=== PATIENT | male | born 1935 | race Caucasian/White ===

== ENCOUNTER 2016-10-06 15:52 | Outpatient (CLI) ==
[2014-01-19 11:38] VITALS: BMI 33.1
--- NOTE | 2016-10-06 16:19 | DI ---
Examination: Five and radiographic images of the cervical spine. Comparison: None available. Reason for study: Pain. FINDINGS: No obvious fracture or listhesis. There are moderate to severe multilevel degenerative d isc disease seen throughout the cervical spine with poor bone mineralization. There is apparent fus ion of the C5 and C6 vertebral bodies. Evaluation is limited in the lower cervical spine by summatio n shadowing. The dens appears to be intact on the Louis view. Impression: No obvious fracture or listhesis with severe degenerative disc disease and arthropathy as described. If clinical concern exists for an osseous injury, a CT scan may be performed. If the re is clinical concern for ligamentous or soft tissue injury, MRI may be performed.
--- NOTE | 2016-10-06 16:19 | DI ---
EXAM: Three views of the left shoulder HISTORY: Left shoulder pain. COMPARISON: CT chest 01/20/2014 FINDINGS: There is no cortical irregularity or displaced fracture of the left shoulder. There is de generative change and osteophyte formation in the glenohumeral joint and acromioclavicular joint. T he soft tissues are unremarkable. IMPRESSION: Degenerative disease of the left shoulder with no displaced fracture or dislocation.
== END 2016-10-06 15:53 | disposition home or self-care (01) ==
LOC: RAD 15:52
PROVIDERS: ATTEND Emergency Medicine
DX: M25.512 Pain in left shoulder (principal); M54.2 Cervicalgia

== ENCOUNTER 2018-02-09 18:24 | Emergency (ER) ==
[2018-02-09 18:35] VITALS: TEMP 100.4; BMI 34.0
[2018-02-09] MEDS ORDERED: DUONEB NEB STA (18:54)
--- NOTE | 2018-02-09 19:24 | ED.PDOC ---
General ED Provider: Dr. LATASHA MONSON Chief Complaint: Shortness of Air Stated Complaint: Patient was seen in the Clinic for cough and conjestion. He was given one shot of Steroids and placed on lovenox with coumadin on hold for an upcoming proceedure. States that he cannot sleep and has mild shortness of breath. Time Seen by Physician: 19:22 Mode of Arrival: Walk-In Information Source: Patient Primary Care Provider: LUCILA ZHAO Nursing and Triage Documentation Reviewed and Agree: Yes Does patient meet sepsis criteria?: Yes If yes, has appropriate treatment been initiated?: Yes System Inflammatory Response Syndrome: Resp >20/Minute Sepsis Protocol: For patient's 13 years and over: Temp is 96.8 and below OR 101 and greater Pulse >90 BPM Resp >20/minute Acutely Altered Mental Status Are patient's symptoms suggestive of a new infection, such as: -Pneumonia -Skin, Soft Tissue -Endocarditis -UTI -Bone, Joint Infection -Implantable Device -Acute Abdominal Infection -Wound Infection -Meningitis -Blood Stream Catheter Infection -Unknown Review of Systems - Review Of Systems Constitutional: Reports: No symptoms Eyes: Reports: No symptoms Ears, Nose, Mouth, Throat: Reports: No symptoms Respiratory: Reports: Short of air Cardiac: Reports: No symptoms GI: Reports: No symptoms : Reports: No symptoms Musculoskeletal: Reports: No symptoms Skin: Reports: No symptoms Neurological: Reports: Anxiety Endocrine: Reports: No symptoms Hematologic/Lymphatic: Reports: No symptoms All Other Systems: Other (insomina) Past Medical History - Past Medical History Previously Healthy: Yes Endocrine: Reports: None Cardiovascular: Reports: Hypertension, A-Fib Respiratory: Reports: None Hematological: Reports: None Gastrointestinal: Reports: None Genitourinary: Reports: None Neuro/Psych: Reports: None Musculoskeletal: Reports: None Cancer: Reports: None - Surgical History General Surgical History: Reports: Adenoidectomy - Family History Family History: Reports: Unknown - Social History Smoking Status: Never smoker Hx Substance Use: No Alcohol Screening: None - Immunizations Tetanus Shot up to Date: No Physical Exam - Physical Exam Appearance: Ill-appearing Ill-appearing: Mild Respiratory: Airway patent, Breath sounds clear, Breath sounds equal, Respirations nonlabored Cardiovascular: RRR, Pulses normal, No rub, No murmur GI/: Soft, Nontender, No masses, Bowel sounds normal, No Organomegaly Musculoskeletal: Normal strength, ROM intact, No edema, No calf tenderness Skin: Warm, Dry, Normal color Neurological: Sensation intact, Motor intact, Reflexes intact, Cranial nerves intact, Alert, Oriented Psychiatric: Anxious Interpretation - Radiology Interpretation Radiology Interpretation By: ED Physician Radiology Results: Negative Exam Interpreted: Portable CXR - EKG Interpretation Time of EKG #1: 19:21 Rate: Tachy Rhythm: Other (Atrial Fibrillation) Ectopy: None Byers: NL Interpretation: Atrial Fib with Rapid ventricular Response. Left bbb Critical Care Note - Critical Care Note Total Time (mins): 0 Course - Course Hematology/Chemistry: 02/09/18 18:58 02/09/18 18:58 Orders, Labs, Meds: Lab Review 02/09/18 02/09/18 02/09/18 18:55 18:58 18:58 WBC 7.52 RBC 6.21 H Hgb 15.7 Hct 50.1 MCV 80.7 MCH 25.3 L MCHC 31.3 L RDW Coeff of Lynda 17.4 H Plt Count 166 Immature Gran % (Auto) 0.4 Neut % (Auto) 69.6 Lymph % (Auto) 16.1 Alpine % (Auto) 12.9 H Eos % (Auto) 0.3 Baso % (Auto) 0.7 Immature Gran # (Auto) 0.0 Neut # (Auto) 5.2 Lymph # (Auto) 1.2 Alpine # (Auto) 1.0 Eos # (Auto) 0.0 Baso # (Auto) 0.1 Puncture Site Rrad O2 Saturation 94.0 L ABG pH 7.480 H ABG pCO2 30.8 L ABG pO2 64.0 L ABG HCO3 23 ABG Total CO2 24 ABG Base Excess -1 Kar Test + FiO2 % 21.0 Sodium 141 Potassium 4.1 Chloride 107 Carbon Dioxide 23 Anion Gap 15.1 BUN 20 H Creatinine 1.42 H Estimated GFR (MDRD) 48.00 BUN/Creatinine Ratio 14.08 Glucose 95 Calcium 9.2 Total Bilirubin 2.4 H AST 25 ALT 29 Alkaline Phosphatase 34 L Total Protein 6.3 Albumin 3.1 L Globulin 3.2 Albumin/Globulin Ratio 0.97 Orders Category Date Time Status ABG DRAW REQUEST Stat CARDIO 02/09/18 18:55 Completed EKG-(ED ONLY) Stat CARDIO 02/09/18 18:52 Completed NEBULIZER TREATMENT Stat CARDIO 02/09/18 18:54 Completed ARTERIAL BLOOD GAS [ABG] Stat LAB 02/09/18 18:55 Completed CBC W/ AUTO DIFF Stat LAB 02/09/18 18:58 Completed COMPREHENSIVE METABOLIC PANEL Stat LAB 02/09/18 18:58 Completed Ipratropium/Albuterol Neb [Duoneb] MEDS 02/09/18 18:54 Discontinued 1 vial NEB ONCE STA CHEST, 1V AP ONLY Stat RADS 02/09/18 18:52 Completed Medications Discontinued Medications Generic Name Dose Route Start Last Admin Trade Name Freq PRN Reason Stop Dose Admin Albuterol/Ipratropium 1 vial 02/09/18 18:54 02/09/18 19:40 Duoneb NEB 02/09/18 18:55 1 vial ONCE STA Administration Vital Signs: Temp Pulse Resp BP Pulse Ox 02/09/18 20:35 122/87 02/09/18 18:29 100.4 F H 84 22 145/72 H 92 L Departure - Departure Time of Disposition: 19:53 Disposition: HOME SELF-CARE Discharge Problem: Bronchitis, Acute insomnia Instructions: Acute Bronchitis (ED), Insomnia (ED) Condition: Stable Pt referred to PMD for follow-up: Yes IPMP verified?: No Additional Instructions: Take home Melatonin for insomnia tonight if it does not work then Try Trazadone Follow up with PCP in 3-5 days Prescriptions: Trazodone HCl 50 mg PO QPM PRN #30 tablet PRN Reason: Insomnia Allergies/Adverse Reactions: Allergies shellfish derived Adverse Reaction (Verified 02/09/18 18:32) Home Medications: Ambulatory Orders Donepezil HCl [Aricept] 10 mg PO DAILY 07/18/13 Escitalopram Oxalate [Lexapro] 20 mg PO DAILY 07/18/13 Fenofibrate [Tricor] 160 mg PO DAILY 07/18/13 Memantine HCl [Namenda] 28 mg PO DAILY 07/18/13 Multivitamin 1 cap PO DAILY 07/18/13 [place]-3 Fatty Acids [Fish Oil] 1,000 mg PO TID 07/18/13 Rosuvastatin Calcium [Crestor] 10 mg PO DAILY 07/18/13 Methylprednisolone [Medrol Dosepak] 4 mg PO DIRECTED #1 tab.ds.pk 01/21/14 Trazodone HCl 50 mg PO QPM PRN #30 tablet 02/09/18 Disposition Discussed With: Patient, Family
[2018-02-09 20:35] VITALS: BP 122/87
--- NOTE | 2018-02-09 20:40 | DI ---
EXAM: Single view of the chest. History: Short of breath Comparison: Chest radiograph 01/19/2014, chest CT 01/20/2014 Findings: Heart size is borderline enlarged. Right lower lobe infiltrate. No appreciable pleural fl uid and no pneumothorax. No acute osseous abnormalities. Impression: Right lower lobe infiltrate
== END 2018-02-09 20:40 | disposition home or self-care (01) ==
LOC: ED 18:24
DX: J40 Bronchitis, not specified as acute or chronic (principal); G47.00 Insomnia, unspecified; I10 Essential (primary) hypertension; I48.91 Unspecified atrial fibrillation; Z79.899 Other long term (current) drug therapy
CPT/HCPCS: 36415; 80053; 82803; 85025; 93005; 93010; 94640; 99283

== ENCOUNTER 2018-02-15 12:43 | Inpatient (IN) ==
[2018-02-15] MEDS ORDERED: NITROSTAT SL PRN (13:14)
[2018-02-15] MEDS ORDERED: VISTARIL INJ IM PRN (13:14)
[2018-02-15] MEDS ORDERED: ATROPINE SULFATE PFS IVP PRN (13:14)
[2018-02-15] MEDS ORDERED: TYLENOL PO PRN (13:14)
[2018-02-15] MEDS ORDERED: MORPHINE 4 MG/ML VIAL IVP PRN (13:14)
[2018-02-15] MEDS ORDERED: SOLU-CORTEF 100 MG IVP SCH (14:30)
[2018-02-15 14:32] VITALS: BMI 33.1
[2018-02-15] MEDS: SODIUM CHLORIDE 1,000 ML IV SCH (15:32)
[2018-02-15] MEDS: ROCEPHIN 1 GM in SODIUM CHLORIDE 50 ML IV SCH (15:37)
--- NOTE | 2018-02-15 15:40 | CT ---
EXAM: CT of the chest without contrast History: Short of breath and wheezing Comparison: Chest radiograph 02/09/2018, chest CT 01/20/2014 Technique: Multiplanar CT images through the thorax were obtained without the administration of IV c ontrast Findings: Heart is borderline enlarged. Coronary calcifications. No pericardial effusion. No thora cic aortic aneurysm. There is interlobular septal thickening, greatest at the lung bases. No pleura l fluid and no pneumothorax. No pathologically enlarged thoracic lymph nodes. Calcified granulomas again seen within the thorax. There are patchy bilateral ground-glass infiltrates, greatest in the l ower lungs. No suspicious lung nodules or lung masses. Within the visualized upper abdomen, nonspecific bilateral perinephric stranding. No acute osseous a bnormalities. Diffuse idiopathic skeletal hyperostosis of the thoracic spine. Impression: 1. Borderline cardiomegaly with interstitial edema. 2. The bilateral ground-glass infiltrates could be related to the edema or superimposed pneumonia. 3. Coronary artery disease.
--- NOTE | 2018-02-15 15:41 | US ---
EXAM: Renal ultrasound HISTORY: Cyst of kidney COMPARISON: None TECHNIQUE: Renal ultrasound was performed FINDINGS: Examination technically limited due to patient body habitus. Right kidney measures 5.6 x 5.6 x 12.0 cm. Left kidney measures 5.9 x 4.4 x 10.3 cm. Renal colic echogenicity is increased bila terally No hydronephrosis or renal calculus large enough to cause acoustic shadowing. 1.3 cm hypoech oic structure in the right superior kidney, 1.6 cm hypoechoic structure in the right inferior kidney that may represent cysts, though have internal echoes and may have internal complexity. Bladder erica sly unremarkable. IMPRESSION: 1. No hydronephrosis. 2. Findings suggesting medical renal disease. 3. Hypoechoic structures in the kidneys may represent cysts, though may have internal complexity and sonographic follow-up is recommended in 6 months for reevaluation.
[2018-02-15] MEDS: XOPENEX 1.25 MG NEB SCH ×2 (16:55→23:40)
[2018-02-15] MEDS ORDERED: OLMESARTAN PO SCH (17:15)
[2018-02-15] MEDS ORDERED: WARFARIN SODIUM 4 MG PO SCH (17:15)
[2018-02-15] MEDS ORDERED: AMLODIPIN PO SCH (17:15)
[2018-02-15] MEDS ORDERED: [UNRECOGNIZED DRUG - OTHER] PO SCH (17:15)
[2018-02-15] MEDS ORDERED: HCTHIAZID PO SCH (17:15)
[2018-02-15] MEDS: ARICEPT PO SCH (20:39)
[2018-02-15] MEDS: COUMADIN PO SCH (20:40)
[2018-02-16] MEDS: XOPENEX 1.25 MG NEB SCH ×4 (05:00→23:25)
[2018-02-16] MEDS: SODIUM CHLORIDE 1,000 ML IV SCH (05:13)
[2018-02-16] MEDS ORDERED: NORVASC PO SCH (09:00)
[2018-02-16] MEDS ORDERED: NON-FORMULARY MEDICATION (Escitalopram Oxalate [Lexapro] 20 MG) PO SCH (09:00)
[2018-02-16] MEDS ORDERED: NAMENDA PO SCH (09:00)
[2018-02-16] MEDS ORDERED: NON-FORMULARY MEDICATION (Rosuvastatin Calcium [Crestor] 10 MG) PO SCH (09:00)
[2018-02-16] MEDS: LEXAPRO PO SCH (09:11)
[2018-02-16] MEDS: BENICAR PO SCH (09:11)
[2018-02-16] MEDS: TRIGLIDE PO SCH (09:11)
[2018-02-16] MEDS: ASPIRIN EC PO SCH (09:11)
[2018-02-16] MEDS: NAMENDA PO SCH ×2 (09:11→22:14)
[2018-02-16] MEDS: CRESTOR PO SCH (09:11)
[2018-02-16] MEDS: ROCEPHIN 1 GM in SODIUM CHLORIDE 50 ML IV SCH (09:12)
[2018-02-16] MEDS: HYDROCHLOROTHIAZIDE PO SCH (09:12)
[2018-02-16] MEDS: ZITHROMAX PO SCH (11:35)
[2018-02-16] MEDS ORDERED: COUMADIN PO ONE (17:00)
[2018-02-16] MEDS: COUMADIN PO SCH (17:02)
[2018-02-16] MEDS: ARICEPT PO SCH (22:14)
[2018-02-17] MEDS: SODIUM CHLORIDE 1,000 ML IV SCH ×2 (00:54→15:03)
[2018-02-17] MEDS: XOPENEX 1.25 MG NEB SCH ×4 (05:15→23:25)
[2018-02-17] MEDS: LEXAPRO PO SCH (08:12)
[2018-02-17] MEDS: ROCEPHIN 1 GM in SODIUM CHLORIDE 50 ML IV SCH (08:12)
[2018-02-17] MEDS: ASPIRIN EC PO SCH (08:12)
[2018-02-17] MEDS: TRIGLIDE PO SCH (08:13)
[2018-02-17] MEDS: CRESTOR PO SCH (08:13)
[2018-02-17] MEDS: NAMENDA PO SCH ×2 (08:13→20:20)
[2018-02-17] MEDS: ZITHROMAX PO SCH (08:13)
--- NOTE | 2018-02-17 09:27 | DI ---
EXAM: Chest PA and lateral HISTORY: Cough. COMPARRISON: 02/09/2018. CT chest 02/15/2018. FINDINGS: The heart is borderline enlarged. Calcified plaques overlie the aorta. Pulmonary vascular ity is within normal limits. Bibasilar patchy airspace opacities are present. No evidence of pleural effusion is seen. Bridging anterior thoracic osteophytes are present. Senescent changes of the katherin ulder girdles are present. IMPRESSION: Bibasilar patchy atelectasis or pneumonia. Borderline cardiomegaly.
[2018-02-17] MEDS ORDERED: COUMADIN PO STA (13:22)
[2018-02-17] MEDS ORDERED: CARDIZEM ONE ×2 (13:55→20:00)
[2018-02-17] MEDS ORDERED: COUMADIN ONE (13:55)
[2018-02-17] MEDS: CARDIZEM PO SCH ×2 (13:58→20:20)
[2018-02-17] MEDS ORDERED: COUMADIN PO ONE (17:00)
[2018-02-17] MEDS: COUMADIN PO SCH (17:07)
[2018-02-17] MEDS: ARICEPT PO SCH (20:20)
[2018-02-18] MEDS: XOPENEX 1.25 MG NEB SCH ×4 (04:55→23:35)
[2018-02-18] MEDS: CARDIZEM PO SCH ×2 (09:10→20:59)
[2018-02-18] MEDS: TRIGLIDE PO SCH (09:10)
[2018-02-18] MEDS: ZITHROMAX PO SCH (09:11)
[2018-02-18] MEDS: HYDROCHLOROTHIAZIDE PO SCH (09:11)
[2018-02-18] MEDS: ASPIRIN EC PO SCH (09:11)
[2018-02-18] MEDS: BENICAR PO SCH (09:12)
[2018-02-18] MEDS: NAMENDA PO SCH ×2 (09:13→20:59)
[2018-02-18] MEDS: CRESTOR PO SCH (09:13)
[2018-02-18] MEDS: LEXAPRO PO SCH (09:13)
[2018-02-18] MEDS: ROCEPHIN 1 GM in SODIUM CHLORIDE 50 ML IV SCH (09:14)
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
--- NOTE | 2018-02-18 11:36 | PN ---
DATE OF SERVICE: 02/17/18 SUBJECTIVE: 82-year-old white male hospitalized with right lower lobe pneumonia. Repeat chest x-ray hasn't shown change, it may be lagging behind but clinically the patient is better. PHYSICAL EXAMINATION: VITAL SIGNS: He is afebrile, pulse is 90 irregular, respiratory rate 16, BP 137 /94, pulse ox 97%. HEENT: Head normocephalic, atraumatic. Eyes: Extraocular muscles are intact. Pupils are equal, round and reactive to light and accommodation. Ears: No lesions. Nose appeared normal. Throat: No exudate or erythema. NECK: Supple. No JVD, no carotid bruit. No lymphadenopathy or thyromegaly. LUNGS: Decreased breath sounds. Clear to auscultation. Percussion note normal. Chest symmetrical. HEART: S1, S2, no S3. No murmurs. No cyanosis or clubbing. No ascites. Pulses: Dorsalis pedis and posterior tibial pulses +1 to +2 both sides. ABDOMEN: Soft. Nontender. Bowel sounds active. No CVA tenderness. No mass felt. EXTREMITIES: No edema. Full range of motion of all extremities, equal. NEUROLOGIC: The patient is not oriented to date and year; oriented to person and place. No focal deficit. Cranial nerves II through XII are grossly intact. No headache, no double vision or headache. SKIN: Not dry. Intact. Turgor - normal. LYMPHATIC: No palpable lymph nodes/no lymphedema. MUSCULOSKELETAL: Normal joints with no swelling. Muscle tone is normal. LABS: Hemoglobin 15, hematocrit 49, WBC 6,000, normal differential. Creatinine 1.2, BUN 16. The patient's INR is 1.1. ASSESSMENT: 1. PNEUMONIA SEEMS TO BE RESOLVING CLINICALLY. PLAN: 1. Continue antibiotic, Rocephin and Zithromax. 2. Continue steroids. 3. Discontinue Amlodipine. 4. Cardizem 60 mg twice a day. 5. Yesterday the patient was given 8 mg Codeine; today will give another 8 mg. 6. Discontinue IV fluids. The patient's is in the room and condition discussed. TIME SPENT: More than 30 minutes. Plan and coordination of the patient's care discussed in the presence of nurse. LAKESHIA
--- NOTE | 2018-02-18 12:58 | CT ---
EXAM: CT chest without contrast. HISTORY: Lower lobe pneumonia. Dyspnea. COMPARISON: Radiograph [address] 02/15/2018. TECHNIQUE: Multiple axial images of the chest were obtained without intravenous contrast. Images we re reformatted in the sagittal and coronal planes. FINDINGS: Evaluation for lymphadenopathy is limited by lack of intravenous contrast. Nonenlarged me diastinal lymph nodes present. Heart size is mildly enlarged. Atherosclerotic calcifications presen t. No pericardial effusion identified. Ground-glass opacities. Interlobular septal thickening with nodular consolidation seen in both lower lobes. Mild left upper lobe perihilar ground-glass opacities are present. There may be a trace randolph unt of pleural fluid bilaterally. No pneumothorax identified. No acute abnormality identified in the upper abdomen. Degenerative changes are present in the spine. IMPRESSION: Stable lower lobe interstitial and alveolar opacities which could represent mild edema or pneumonia.
[2018-02-18] MEDS: COUMADIN PO SCH (17:17)
[2018-02-18] MEDS: ARICEPT PO SCH (20:59)
[2018-02-19] MEDS: XOPENEX 1.25 MG NEB SCH (04:40)
[2018-02-19 05:54] VITALS: BP 137/77; TEMP 98.7
[2018-02-19] MEDS: CRESTOR PO SCH (09:12)
[2018-02-19] MEDS: LEXAPRO PO SCH (09:12)
[2018-02-19] MEDS: ASPIRIN EC PO SCH (09:12)
[2018-02-19] MEDS: NAMENDA PO SCH (09:12)
[2018-02-19] MEDS: TRIGLIDE PO SCH (09:12)
[2018-02-19] MEDS: CARDIZEM PO SCH (09:12)
[2018-02-19] MEDS: ROCEPHIN 1 GM in SODIUM CHLORIDE 50 ML IV SCH (09:13)
--- NOTE | 2018-02-19 09:32 | PN ---
DATE OF SERVICE: 02/18/18 SUBJECTIVE: 82 year old white male hospitalized with right lower lobe pneumonia. The patient 's condition has improved and he is feeling better. REVIEW OF SYSTEMS: CONSTITUTIONAL: No night sweats. No fatigue, malaise, lethargy. No fever or chills. HEENT: Eyes: No visual changes. No eye pain. No eye discharge. ENT: No runny nose. No epistaxis. No sinus pain. No sore throat. No odynophagia. No congestion. RESPIRATORY: No cough, no congestion. No hemoptysis. No shortness of breath. CARDIOVASCULAR: No angina symptoms. No CHF symptoms. No atypical chest pain for CAD. No palpitations. No orthopnea. GASTROINTESTINAL: No abdominal pain. No nausea or vomiting. No diarrhea or constipation. No hematemesis. No hematochezia. GENITOURINARY: No urgency. No frequency. No dysuria. No hematuria. No obstructive symptoms. No discharge. No pain. No significant abnormal bleeding. MUSCULOSKELETAL: No musculoskeletal pain; no joint swelling. NEUROLOGICAL: No headache. No neck pain. No syncope. No seizures. No dizziness. PSYCHIATRIC: Not anxious. No depression. No suicidal thoughts. No homicidal thoughts. SKIN: No rash. No lesions. No wounds. ENDOCRINE: No unexplained weight loss. No weight gain. HEMATOLOGIC/LYMPHATIC: No anemia. No purpura. No petechiae. No prolonged or excessive bleeding. No palpable lymph nodes. PHYSICAL EXAMINATION: GENERAL: The patient is oriented to person and place. VITAL SIGNS: Temperature 98.4, pulse 85, respiratory rate 70, blood pressure 142/76 and pulse ox 99%. HEENT: Head normocephalic, atraumatic. Eyes: Extraocular muscles are intact. Pupils are equal, round and reactive to light and accommodation. Ears: No lesions. Nose appeared normal. Throat: No exudate or erythema. NECK: Supple. No JVD, no carotid bruit. No lymphadenopathy or thyromegaly. LUNGS: Decreased breath sounds but clear to auscultation. Percussion note normal. Chest symmetrical. HEART: S1, S2, no S3. No murmurs. No cyanosis or clubbing. No ascites. Pulses: Dorsalis pedis and posterior tibial pulses +1 to +2 both sides. ABDOMEN: Soft. Nontender. Bowel sounds active. No CVA tenderness. No mass felt. EXTREMITIES: No edema. Full range of motion of all extremities, equal. NEUROLOGIC: No focal deficit. Cranial nerves II through XII are grossly intact. No headache, no double vision or headache. SKIN: Not dry. Intact. Turgor - normal. LYMPHATIC: No palpable lymph nodes/no lymphedema. MUSCULOSKELETAL: Normal joints with no swelling. Muscle tone is normal. ASSESSMENT: 1. Pneumonia seems to be clinically resolving. CT scan of the chest showed infiltrate but otherwise practically unremarkable. 2. Kidney functions are stable, abnormal mild CKD. 3. Advised to lose weight, ADA diet discussed. PLAN: 1. 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 TIME SPENT: More than 30 minutes. Plan and coordination of the patient's care discussed in the presence of nurse. LAKESHIA
--- NOTE | 2018-02-19 10:08 | CM.DICTOOL ---
ADMISSION: 02/15/18 12:43 DISCHARGE: 02/19/18 DATE OF SERVICE: 02/19/18 FINAL DIAGNOSIS PNEUMONIA, RIGHT LOWER LOBE SHORTNESS OF BREATH (RESOLVED) GENERALIZED WEAKNESS (IMPROVED) PAROXYSMAL ATRIAL FIBRILLATION DILATED HYPERTROPHIC CARDIOMYOPATHY HYPERTENSION LEFT VENTRICULAR HYPERTROPHY CONGESTIVE HEART FAILURE CVA, 2007 LEFT SCIATICA CKD, STAGE 2 DYSLIPIDEMIA DEPRESSION ALZHEIMER'S TYPE DEMENTIA LEFT THUMB FRACTURE BY HISTORY CHOLECYSTECTOMY MELANOMA-NOSE EXCISED LAST VITALS Temp Pulse Resp BP Pulse Ox 98.7 F 96 H 20 137/77 97 02/19/18 05:53 02/19/18 05:53 02/19/18 05:53 02/19/18 05:53 02/19/18 05:53 TAKE THESE MEDICATIONS AT HOME Aspirin (Aspirin Ec) 81 mg PO DAILYWM [facility] Last Admin: 02/19/18 09:12 Dose: 81 mg Cephalexin (Keflex) 500 mg PO TID until completed (prescribed in the outpatient setting) Cholecalciferol(Vitamin D3) 1,000 units PO BID Diltiazem HCl (Cardizem) 60 mg PO Q12HR [facility] Last Admin: 02/19/18 09:12 Dose: 60 mg Donepezil HCl (Aricept) 10 mg PO BEDTIME [facility] Last Admin: 02/18/18 20:59 Dose: 10 mg Escitalopram Oxalate (Lexapro) 20 mg PO DAILY [facility] Last Admin: 02/19/18 09:12 Dose: 20 mg Fenofibrate (Triglide) 160 mg PO DAILY [facility] Last Admin: 02/19/18 09:12 Dose: 160 mg Hydrochlorothiazide (Hydrochlorothiazide) 12.5 mg PO [id number] [facility] Last Admin: 02/18/18 09:11 Dose: 12.5 mg Memantine (Namenda) 10 mg PO BID [facility] Last Admin: 02/19/18 09:12 Dose: 10 mg Rosuvastatin Calcium (Crestor) 10 mg PO DAILY [facility] Last Admin: 02/19/18 09:12 Dose: 10 mg Warfarin Sodium (Coumadin) 4 mg PO QPM [facility] Last Admin: 02/18/18 17:17 Dose: 4 mg ALLERGIES shellfish derived Adverse Reaction (Verified 02/09/18 18:32) DISCONTINUED MEDICATIONS Olmesartan/Amoldipine/HCTZ (Tribenzor) 40-5-12.5 mg 1 Tab PO M,W,F,SA NEW PRESCRIPTIONS: Diltiazem HCl [Cardizem] 60 mg PO BID #60 tablet 02/19/18 Hydrochlorothiazide 12.5 mg PO MOWEFRSA #16 capsule 02/19/18 Sacubitril/Valsartan [Entresto 49 mg-51 mg Tablet] 1 each PO BID #60 tablet 05/30 SMOKING: NEVER SMOKER DISEASE SPECIFIC EDUCATION: PNEUMONIA CONGESTIVE HEART FAILURE HOME MEDICATIONS AND CHANGES NEW MEDICATIONS FOLLOW UP ACTIVITY LAB REVIEW: 02/19/18 05:35 02/19/18 05:35 02/19/18 05:35: Sodium 142, Potassium 4.1, Chloride 103, Carbon Dioxide 29, Anion Gap 14.1, BUN 17, Creatinine 1.30 H, Estimated GFR (MDRD) 53.00, BUN/ Creatinine Ratio 13.07, Glucose 106, Calcium 9.6, Total Bilirubin 0.9, AST 31, ALT 30, Alkaline Phosphatase 43 L, Total Protein 6.5, Albumin 3.2 L, Globulin 3.3, Albumin/Globulin Ratio 0.97 02/19/18 05:35: PT 18.2 H, INR 1.85 02/19/18 05:35: WBC 7.27, RBC 6.34 H, Hgb 15.8, Hct 52.2 H, MCV 82.3, MCH 24.9 L , MCHC 30.3 L, RDW Coeff of Lynda 17.5 H, Plt Count 202, Immature Gran % (Auto) 0.4, Neut % (Auto) 59.9, Lymph % (Auto) 24.8, [place] % (Auto) 12.2 H, Eos % (Auto ) 1.7, Baso % (Auto) 1.0, Immature Gran # (Auto) 0.0, Neut # (Auto) 4.4, Lymph # (Auto) 1.8, [place] # (Auto) 0.9, Eos # (Auto) 0.1, Baso # (Auto) 0.1 PLAN: DISCHARGE HOME TODAY RETURN TO SEE DR. ZHAO IN HIS OFFICE ON 02/26/18 AT 9:45 A.M. CONTINUE HOME MEDICATIONS PER LIST PROVIDED BY THE NURSING STAFF DO NOT TAKE YOUR TRIBENZOR (OLMESARTAN/AMLODIPINE/HCTZ) FINISH YOUR KEFLEX PRESCRIPTION COMPLETELY NEW PRESCRIPTIONS DILTIAZEM HCL (CARDIZEM) 60 MG, TAKE ONE TABLET BY MOUTH TWICE DAILY SACUBITRIL/VALSARTAN (ENTRESTO) 49-51 MG, TAKE ONE TABLET BY MOUTH TWICE DAILY HYDROCHLOROTHIAZIDE (HCTZ) 12.5 MG, TAKE ONE CAPSULE DAILY ON MON, WED, FRI AND SAT ACTIVITY GET PLENTY OF REST AT HOME INSIDE. INCREASE YOUR ACTIVITY LEVEL ACCORDING TO YOUR TOLERATION AVOID THE EXTREME HEAT DIET HEALTHY HEART SUMMARY THE PATIENT IS ALERT AND ORIENTED X3. HE CURRENTLY RESIDES AT HOME WITH HIS SPOUSE. HE HAS BEEN INDEPENDENT WITH ADL'S AND DOES NOT REQUIRE USE OF ANY DME WITH THE EXCEPTION OF OXYGEN AT NIGHT. HE DESIRES TO RETURN HOME AT DISCHARGE. HIS SKIN TURGOR IS INTACT AND WITHOUT DECUBITUS ULCERS. HYDRATION AND NUTRITIONAL STATUS ARE VERY MUCH IMPROVED. HE FEELS STRONGER AND HAS SHOWN GOOD CLINICAL IMPROVEMENT DURING THIS STAY. WE HAVE BEGUN A NEW MEDICATION, ENTRESTO, FOR MR. CARABALLO. HE HAS RECEIVED EDUCATION REGARDING USE OF THIS MEDICATION. HE IS ALSO INSTRUCTED TO STOP HIS TRIBENZOR. MR. CARABALLO IS AGREEABLE TO AVOID THE EXTREME HEAT AT HOME AND WILL FOLLOW UP WITH OUR OFFICE INSTRUCTED. CURRENT CODE STATUS DO NOT RESUSCITATE FAISAL BACON APRN LUCILA ZHAO M.D.
--- NOTE | 2018-02-19 10:17 | PCM.PROG ---
Attending Provider: ATTENDING PROVIDER: Dr. LUCILA ZHAO This patient is seen with Maria Teresa Arroyo, Nurse Practitioner. DATE OF SERVICE: 02/19/18 SUBJECTIVE: This 82 year old WHITE/ M was hospitalized 02/15/18. The patient is sitting in chair, alert. Cough is improved, appetite improved. He has been up walking and states he wants to go home. REVIEW OF SYSTEMS: CONSTITUTIONAL: No night sweats. No fatigue, malaise, lethargy. No fever or chills. HEENT: Eyes: No visual changes. No eye pain. No eye discharge. ENT: No runny nose. No epistaxis. No sinus pain. No odynophagia. No congestion. RESPIRATORY: Cough. No congestion. No hemoptysis. No shortness of breath. CARDIOVASCULAR: No angina symptoms. No CHF symptoms. No atypical chest pain for CAD. No palpitations. No orthopnea.. GASTROINTESTINAL: No abdominal pain. No nausea or vomiting. No diarrhea or constipation. No hematemesis. No hematochezia. GENITOURINARY: No urgency. No frequency. No dysuria. No hematuria. No obstructive symptoms. No discharge. No pain. No significant abnormal bleeding. MUSCULOSKELETAL: No musculoskeletal pain; no joint swelling. NEUROLOGICAL: Awake, alert, oriented to time, place and person. No headache. No neck pain. No syncope. No seizures. No dizziness. PSYCHIATRIC: Not anxious. No depression. No suicidal thoughts. No homicidal thoughts. SKIN: No rash. No lesions. No wounds. ENDOCRINE: No unexplained weight loss. No weight gain. HEMATOLOGIC/LYMPHATIC: No anemia. No purpura. No petechiae. No prolonged or excessive bleeding. No palpable lymph nodes. PHYSICAL EXAMINATION: GENERAL: The patient is awake, alert and oriented, sitting in bed in no distress. VITAL SIGNS: Temperature 98.7 F, Pulse 96, Respiratory Rate 20, BP 137/77, Pulse Ox 97% HEENT: Head normocephalic, atraumatic. Eyes: Extraocular muscles are intact. Pupils are equal, round and reactive to light and accommodation. Ears: No lesions. Nose appeared normal. Throat: No exudate or erythema. NECK: Supple. No JVD, no carotid bruit. No lymphadenopathy or thyromegaly. LUNGS: Diminished breath sounds improving right lower lobe. Percussion note normal. Chest symmetrical. HEART: S1, S2, no S3. No murmurs. No cyanosis or clubbing. No ascites. Pulses: Dorsalis pedis and posterior tibial pulses +1 to +2 both sides. ABDOMEN: Soft. Non-tender. Bowel sounds active. No CVA tenderness. No mass felt. EXTREMITIES: No edema. Full range of motion of all extremities, equal. NEUROLOGIC: No focal deficit. Cranial nerves II through XII are grossly intact. No headache, no double vision or headache. SKIN: Not dry. Intact. Turgor-normal. LYMPHATIC: No palpable lymph nodes/no lymphedema. MUSCULOSKELETAL: Normal joints with no swelling. Muscle tone is normal. LAB REVIEW: 02/19/18 05:35 02/19/18 05:35 02/19/18 05:35: Sodium 142, Potassium 4.1, Chloride 103, Carbon Dioxide 29, Anion Gap 14.1, BUN 17, Creatinine 1.30 H, Estimated GFR (MDRD) 53.00, BUN/ Creatinine Ratio 13.07, Glucose 106, Calcium 9.6, Total Bilirubin 0.9, AST 31, ALT 30, Alkaline Phosphatase 43 L, Total Protein 6.5, Albumin 3.2 L, Globulin 3.3, Albumin/Globulin Ratio 0.97 02/19/18 05:35: PT 18.2 H, INR 1.85 02/19/18 05:35: WBC 7.27, RBC 6.34 H, Hgb 15.8, Hct 52.2 H, MCV 82.3, MCH 24.9 L , MCHC 30.3 L, RDW Coeff of Lynda 17.5 H, Plt Count 202, Immature Gran % (Auto) 0.4, Neut % (Auto) 59.9, Lymph % (Auto) 24.8, [place] % (Auto) 12.2 H, Eos % (Auto ) 1.7, Baso % (Auto) 1.0, Immature Gran # (Auto) 0.0, Neut # (Auto) 4.4, Lymph # (Auto) 1.8, [place] # (Auto) 0.9, Eos # (Auto) 0.1, Baso # (Auto) 0.1 ASSESSMENT: 1. RIGHT LOWER LOBE PNEUMONIA 2. GENERALIZED WEAKNESS IMPROVING 3. SHORTNESS OF BREATH RESOLVED 4. CHRONIC KIDNEY DISEASE 5. HISTORY OF CVA PLAN: 1. D/C home 2. Resume Keflex p.o. t.i.d. 3. Rest the rest of the week, advised to stay inside 4. Drink plenty of fluids 5. Cardizem twice a day 6. Will see the patient back in the office next week Plan and coordination of the patient's care discussed in the presence of Baggage Inspector and nurse. CONDITION: Stable SCRIBED BY: BEENA EDGE Brand Coordinator scribed while in presence of service performed by Dr. Zhao/Maria Teresa Arroyo APRN on 02/19/18 ([id number])
--- NOTE | 2018-02-19 10:45 | PN ---
DATE OF SERVICE: 02/16/18 SUBJECTIVE: The patient was seen and examined with Nurse Practitioner. His pneumonia seems to be improving. He wants to go home and appetite has improved. IV antibiotic Zithromax added. Chest x-ray to be done tomorrow. CONDITION: Stable. TIME SPENT: More than 30 minutes. Plan and coordination of the patient's care discussed in the presence of nurse. LAKESHIA
--- NOTE | 2018-02-19 12:23 | ECHO2D ---
Date of Exam: 02/18/18 Ordering Physician: LUCILA ZHAO MD [place] # : [facility] [place] Reason for Echo: PNEUMONIA, DYSPNEA, ATRIAL FIBRILLATION / ATRIAL FLUTTER M-Mode Normal Adult Results LV Dimensions Normal Adult Results AoV Opening excursions >1.6 >1.6 LVEDD-base- 3.5-5.8 6.2 Ao root dimensions 2.0-3.7 3.8 LVESD-base- 3.1-4.6 L. Atrium dimensions 1.9-3.8 6.0 Post. Wall thickness 0.8-1.1 1.5 IV septum (thickness) 0.7-1.2 1.4 Post. Wall excursion 0.72-1.3 0.6 Septal motion 0.5 Systolic motion R. Ventricular cavity 1.5-2.0 NORMAL LVEF 60% 35% Paradoxical septal wall motion NORMAL 2-D : ENLARGED LEFT ATRIAL / LEFT VENTRICULAR CAVITIES - HYPOKINETIC LEFT VENTRICLE. CALCIFIC MITRAL VALVE ANNULUS - CALCIFIC AORTIC VALVE - NO EFFUSION - NO THROMBUS M-MODE: MV: CALCIFIC MITRAL VALVE ANNULUS AV: CALCIFIC AORTIC VALVE TV: NORMAL PV: NORMAL CHAMBER SIZE: ENLARGED LEFT ATRIAL / LEFT VENTRICULAR CAVITIES WALL MOTION: HYPOKINETIC LEFT VENTRICLE PERICARDIUM: NORMAL INTERPRETATION: 1. MILD LEFT VENTRICULAR HYPERTROPHY 2. ENLARGED LEFT ATRIAL / LEFT VENTRICULAR CAVITIES 3. HYPOKINETIC LEFT VENTRICLE; EF 35% 4. CALCIFIC MITRAL VALVE ANNULUS 5. DILATED HYPERTROPHIC CARDIOMYOPATHY MTDD
--- NOTE | 2018-02-19 13:53 | PN ---
DATE OF SERVICE: 02/16/18 SUBJECTIVE: The patient examined while sitting up in the chair in special care. He reports that he slept well last night. He is still unable to have much of a productive cough. He does feel like the breathing treatments do help. He is still pretty weak. Shortness of breath is about the same maybe slightly improved. CT scan did show superimposed area likely pneumonia in the right lower lobe consistent with what the chest x-ray said. Kidney function is slightly improved. REVIEW OF SYSTEMS: CONSTITUTIONAL: No night sweats. Fatigue. No fever or chills. Weakness. HEENT: Eyes: No visual changes. No eye pain. No eye discharge. ENT: No runny nose. No epistaxis. No sinus pain. No sore throat. No odynophagia. No congestion. RESPIRATORY: Cough, no congestion. No hemoptysis. Shortness of breath. CARDIOVASCULAR: No angina symptoms. No CHF symptoms. No atypical chest pain for CAD. No palpitations. No orthopnea. GASTROINTESTINAL: No abdominal pain. No nausea or vomiting. No diarrhea or constipation. No hematemesis. No hematochezia. GENITOURINARY: No urgency. No frequency. No dysuria. No hematuria. No obstructive symptoms. No discharge. No pain. No significant abnormal bleeding. MUSCULOSKELETAL: No musculoskeletal pain; no joint swelling. NEUROLOGICAL: No headache. No neck pain. No syncope. No seizures. No dizziness. PSYCHIATRIC: Not anxious. No depression. No suicidal thoughts. No homicidal thoughts. SKIN: No rash. No lesions. No wounds. ENDOCRINE: No unexplained weight loss. No weight gain. HEMATOLOGIC/LYMPHATIC: No anemia. No purpura. No petechiae. No prolonged or excessive bleeding. No palpable lymph nodes. PHYSICAL EXAMINATION: GENERAL: The patient is alert and oriented. HEENT: Head normocephalic, atraumatic. Eyes: Extraocular muscles are intact. Pupils are equal, round and reactive to light and accommodation. Ears: No lesions. Nose appeared normal. Throat: No exudate or erythema. NECK: Supple. No JVD, no carotid bruit. No lymphadenopathy or thyromegaly. LUNGS: Crackles right lower lobe. Bilateral rhonchi. Clear to auscultation. Percussion note normal. Chest symmetrical. HEART: S1, S2, no S3. No murmurs. No cyanosis or clubbing. No ascites. Pulses: Dorsalis pedis and posterior tibial pulses +1 to +2 both sides. ABDOMEN: Soft. Nontender. Bowel sounds active. No CVA tenderness. No mass felt. EXTREMITIES: No edema. Full range of motion of all extremities, equal. NEUROLOGIC: No focal deficit. Cranial nerves II through XII are grossly intact. No headache, no double vision or headache. SKIN: Not dry. Intact. Turgor - normal. LYMPHATIC: No palpable lymph nodes/no lymphedema. MUSCULOSKELETAL: Normal joints with no swelling. Muscle tone is normal. ASSESSMENT: 1. Right lower lobe pneumonia 2. Shortness of breath seems to be slightly improved 3. Generalized weakness. 4. Hypertension 5. Chronic kidney disease, stage 2-3 PLAN: 1. Will decrease IV fluids to 50cc an hour 2. Add Zithromax 500mg PO daily times 3 days 3. Continue with Xopenex NEB treatment 4. Continue Telemetry 5. INR 0.99, will give an extra 4mg of Coumadin today TIME SPENT: More than 30 minutes. Plan and coordination of the patient's care discussed in the presence of nurse. LAKESHIA
--- NOTE | 2018-02-20 09:08 | DS ---
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 LAST VITALS: Temp Pulse Resp BP Pulse Ox 98.7 F 96 H 20 137/77 97 TAKE THESE MEDICATIONS AT HOME: Aspirin (Aspirin Ec) 81 mg PO DAILYWM JENNIFER Cephalexin (Keflex) 500 mg PO TID until completed (prescribed in the outpatient setting) Cholecalciferol(Vitamin D3) 1,000 units PO BID Diltiazem HCl (Cardizem) 60 mg PO Q12HR JENNIFER Donepezil HCl (Aricept) 10 mg PO BEDTIME JENNIFER Escitalopram Oxalate (Lexapro) 20 mg PO DAILY JENNIFER Fenofibrate (Triglide) 160 mg PO DAILY JENNIFER Hydrochlorothiazide (Hydrochlorothiazide) 12.5 mg PO MoWeFrSa@0900 JENNIFER Memantine (Namenda) 10 mg PO BID JENNIFER Rosuvastatin Calcium (Crestor) 10 mg PO DAILY JENNIFER Warfarin Sodium (Coumadin) 4 mg PO QPM JENNIFER ALLERGIES: shellfish derived Adverse Reaction (Verified 02/09/18 18:32) DISCONTINUED MEDICATIONS: Olmesartan/Amoldipine/HCTZ (Tribenzor) 40-5-12.5 mg 1 Tab PO M,W,F,SA NEW PRESCRIPTIONS: Diltiazem HCl [Cardizem] 60 mg PO BID #60 tablet 02/19/18 Hydrochlorothiazide 12.5 mg PO MOWEFRSA #16 capsule 02/19/18 Sacubitril/Valsartan [Entresto 49 mg-51 mg Tablet] 1 each PO BID #60 tablet 05/30 SMOKING: NEVER SMOKER DISEASE SPECIFIC EDUCATION: PNEUMONIA CONGESTIVE HEART FAILURE HOME MEDICATIONS AND CHANGES NEW MEDICATIONS FOLLOW UP ACTIVITY PLAN: DISCHARGE HOME TODAY RETURN TO SEE DR. ZHAO IN HIS OFFICE ON 02/26/18 AT 9:45 A.M. CONTINUE HOME MEDICATIONS PER LIST PROVIDED BY THE NURSING STAFF DO NOT TAKE YOUR TRIBENZOR (OLMESARTAN/AMLODIPINE/HCTZ) FINISH YOUR KEFLEX PRESCRIPTION COMPLETELY ACTIVITY: GET PLENTY OF REST AT HOME INSIDE. INCREASE YOUR ACTIVITY LEVEL ACCORDING TO YOUR TOLERATION AVOID THE EXTREME HEAT DIET: HEALTHY HEART HOSPITAL COURSE: The patient was hospitalized with right lower lobe pneumonia. The patient had also been noticed to have paroxysmal atrial fibrillation. The patient has been on Coumadin which was continue. The patient has been explained about his findings. Echo showed dilated hypertrophic cardiomyopathy. The patient has been started on Entresto which is Sacubitril and Diovan combination. The patient is advised to take Benicar off. The patient is going to be started 49-50mg twice a day. He is to be seen in two days on followup. The patient has ejection fraction of 30-35%, hypokinetic LV. The patient's other problem was pneumonia which was treated with antibiotics. On discharge the patient was kept on Keflex to be taken for another 5 days. Clinically he has shown a lot of improvement. He was walking all around every where afebrile with normal WBC count clinically his pneumonia was a lot better within 24 hours. The patient is noncompliant and very reluctant to take any medications. He is taken off a lot of medication he used to be on. His dementia is progressing. CONDITION: Stable PROGNOSIS: Poor TIME SPENT: More than 60 minutes. LAKESHIA
--- NOTE | 2018-02-20 09:13 | PN ---
02/15/18: Level 5 02/16/18: Intermittent 02/17/18: Intermittent 02/18/18: Intermittent 02/19/18: D as in discharge MTDD
== END 2018-02-19 10:07 | disposition home or self-care (01) | DRG 204 ==
LOC: SCU 12:43
PROVIDERS: ADMIT Internal Medicine; ATTEND Internal Medicine
DX: R06.02 Shortness of breath (principal); R04.2 Hemoptysis; I42.2 Other hypertrophic cardiomyopathy; I48.0 Paroxysmal atrial fibrillation; I50.9 Heart failure, unspecified; I10 Essential (primary) hypertension; N18.2 Chronic kidney disease, stage 2 (mild); N28.1 Cyst of kidney, acquired; R53.1 Weakness; F41.8 Other specified anxiety disorders; M54.32 Sciatica, left side; E78.5 Hyperlipidemia, unspecified; G30.9 Alzheimer's disease, unspecified; F02.80 Dementia in other diseases classified elsewhere, unspecified severity, without behavioral disturbance, psychotic disturbance, mood disturbance, and anxiety; Z86.73 Personal history of transient ischemic attack (TIA), and cerebral infarction without residual deficits; Z79.01 Long term (current) use of anticoagulants; Z91.14 Patient's other noncompliance with medication regimen
CPT/HCPCS: 36415; 80053; 81001; 82550; 82553; 82803; 84484; 85025; 85610; 87070; 87186; 93005; 93010; 94640; 97802

== ENCOUNTER 2018-04-03 10:48 | Inpatient (IN) ==
[2018-04-03] MEDS ORDERED: ATROPINE SULFATE PFS IVP PRN (11:14)
[2018-04-03] MEDS ORDERED: MORPHINE 4 MG/ML VIAL IVP PRN (11:14)
[2018-04-03] MEDS ORDERED: TYLENOL PO PRN (11:14)
[2018-04-03] MEDS ORDERED: NITROSTAT SL PRN (11:14)
[2018-04-03 11:42] VITALS: BMI 34.4
[2018-04-03] MEDS: LASIX IVP SCH (11:55)
--- NOTE | 2018-04-03 14:16 | DI ---
EXAM: Single view of the chest. History: Short of breath Comparison: Chest radiograph 02/17/2018, chest CT 02/18/2018 Findings: Heart is enlarged. Bibasilar lung infiltrates and increased and there are small bilateral pleural effusions. There is probably underlying interstitial edema. No pneumothorax. No acute oss eous abnormalities. Impression: 1. Cardiomegaly with interstitial edema and small bilateral pleural effusions. 2. Bibasilar pneumonia
[2018-04-03] MEDS: COUMADIN PO SCH (16:10)
--- NOTE | 2018-04-03 16:30 | RS.OTINEVL ---
Subjective - Patient information Date of Evaluation: 04/03/18 Date of Arrival on Unit: 04/03/18 Admitted From:: Emergency Dept Usual Living Arrangement: With Spouse Living Arrangement Comments: Pt lives at home with his . Pt fell at home in the bathroom and fell out of the truck. Medical History: Hypertension, CVA/TIA Medical History Comments:: Pt had a stroke in 2007, and then he had a stroke last week in his eyes according to his 's report from the retina specialist. Pt has had Right RCT repair, Irreg. HB, forgetful. Surgical History Comments:: Right RCT repair. Subjective Information/ Patient Comments:: "I am a little short of breath." "My ribs hurt on the left side." - Level of function Abilities prior to this admission: Pt is independent with LB dressing, Independent with self feeding, Has a vision loss in the right eye. Has a lazy left eye. Current Level of Function: Partially Dependent Comments: Had a CVA in his eyes last week. Current Equipment Used at Home: Oxygen at night. Uses a straight cane. Pain Assessment - Pain Pain Score: 6 Side: left Pain Location Body Site: Ribs Pain Aggravating Factors: ADL's, Changing Position, Standing, Walking Pain Alleviating Factors: Medication, Position Change Interventions - Objective Patient Orientation: Person, Place, Situation Current Interventions: IV's, Oxygen, Telemetry Observation: Pt is SOA, has edema of 3+ in his BLE. Pt is having pain in the Left ribs. Pt has bruising red around the navel, bruising on the right back side ribs, and bruising on the dorsal right foot. Interventions - ROM Right Upper Extremity AROM: WFL's Left Upper Extremity AROM: WFL's - Strength Right Upper Extremity Strength: Mild Weakness Left Upper Extremity Strength: Mild Weakness - Sensation Right Upper Extremity Sensation: Intact/Normal Left Upper Extremity Sensation: Intact/Normal Balance - Sitting Balance Static Sitting Balance: Fair Dynamic Sitting Balance: Fair - Standing Balance Static Standing Balance: Fair Dynamic Standing Balance: Fair - Comments Balance Assessment Comments: Pt is unsteady in gait possibly due to vision loss. ADL Skills - Self Feeding Self Feeding: Independent - Grooming Grooming: Supervision - Bathing Bathing UE: Min Assist Bathing LE: Min Assist - Dressing Dressing UE: Min Assist Dressing LE: Min Assist - Toilet Management Toileting Management: Supervision, CGA Functional Mobility - Bed Mobility Rolling R/L: CGA Scooting: CGA - Transfers Sit to Stand: Min Assist Stand to Sit: Min Assist Stand Pivot Transfers: CGA - Ambulation Weight Bearing Status: FWB Assistive Device Used: Straight Cane Assistance needed with Ambulation: Min Assist - Safety Awareness Safety Awareness: Good JUDE INDEX SCORE: . Additional Treatment Performed - Time with patient Length of Evaluation: 23 Total treatment time: 23 Activities Would you be interested in leaving your room for activities?: Yes Do you have difficulty with your vision?: Yes Patient Interests:: Watching Television, Visiting/Socializing Patient Education Patient Education: Education of diagnosis, Home Exercise Program, Home Safety, Education of Plan of Care Teaching Recipient: Patient Teaching Methods: Discussion Assessment Problem List:: Decreased level of function, Decreased safety/Risk of falls, Weakness, Pain limits previous level of function Rehab Potential: Good Further Therapy Indicated?: Yes Evaluation Complexity: HISTORY: Medium, EXAM OF BODY SYSTEMS: Medium, CLINICAL DECISION MAKING: Medium Short Term Goals - Goals GOAL 1: Pt to increase BUE strength to 4/5. Goal to be met by: 04/08/18 GOAL 2: Pt to increase dyn. standing balance to Fair+ Goal to be met by: 04/09/18 GOAL 3: Pt to increase activity tolerance to 10 minutes. Goal to be met by: 04/11/18 Longterm Goals GOAL 1: Pt to increase BUE strength to 4+/5. Goal to be met by: 04/12/18 GOAL 2: Pt to increase dyn. standing balance to Good. Goal to be met by: 04/12/18 GOAL 3: Pt to increase activity tolerance to 15 minutes. Goal to be met by: 04/12/18 Plan Plan of Care: Therapeutic EX, Neuromuscular Re-Educ, Therapeutic Activity, Self- Care/Home Management Frequency of Treatment: 1-2 X day, as tolerated Duration of Treatment: 1 Week Anticipated Discharge Destination: Home Treatment Diagnosis (ICD 10 Codes): M62.81 muscle weakness, Z74.1 Need for assistance with personal care. Z91.81 At risk for falls. Has the Physician been added for Co-signature?: Yes
[2018-04-03] MEDS ORDERED: TORADOL IVP PRN (16:35)
[2018-04-03] MEDS ORDERED: WARFARIN SODIUM 4 MG PO SCH (17:00)
[2018-04-03] MEDS: VISTARIL INJ IM PRN (18:39)
[2018-04-03] MEDS ORDERED: NAMENDA PO SCH (21:00)
[2018-04-04] MEDS: NAMENDA PO SCH ×3 (00:14→20:56)
[2018-04-04] MEDS: CARDIZEM PO SCH ×3 (00:14→20:57)
[2018-04-04] MEDS: TRIGLIDE PO SCH ×2 (00:15→20:56)
[2018-04-04] MEDS: VITAMIN D PO SCH ×3 (00:15→20:56)
[2018-04-04] MEDS: LASIX IVP SCH (06:11)
[2018-04-04] MEDS ORDERED: ASPIRIN EC PO SCH (08:00)
[2018-04-04] MEDS: LEXAPRO PO SCH (08:53)
[2018-04-04] MEDS: ASPIRIN EC PO SCH (08:53)
[2018-04-04] MEDS: CRESTOR PO SCH (08:53)
[2018-04-04] MEDS: ENTRESTO 24 MG-26 MG TABLET PO SCH ×3 (08:54→20:56)
[2018-04-04] MEDS: ARICEPT PO SCH (08:54)
[2018-04-04] MEDS ORDERED: NON-FORMULARY MEDICATION (Escitalopram Oxalate [Lexapro] 20 MG) PO SCH (09:00)
[2018-04-04] MEDS ORDERED: NON-FORMULARY MEDICATION (Rosuvastatin Calcium [Crestor] 10 MG) PO SCH (09:00)
--- NOTE | 2018-04-04 09:00 | PCM.PROG ---
Attending Provider: ATTENDING PROVIDER: Dr. LUCILA ZHAO This patient is seen with Maria Teresa Arroyo, Nurse Practitioner. DATE OF SERVICE: 04/04/18 SUBJECTIVE: This 82 year old WHITE/ M was hospitalized 04/03/18. The patient is sitting in chair, alert. He had 2.4L out yesterday. Shortness of breath and leg edema is slightly improved. He slept well last night. REVIEW OF SYSTEMS: CONSTITUTIONAL: Weakness. No night sweats. No malaise, lethargy. No fever or chills. HEENT: Eyes: No visual changes. No eye pain. No eye discharge. ENT: No runny nose. No epistaxis. No sinus pain. No odynophagia. No congestion. RESPIRATORY: No cough, no congestion. No hemoptysis. Positive for shortness of breath and leg edema. CARDIOVASCULAR: No angina symptoms. No CHF symptoms. No atypical chest pain for CAD. No palpitations. No orthopnea.. GASTROINTESTINAL: No abdominal pain. No nausea or vomiting. No diarrhea or constipation. No hematemesis. No hematochezia. GENITOURINARY: No urgency. No frequency. No dysuria. No hematuria. No obstructive symptoms. No discharge. No pain. No significant abnormal bleeding. MUSCULOSKELETAL: No musculoskeletal pain; no joint swelling. NEUROLOGICAL: Awake, alert, oriented to time, place and person. No headache. No neck pain. No syncope. No seizures. No dizziness. PSYCHIATRIC: Not anxious. No depression. No suicidal thoughts. No homicidal thoughts. SKIN: No rash. No lesions. No wounds. ENDOCRINE: No unexplained weight loss. No weight gain. HEMATOLOGIC/LYMPHATIC: No anemia. No purpura. No petechiae. No prolonged or excessive bleeding. No palpable lymph nodes. PHYSICAL EXAMINATION: GENERAL: The patient is awake, alert and oriented, sitting in chair in no distress. VITAL SIGNS: Temperature 97.7 F, Pulse 92, Respiratory Rate 20, BP 125/90, Pulse Ox 97% HEENT: Head normocephalic, atraumatic. Eyes: Extraocular muscles are intact. Pupils are equal, round and reactive to light and accommodation. Ears: No lesions. Nose appeared normal. Throat: No exudate or erythema. NECK: Supple. No JVD, no carotid bruit. No lymphadenopathy or thyromegaly. LUNGS: Decreased breath sounds. Clear to auscultation. Percussion note normal. Chest symmetrical. HEART: Irregular heart rate. S1, S2, no S3. No murmurs. No cyanosis or clubbing. No ascites. Pulses: Dorsalis pedis and posterior tibial pulses +1 to +2 both sides. ABDOMEN: Soft. Non-tender. Bowel sounds active. No CVA tenderness. No mass felt. EXTREMITIES: +1 bilateral lower extremity edema. Full range of motion of all extremities, equal. NEUROLOGIC: No focal deficit. Cranial nerves II through XII are grossly intact. No headache, no double vision or headache. SKIN: Not dry. Intact. Turgor-normal. LYMPHATIC: No palpable lymph nodes/no lymphedema. MUSCULOSKELETAL: Normal joints with no swelling. Muscle tone is normal. LAB REVIEW: 04/04/18 04:30 04/04/18 04:30 04/04/18 04:30: Sodium 142, Potassium 3.9, Chloride 107, Carbon Dioxide 26, Anion Gap 12.9, BUN 27 H, Creatinine 1.30 H, Estimated GFR (MDRD) 53.00, BUN/ Creatinine Ratio 20.76, Glucose 103, Calcium 8.9, Total Bilirubin 1.2, AST 24, ALT 25, Alkaline Phosphatase 36 L, Total Protein 5.5 L, Albumin 2.8 L, Globulin 2.7, Albumin/Globulin Ratio 1.04 04/04/18 04:30: WBC 6.21, RBC 6.23 H, Hgb 15.7, Hct 51.9, MCV 83.3, MCH 25.2 L, MCHC 30.3 L, RDW Coeff of Lynda 18.6 H, Plt Count 145, Immature Gran % (Auto) 0.3 , Neut % (Auto) 57.4, Lymph % (Auto) 30.4, Mcdonald % (Auto) 8.7, Eos % (Auto) 2.7, Baso % (Auto) 0.5, Immature Gran # (Auto) 0.0, Neut # (Auto) 3.6, Lymph # (Auto ) 1.9, Mcdonald # (Auto) 0.5, Eos # (Auto) 0.2, Baso # (Auto) 0.0 04/04/18 02:15: Urine Color Dark, Urine Clarity Slightly, Urine pH 5.5, Ur Specific [place] >=1.030, Urine Protein 3+, Urine Glucose (UA) Negative, Urine Ketones Negative, Urine Blood 1+, Urine Nitrite Negative, Urine Bilirubin Negative, Urine Urobilinogen 0.2, Ur Leukocyte Esterase Negative, Urine Microscopic RBC 2-5, Urine Microscopic WBC 5-10, Ur Squamous Epith Cells 2-5, Urine Bacteria Trace, Hyaline Casts 5-10, Urine Mucus 2+ 04/03/18 19:13: Total Creatine Kinase 112, Troponin I 0.0420 04/03/18 12:05: PT 22.0 H, INR 2.25 04/03/18 12:05: TSH 0.886, Free T4 1.59 H 04/03/18 12:05: B-Natriuretic Peptide 883 H 04/03/18 12:05: Total Creatine Kinase 92, Troponin I 0.0410 04/03/18 12:05: Sodium 143, Potassium 3.8, Chloride 109 H, Carbon Dioxide 28, Anion Gap 9.8, BUN 22 H, Creatinine 1.02, Estimated GFR (MDRD) 70.00, BUN/ Creatinine Ratio 21.56, Glucose 81 L, Calcium 8.3, Total Bilirubin 0.9, AST 21, ALT 24, Alkaline Phosphatase 34 L, Total Protein 5.2 L, Albumin 2.6 L, Globulin 2.6, Albumin/Globulin Ratio 1.00 04/03/18 12:05: WBC 6.37, RBC 6.13 H, Hgb 15.5, Hct 50.5, MCV 82.4, MCH 25.3 L, MCHC 30.7 L, RDW Coeff of Lynda 18.9 H, Plt Count 150, Immature Gran % (Auto) 0.3 , Neut % (Auto) 67.4, Lymph % (Auto) 21.7, Mcdonald % (Auto) 8.5, Eos % (Auto) 1.3, Baso % (Auto) 0.8, Immature Gran # (Auto) 0.0, Neut # (Auto) 4.3, Lymph # (Auto ) 1.4, Mcdonald # (Auto) 0.5, Eos # (Auto) 0.1, Baso # (Auto) 0.1 04/03/18 11:17: Puncture Site Rrad, O2 Saturation 95.0, ABG pH 7.386, ABG pCO2 38.5, ABG pO2 78.0 L, ABG HCO3 23.1, ABG Total CO2 24, ABG Base Excess -2, Kar Test +, FiO2 % 21.0 ASSESSMENT: 1. LEG EDEMA 2. ACUTE CHF 3. POLYCYTHEMIA 4. COPD 5. HISTORY OF CVA 6. ATRIAL FIB PLAN: 1. INR daily 2. Last echo 02/27 continue Entresto 3. Elevate legs Plan and coordination of the patient's care discussed in the presence of Button Sawyer and nurse. CONDITION: Stable SCRIBED BY: BEENA EDGE Environmental Maintenance Worker scribed while in presence of service performed by Dr. Zhao/Maria Teresa Arroyo APRN on 04/04/18 ([id number])
[2018-04-04] MEDS: COUMADIN PO SCH (17:38)
[2018-04-04] MEDS: VISTARIL INJ IM PRN (17:51)
[2018-04-05] MEDS: LASIX IVP SCH (06:12)
[2018-04-05] MEDS: ENTRESTO 24 MG-26 MG TABLET PO SCH ×2 (08:03→21:09)
[2018-04-05] MEDS: ARICEPT PO SCH (08:04)
[2018-04-05] MEDS: CARDIZEM PO SCH ×2 (08:04→21:08)
[2018-04-05] MEDS: NAMENDA PO SCH ×2 (08:04→21:08)
[2018-04-05] MEDS: CRESTOR PO SCH (08:04)
[2018-04-05] MEDS: LEXAPRO PO SCH (08:04)
[2018-04-05] MEDS: ASPIRIN EC PO SCH (08:04)
[2018-04-05] MEDS: VITAMIN D PO SCH ×2 (08:04→21:08)
[2018-04-05] MEDS ORDERED: ATIVAN IVP PRN (08:08)
--- NOTE | 2018-04-05 08:15 | PN ---
DATE OF SERVICE: 04/04/18 SUBJECTIVE: The patient is doing better. The patient has CHF and being treated with Entresto and IV Lasix. He is noncompliant of his medication and wants to go home. Confused at time. is present in the room. No symptoms of CHF as present time. His leg edema is less than yesterday. CHF education carried out. The patient was seen and examined with Nurse Practitioner. TIME SPENT: More than 30 minutes. Plan and coordination of the patient's care discussed in the presence of nurse. LAKESHIA
--- NOTE | 2018-04-05 09:30 | HP ---
DATE OF SERVICE: 04/03/18 REASON FOR HOSPITALIZATION/HISTORY OF PRESENT ILLNESS: Leg edema +3 pitting. Shortness of breath with minimal exertion. Orthopnea 2 pillows-slept in chair x 1 year. No chest pain. Appetite OK. PAST MEDICAL HISTORY: CVA 2008 Left sciatica Depression Alzheimer's Dementia CKD 2 Dyslipidemia History fracture left thumb Hypertension/LVA PAST SURGICAL HISTORY: Gallbladder Melanoma nose REVIEW OF SYSTEMS: CONSTITUTIONAL: No fever, Fatigue. HEENT: No sinus drainage, no sore throat. RESPIRATORY: Cough, no congestion. CARDIOVASCULAR: No atypical chest pain for coronary artery disease. No angina. CHF symptoms. No palpitations. Shortness of breath with minimal exertion. GASTROINTESTINAL: No melena or abdominal pain. No GERD. GENITOURINARY: No hematuria, no prostatism, no polyuria. DRAFTING INSTRUCTOR: No blackout, Dizziness, no headache, no double vision. MUSCULOSKELETAL: Osteoarthritis pain, no joint swelling. ENDOCRINE: No weight loss, Weight gain 14 pounds in 1 weeks. SKIN: Not dry, no rash. PSYCHIATRIC: Anxious, no depression, no suicidal thoughts, no homicidal thoughts. Forgetful. SOCIAL HISTORY: Marital Status: . Alcohol Usage: No. Tobacco Usage: No. FAMILY HISTORY: Father Mother Brother No Sister No MEDICATIONS: Diltiazem HCL 60mg PO two times per day Hydrochlorothiazide 12.5mg PO one Vkl-[id number]-Sat Aricept 10mg PO daily Namenda XR 28mg PO daily Fenofibrate 160mg PO daily Lexapro 20mg PO daily Warfarin 5mg PO daily Aspirin 81mg PO daily Entresto 49-51 one tablets two times per day-OFF Antivert 25mg PO three times per day PRN-OFF ALLERGIES: Shellfish derived PHYSICAL EXAMINATION: V/S: Pulse 72, blood pressure 124/70, temperature 97.5, pulse ox 94%. Weight 241.6, BMI 35.7 and height 5'9" GENERAL APPEARANCE: Oriented times three. HEENT: Normal. NECK: JVP 1cm, no bruits. RESPIRATORY: Decreased breath sounds. CARDIOVASCULAR: S1, S2, no S3, no murmurs. No cyanosis, clubbing. No ascites. GI/ABDOMEN: No tenderness. Bowel sounds are active. EXTREMITIES: +3 pitting edema, pulses +1, equal. DRAFTING INSTRUCTOR: Deep tendon reflexes, sensory, motor and gait all normal. RECTAL: Dr. Gutierrez refused repeat/PROSTATE: 03/29 (0.8). LABS: Chest x-ray shows cardiomegaly with interstitial edema and small bilateral pleural effusions as well as bibasilar pneumonia. Free T4 1.59, TSH 0.886, BNP 883, INR 2.25, WBC 6.37, hgb 15.5, hct 50.5, plt count 150, ABG on room air pH 7.386, pCO2 38.5 and pO2 78, base excess -2, bicarb 23.1, TCO2 24, O2 95, sodium 143, potassium 3.8, BUN 22, creatinine 1.2 and glucose 81. AST 21, ALT 24 , total protein 5.2, Albumin 2.6, CK and Troponin are both normal. ASSESSMENT: 1. Leg edema/fluid retention/CHF 2. Polycythemia Dr. Denise 3. History of right lower lobe pneumonia 4. New onset atrial fibrillation 5. Bere cyst ultrasound [facility] 02/27 6. Right lower lobe infiltrate 7. Anxiety-Depression 8. Hypertension/LVH 9. 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 Admit 2. Routine Telemetry orders 3. BNP, ABG 4. T4, TSH 5. Elevate legs 6. Daily weight him 7. D/C HCTZ 8. IV Lasix 40mg now and Q AM 9. Daily INR 10.Echo 2D M Mode 11.Diet low salt TIME SPENT: More than 70 minutes. MTDD
--- NOTE | 2018-04-05 09:36 | PCM.PROG ---
Attending Provider: ATTENDING PROVIDER: Dr. LUCILA ZHAO This patient is seen with Maria Teresa Arroyo, Nurse Practitioner. DATE OF SERVICE: 04/05/18 SUBJECTIVE: This 82 year old WHITE/ M was hospitalized 04/03/18. The patient is sitting in chair, alert with legs elevated. He states he slept well. Weight is down from yesterday. REVIEW OF SYSTEMS: CONSTITUTIONAL: Weakness. No night sweats. No malaise, lethargy. No fever or chills. HEENT: Eyes: No visual changes. No eye pain. No eye discharge. ENT: No runny nose. No epistaxis. No sinus pain. No odynophagia. No congestion. RESPIRATORY: No cough, no congestion. No hemoptysis. Shortness of breath. CARDIOVASCULAR: No angina symptoms. No CHF symptoms. No atypical chest pain for CAD. No palpitations. No orthopnea.. GASTROINTESTINAL: No abdominal pain. No nausea or vomiting. No diarrhea or constipation. No hematemesis. No hematochezia. GENITOURINARY: No urgency. No frequency. No dysuria. No hematuria. No obstructive symptoms. No discharge. No pain. No significant abnormal bleeding. MUSCULOSKELETAL: No musculoskeletal pain; no joint swelling. NEUROLOGICAL: Awake, alert, oriented to time, place and person. No headache. No neck pain. No syncope. No seizures. No dizziness. PSYCHIATRIC: Not anxious. No depression. No suicidal thoughts. No homicidal thoughts. SKIN: No rash. No lesions. No wounds. ENDOCRINE: No unexplained weight loss. No weight gain. HEMATOLOGIC/LYMPHATIC: No anemia. No purpura. No petechiae. No prolonged or excessive bleeding. No palpable lymph nodes. PHYSICAL EXAMINATION: GENERAL: The patient is awake, alert and oriented, sitting in chair in no distress. VITAL SIGNS: Temperature 97.8 F, Pulse 98, Respiratory Rate 20, BP 141/90, Pulse Ox 97% HEENT: Head normocephalic, atraumatic. Eyes: Extraocular muscles are intact. Pupils are equal, round and reactive to light and accommodation. Ears: No lesions. Nose appeared normal. Throat: No exudate or erythema. NECK: Supple. No JVD, no carotid bruit. No lymphadenopathy or thyromegaly. LUNGS: Diminished breath sounds. Clear to auscultation. Percussion note normal. Chest symmetrical. HEART: Irregular heart rate. S1, S2, no S3. No murmurs. No cyanosis or clubbing. No ascites. Pulses: Dorsalis pedis and posterior tibial pulses +1 to +2 both sides. ABDOMEN: Soft. Non-tender. Bowel sounds active. No CVA tenderness. No mass felt. EXTREMITIES: +1 leg edema on left. Full range of motion of all extremities, equal. NEUROLOGIC: No focal deficit. Cranial nerves II through XII are grossly intact. No headache, no double vision or headache. SKIN: Not dry. Intact. Turgor-normal. LYMPHATIC: No palpable lymph nodes/no lymphedema. MUSCULOSKELETAL: Normal joints with no swelling. Muscle tone is normal. LAB REVIEW: 04/05/18 05:00 04/05/18 05:00 04/05/18 05:00: PT 27.9 H, INR 2.88 04/05/18 05:00: Sodium 140, Potassium 3.7, Chloride 104, Carbon Dioxide 27, Anion Gap 12.7, BUN 27 H, Creatinine 1.25 H, Estimated GFR (MDRD) 56.00, BUN/ Creatinine Ratio 21.60, Glucose 111, Calcium 8.8, Total Bilirubin 0.9, AST 25, ALT 24, Alkaline Phosphatase 44 L, Total Protein 5.4 L, Albumin 2.7 L, Globulin 2.7, Albumin/Globulin Ratio 1.00 04/05/18 05:00: WBC 5.80, RBC 6.21 H, Hgb 15.6, Hct 51.4, MCV 82.8, MCH 25.1 L, MCHC 30.4 L, RDW Coeff of Lynda 18.6 H, Plt Count 137 L, Immature Gran % (Auto) 0.3, Neut % (Auto) 69.9, Lymph % (Auto) 19.3, [place] % (Auto) 8.3, Eos % (Auto) 1.7, Baso % (Auto) 0.5, Immature Gran # (Auto) 0.0, Neut # (Auto) 4.1, Lymph # ( Auto) 1.1, [place] # (Auto) 0.5, Eos # (Auto) 0.1, Baso # (Auto) 0.0 04/04/18 10:45: PT 24.5 H, INR 2.52 ASSESSMENT: 1. LEG EDEMA 2. ACUTE CHF 3. POLYCYTHEMIA 4. COPD 5. HISTORY OF CVA 6. ATRIAL FIB PLAN: 1. Ativan 1 mg p.o. b.i.d. 2. Keep legs elevated 3. Daily weights Plan and coordination of the patient's care discussed in the presence of Mechanic'S Assistant and nurse. CONDITION: Stable SCRIBED BY: BEENA EDGE Personal Finance Instructor scribed while in presence of service performed by Dr. Zhao/Maria Teresa Arroyo APRN on 04/05/18 ([id number])
--- NOTE | 2018-04-05 10:50 | PN ---
DATE OF SERVICE: 04/05/18 SUBJECTIVE: Condition is improving. The patient was seen and examined with Nurse Practitioner. His CHF symptoms are much less. His edema is less than on admission time. PHYSICAL EXAMINATION: HEENT: Head normocephalic, atraumatic. Eyes: Extraocular muscles are intact. Pupils are equal, round and reactive to light and accommodation. Ears: No lesions. Nose appeared normal. Throat: No exudate or erythema. NECK: Supple. No JVD, no carotid bruit. No lymphadenopathy or thyromegaly. LUNGS: Decreased breath sounds but more air entry. Clear to auscultation. Percussion note normal. Chest symmetrical. HEART: S1, S2, no S3. No murmurs. No cyanosis or clubbing. No ascites. Pulses: Dorsalis pedis and posterior tibial pulses +1 to +2 both sides. ABDOMEN: Soft. Nontender. Bowel sounds active. No CVA tenderness. No mass felt. EXTREMITIES: No edema. Full range of motion of all extremities, equal. NEUROLOGIC: No focal deficit. Cranial nerves II through XII are grossly intact. No headache, no double vision or headache. SKIN: Not dry. Intact. Turgor - normal. LYMPHATIC: No palpable lymph nodes/no lymphedema. MUSCULOSKELETAL: Normal joints with no swelling. Muscle tone is normal. ASSESSMENT: 1. CHF resolving PLAN: 1. Will repeat the BNP 2. Education carried out about the diet The is present in the room. TIME SPENT: More than 30 minutes. Plan and coordination of the patient's care discussed in the presence of nurse. LAKESHIA
[2018-04-05] MEDS ORDERED: EPSOM SALT TP STA (15:33)
[2018-04-05] MEDS: COUMADIN PO SCH (16:11)
[2018-04-05] MEDS: VISTARIL INJ IM PRN (19:57)
[2018-04-05] MEDS ORDERED: ATIVAN ONE (20:36)
[2018-04-05] MEDS: TRIGLIDE PO SCH (21:08)
[2018-04-06] MEDS: LASIX IVP SCH (06:35)
[2018-04-06] MEDS: NAMENDA PO SCH ×2 (08:53→21:24)
[2018-04-06] MEDS: VITAMIN D PO SCH ×2 (08:53→21:25)
[2018-04-06] MEDS: CRESTOR PO SCH (08:53)
[2018-04-06] MEDS: ENTRESTO 24 MG-26 MG TABLET PO SCH ×2 (08:53→21:24)
[2018-04-06] MEDS: LEXAPRO PO SCH (08:53)
[2018-04-06] MEDS: ARICEPT PO SCH (08:54)
[2018-04-06] MEDS: CARDIZEM PO SCH ×2 (08:54→21:24)
[2018-04-06] MEDS: ASPIRIN EC PO SCH (08:54)
[2018-04-06] MEDS: COUMADIN PO SCH (16:56)
[2018-04-06] MEDS: VISTARIL INJ IM PRN (21:19)
[2018-04-06] MEDS: TRIGLIDE PO SCH (21:25)
[2018-04-07] MEDS: LASIX IVP SCH (06:55)
[2018-04-07] MEDS: VITAMIN D PO SCH ×2 (08:53→20:50)
[2018-04-07] MEDS: ENTRESTO 24 MG-26 MG TABLET PO SCH ×3 (08:53→20:57)
[2018-04-07] MEDS: CRESTOR PO SCH (08:53)
[2018-04-07] MEDS: LEXAPRO PO SCH (08:53)
[2018-04-07] MEDS: ARICEPT PO SCH (08:53)
[2018-04-07] MEDS: CARDIZEM PO SCH ×2 (08:53→20:50)
[2018-04-07] MEDS: ASPIRIN EC PO SCH (08:53)
[2018-04-07] MEDS: NAMENDA PO SCH ×2 (08:53→20:49)
[2018-04-07] MEDS: COUMADIN PO SCH (17:22)
[2018-04-07] MEDS: TRIGLIDE PO SCH (20:49)
[2018-04-07] MEDS: VISTARIL INJ IM PRN (20:50)
[2018-04-08 05:51] VITALS: BP 132/82; TEMP 97.5
[2018-04-08] MEDS: LASIX IVP SCH (05:58)
--- NOTE | 2018-04-08 08:33 | DI ---
EXAM: Two views of the chest. History: Short of breath Comparison: Chest radiograph 04/03/2018 Findings: Heart is mildly enlarged. Persistent and improving interstitial edema and persistent smal l bilateral pleural effusions. No pneumothorax. No acute osseous abnormalities. Diffuse idiopathic skeletal hyperostosis of the thoracic spine. Impression: Mild cardiomegaly with improving interstitial edema and trace bilateral pleural effusion s.
--- NOTE | 2018-04-08 09:26 | PN ---
DATE OF SERVICE: 04/06/18 SUBJECTIVE: The patient was hospitalized with CHF. The patient's condition has improved. His leg edema is much less. The daily weight which is being done from different scales. The patient's leg edema is much less than before and he doesn't have any orthopnea. The patient is happy with his progress. REVIEW OF SYSTEMS: CONSTITUTIONAL: No night sweats. No fatigue, malaise, lethargy. No fever or chills. HEENT: Eyes: No visual changes. No eye pain. No eye discharge. ENT: No runny nose. No epistaxis. No sinus pain. No sore throat. No odynophagia. No congestion. RESPIRATORY: No cough, no congestion. No hemoptysis. No shortness of breath. CARDIOVASCULAR: No angina symptoms. No CHF symptoms. No atypical chest pain for CAD. No palpitations. No PND, no orthopnea. GASTROINTESTINAL: No abdominal pain. No nausea or vomiting. No diarrhea or constipation. No hematemesis. No hematochezia. GENITOURINARY: No urgency. No frequency. No dysuria. No hematuria. No obstructive symptoms. No discharge. No pain. No significant abnormal bleeding. MUSCULOSKELETAL: No musculoskeletal pain; no joint swelling. NEUROLOGICAL: No headache. No neck pain. No syncope. No seizures. No dizziness. PSYCHIATRIC: Not anxious. No depression. No suicidal thoughts. No homicidal thoughts. SKIN: No rash. No lesions. No wounds. ENDOCRINE: No unexplained weight loss. No weight gain. HEMATOLOGIC/LYMPHATIC: No anemia. No purpura. No petechiae. No prolonged or excessive bleeding. No palpable lymph nodes. PHYSICAL EXAMINATION: HEENT: Head normocephalic, atraumatic. Eyes: Extraocular muscles are intact. Pupils are equal, round and reactive to light and accommodation. Ears: No lesions. Nose appeared normal. Throat: No exudate or erythema. NECK: Supple. No JVD, no carotid bruit. No lymphadenopathy or thyromegaly. LUNGS: Decreased breath sounds but clear to auscultation. Percussion note normal. Chest symmetrical. HEART: S1, S2, no S3. No murmurs. No cyanosis or clubbing. No ascites. Pulses: Dorsalis pedis and posterior tibial pulses +1 to +2 both sides. ABDOMEN: Soft. Nontender. Bowel sounds active. No CVA tenderness. No mass felt. EXTREMITIES: No edema. Full range of motion of all extremities, equal. NEUROLOGIC: No focal deficit. Cranial nerves II through XII are grossly intact. No headache, no double vision or headache. SKIN: Not dry. Intact. Turgor - normal. LYMPHATIC: No palpable lymph nodes/no lymphedema. MUSCULOSKELETAL: Normal joints with no swelling. Muscle tone is normal. LABS: Hemoglobin 15, hematocrit 50, WBC 6,000, normal differential. Creatinine 1.1, BUN 25, potassium 3.8. ASSESSMENT: 1. CHF seems to be resolving. PLAN: 1. Continue all the medications including Entresto. 2. Will do BNP. The first BNP was 883; normal is up to 100. 3. Repeat chest x-ray in the morning. TIME SPENT: More than 30 minutes. Plan and coordination of the patient's care discussed in the presence of nurse. LAKESHIA
--- NOTE | 2018-04-08 09:38 | PN ---
DATE OF SERVICE: 04/07/18 SUBJECTIVE: The patient is doing good. He was admitted with CHF. No symptoms of CHF. He wants to go home. REVIEW OF SYSTEMS: CONSTITUTIONAL: No night sweats. No fatigue, malaise, lethargy. No fever or chills. HEENT: Eyes: No visual changes. No eye pain. No eye discharge. ENT: No runny nose. No epistaxis. No sinus pain. No sore throat. No odynophagia. No congestion. RESPIRATORY: No cough, no congestion. No hemoptysis. No shortness of breath. CARDIOVASCULAR: No angina symptoms. No CHF symptoms. No atypical chest pain for CAD. No palpitations. No orthopnea. GASTROINTESTINAL: No abdominal pain. No nausea or vomiting. No diarrhea or constipation. No hematemesis. No hematochezia. GENITOURINARY: No urgency. No frequency. No dysuria. No hematuria. No obstructive symptoms. No discharge. No pain. No significant abnormal bleeding. MUSCULOSKELETAL: No musculoskeletal pain; no joint swelling. NEUROLOGICAL: No headache. No neck pain. No syncope. No seizures. No dizziness. PSYCHIATRIC: Not anxious. No depression. No suicidal thoughts. No homicidal thoughts. SKIN: No rash. No lesions. No wounds. ENDOCRINE: No unexplained weight loss. No weight gain. HEMATOLOGIC/LYMPHATIC: No anemia. No purpura. No petechiae. No prolonged or excessive bleeding. No palpable lymph nodes. PHYSICAL EXAMINATION: HEENT: Head normocephalic, atraumatic. Eyes: Extraocular muscles are intact. Pupils are equal, round and reactive to light and accommodation. Ears: No lesions. Nose appeared normal. Throat: No exudate or erythema. NECK: Supple. No JVD, no carotid bruit. No lymphadenopathy or thyromegaly. LUNGS: Decreased breath sounds but clear to auscultation. Percussion note normal. Chest symmetrical. HEART: S1, S2, no S3. No murmurs. No cyanosis or clubbing. No ascites. Pulses: Dorsalis pedis and posterior tibial pulses +1 to +2 both sides. ABDOMEN: Soft. Nontender. Bowel sounds active. No CVA tenderness. No mass felt. EXTREMITIES: Pedal edema is +1 from +2 to +3. Full range of motion of all extremities, equal. NEUROLOGIC: No focal deficit. Cranial nerves II through XII are grossly intact. No headache, no double vision or headache. SKIN: Not dry. Intact. Turgor - normal. LYMPHATIC: No palpable lymph nodes/no lymphedema. MUSCULOSKELETAL: Normal joints with no swelling. Muscle tone is normal. ASSESSMENT: 1. CHF under control awaiting BNP report and chest x-ray report. 2. Continue Entresto. 3. Lasix IV. CONDITION: Stable TIME SPENT: More than 30 minutes. Plan and coordination of the patient's care discussed in the presence of nurse. LAKESHIA
[2018-04-08] MEDS: CARDIZEM PO SCH (09:44)
[2018-04-08] MEDS: LEXAPRO PO SCH (09:44)
[2018-04-08] MEDS: ENTRESTO 24 MG-26 MG TABLET PO SCH (09:44)
[2018-04-08] MEDS: VITAMIN D PO SCH (09:44)
[2018-04-08] MEDS: ASPIRIN EC PO SCH (09:45)
[2018-04-08] MEDS: NAMENDA PO SCH (09:45)
[2018-04-08] MEDS: CRESTOR PO SCH (09:45)
[2018-04-08] MEDS: ARICEPT PO SCH (09:45)
--- NOTE | 2018-04-08 10:56 | CM.DICTOOL ---
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, EXCISED NO PAST OR CURRENT HISTORY OF TOBACCO USE LAST VITALS Temp Pulse Resp BP Pulse Ox 97.5 F L 96 H 16 132/82 99 04/08/18 05:50 04/08/18 05:50 04/08/18 05:50 04/08/18 05:50 04/08/18 05:50 TAKE THESE MEDICATIONS AT HOME Aspirin (Aspirin Ec) 81 mg PO DAILYWM [facility] Last Admin: 04/08/18 09:45 Dose: 81 mg Cholecalciferol (Vitamin D) 1,000 unit PO BID [facility] Last Admin: 04/08/18 09:44 Dose: 1,000 unit Diltiazem HCl (Cardizem) 60 mg PO BID [facility] Last Admin: 04/08/18 09:44 Dose: 60 mg Donepezil HCl (Aricept) 10 mg PO DAILY [facility] Last Admin: 04/08/18 09:45 Dose: 10 mg Escitalopram Oxalate (Lexapro) 20 mg PO DAILY [facility] Last Admin: 04/08/18 09:44 Dose: 20 mg Fenofibrate (Tricor) 160 mg PO BEDTIME [facility] Last Admin: 04/07/18 20:49 Dose: 160 mg Furosemide (Lasix) 40 mg PO QDAC [facility] Last Admin: 04/08/18 05:58 Dose: 40 mg Memantine (Namenda) 28 mg PO BID [facility] Last Admin: 04/08/18 09:45 Dose: 10 mg Potassium CHL (K-Dur) 20 meq PO DAILY Rosuvastatin Calcium (Crestor) 10 mg PO DAILY [facility] Last Admin: 04/08/18 09:45 Dose: 10 mg Sacubitril/Valsartan (Entresto 49 Mg-51 Mg Tablet) 1 each PO BID [facility] Last Admin: 04/08/18 09:44 Dose: 1 each Warfarin Sodium (Coumadin) 4 mg PO QPM [facility] Last Admin: 04/07/18 17:22 Dose: 4 mg ALLERGIES shellfish derived Adverse Reaction (Verified 02/09/18 18:32) NEW PRESCRIPTIONS: Furosemide [Lasix Tab] 40 mg PO QDAC #30 tablet 04/08/18 Potassium Chloride [K-Dur] 20 meq PO DAILY #30 tab 04/08/18 Sacubitril/Valsartan [Entresto 49 mg-51 mg Tablet] 1 each PO BID #60 tablet SMOKING: NO PAST OR CURRENT HISTORY OF TOBACCO USE DISEASE SPECIFIC EDUCATION: CONGESTIVE HEART FAILURE LEG EDEMA ATRIAL FIBRILLATION HOME MEDICATIONS AND CHANGES MADE DURING THIS STAY NEW PRESCRIPTIONS FOLLOW UP LAB REVIEW: 04/08/18 04:15 04/08/18 04:15 04/08/18 04:55: PT 31.5 H, INR 3.26 04/08/18 04:15: Sodium 141, Potassium 3.6, Chloride 103, Carbon Dioxide 30, Anion Gap 11.6, BUN 20 H, Creatinine 1.29 H, Estimated GFR (MDRD) 54.00, BUN/ Creatinine Ratio 15.50, Glucose 112, Calcium 8.7, Total Bilirubin 1.0, AST 27, ALT 21, Alkaline Phosphatase 44 L, Total Protein 5.1 L, Albumin 2.5 L, Globulin 2.6, Albumin/Globulin Ratio 0.96 04/08/18 04:15: WBC 4.77, RBC 6.01, Hgb 15.0, Hct 49.2, MCV 81.9, MCH 25.0 L, MCHC 30.5 L, RDW Coeff of Lynda 18.4 H, Plt Count 127 L, Immature Gran % (Auto) 0.2, Neut % (Auto) 57.7, Lymph % (Auto) 27.5, [place] % (Auto) 11.7 H, Eos % (Auto ) 2.1, Baso % (Auto) 0.8, Immature Gran # (Auto) 0.0, Neut # (Auto) 2.8, Lymph # (Auto) 1.3, [place] # (Auto) 0.6, Eos # (Auto) 0.1, Baso # (Auto) 0.0 PLAN: DISCHARGE HOME TODAY, 04/08/[address] ZHAO IN HIS OFFICE ON 04/17/18 AT 10:15 A.M. RESUME YOUR HOME MEDICATIONS PER LIST PROVIDED BY THE NURSING STAFF DO NOT TAKE YOUR HYDROCHOLORTHIAZIDE (HCTZ) HOLD YOUR COUMADIN FOR TWO DAYS, THEN RESUME AT THE SAME DOSE NEW PRESCRIPTIONS LASIX 40 MG, TAKE ONE TABLET BY MOUTH DAILY K-TAB 20 MEQ, TAKE ONE TABLET BY MOUTH DAILY SACUBITRIL/VALSARTAN (ENTRESTO) 49/51 MG, TAKE ONE TABLET BY MOUTH TWICE DAILY ACTIVITY GET PLENTY OF REST AT HOME. GRADUALLY INCREASE YOUR ACTIVITY LEVEL ACCORDING TO YOUR TOLERATION KEEP YOUR FEET/LEGS ELEVATED FREQUENTLY POSSIBLE DIET HEALTHY HEART NO ADDED SALT SUMMARY THE PATIENT IS ALERT AND ORIENTED X3. HE CURRENTLY RESIDES AT HOME WITH HIS SPOUSE. HE IS INDEPENDENT WITH ADL'S BUT DOES REQUIRE ASSISTANCE PROVIDED BY HIS SPOUSE AT TIMES. AT HOME HE HAS OXYGEN FOR NIGHTLY USE BUT NO OTHER DME, HOME HEALTH OR HOMEMAKING SERVICES. HE PREFERS TO RETURN TO HIS HOME AT DISCHARGE. THE SKIN TURGOR IS FAIR. THERE ARE NOT DECUBITUS ULCERS PRESENT AT DISCHARGE. THE APPETITE IS EXCELLENT. HYDRATION IS ALSO VERY GOOD. MR. CARABALLO EDEMA HAS IMPROVED A GOOD DEAL SINCE ADMISSION. HE IS AWARE AND AGREEABLE FOR DISCHARGE TODAY. CURRENT CODE STATUS DO NOT RESUSCITATE LUCILA ZHAO M.D.
--- NOTE | 2018-04-08 11:01 | PCM.PROG ---
Attending Provider: ATTENDING PROVIDER: Dr. LUCILA ZHAO DATE OF SERVICE: 04/08/18 SUBJECTIVE: This 82 year old WHITE/ M was hospitalized 04/03/18 with CHF. Condition is improved. He is feeling better. No PND, no orthopnea. Shortness of breath on exertion as usual. No fever or chills. The patient is oriented to time, place and person. The patient since admission has lost about 10 lbs. REVIEW OF SYSTEMS: CONSTITUTIONAL: No night sweats. No fatigue, malaise, lethargy. No fever or chills. HEENT: Eyes: No visual changes. No eye pain. No eye discharge. ENT: No runny nose. No epistaxis. No sinus pain. No odynophagia. No congestion. RESPIRATORY: No cough, no congestion. No hemoptysis. Shortness of breath on exertion as usual. CARDIOVASCULAR: No angina symptoms. No CHF symptoms. No atypical chest pain for CAD. No palpitations. No orthopnea.. GASTROINTESTINAL: No abdominal pain. No nausea or vomiting. No diarrhea or constipation. No hematemesis. No hematochezia. GENITOURINARY: No urgency. No frequency. No dysuria. No hematuria. No obstructive symptoms. No discharge. No pain. No significant abnormal bleeding. MUSCULOSKELETAL: No musculoskeletal pain; no joint swelling. NEUROLOGICAL: Awake, alert, oriented to time, place and person. No headache. No neck pain. No syncope. No seizures. No dizziness. PSYCHIATRIC: Not anxious. No depression. No suicidal thoughts. No homicidal thoughts. SKIN: No rash. No lesions. No wounds. ENDOCRINE: No unexplained weight loss. No weight gain. HEMATOLOGIC/LYMPHATIC: No anemia. No purpura. No petechiae. No prolonged or excessive bleeding. No palpable lymph nodes. PHYSICAL EXAMINATION: GENERAL: The patient is awake, alert and oriented, lying in bed in no distress. VITAL SIGNS: Temperature 97.5 F, Pulse 96, Respiratory Rate 16, BP 132/82, Pulse Ox 99% HEENT: Head normocephalic, atraumatic. Eyes: Extraocular muscles are intact. Pupils are equal, round and reactive to light and accommodation. Ears: No lesions. Nose appeared normal. Throat: No exudate or erythema. NECK: Supple. No JVD, no carotid bruit. No lymphadenopathy or thyromegaly. LUNGS: Decreased breath sounds. Clear to auscultation. Percussion note normal. Chest symmetrical. HEART: S1, S2, no S3. No murmurs. No cyanosis or clubbing. No ascites. Pulses: Dorsalis pedis and posterior tibial pulses +1 to +2 both sides. ABDOMEN: Soft. Non-tender. Bowel sounds active. No CVA tenderness. No mass felt. EXTREMITIES: Trace pedal edema. Full range of motion of all extremities, equal. NEUROLOGIC: No focal deficit. Cranial nerves II through XII are grossly intact. No headache, no double vision or headache. SKIN: Warm and dry. Intact. Turgor-normal. LYMPHATIC: No palpable lymph nodes/no lymphedema. MUSCULOSKELETAL: Normal joints with no swelling. Muscle tone is normal. LAB REVIEW: 04/08/18 04:15 04/08/18 04:15 04/08/18 04:55: PT 31.5 H, INR 3.26 04/08/18 04:15: Sodium 141, Potassium 3.6, Chloride 103, Carbon Dioxide 30, Anion Gap 11.6, BUN 20 H, Creatinine 1.29 H, Estimated GFR (MDRD) 54.00, BUN/ Creatinine Ratio 15.50, Glucose 112, Calcium 8.7, Total Bilirubin 1.0, AST 27, ALT 21, Alkaline Phosphatase 44 L, Total Protein 5.1 L, Albumin 2.5 L, Globulin 2.6, Albumin/Globulin Ratio 0.96 04/08/18 04:15: WBC 4.77, RBC 6.01, Hgb 15.0, Hct 49.2, MCV 81.9, MCH 25.0 L, MCHC 30.5 L, RDW Coeff of Lynda 18.4 H, Plt Count 127 L, Immature Gran % (Auto) 0.2, Neut % (Auto) 57.7, Lymph % (Auto) 27.5, [place] % (Auto) 11.7 H, Eos % (Auto ) 2.1, Baso % (Auto) 0.8, Immature Gran # (Auto) 0.0, Neut # (Auto) 2.8, Lymph # (Auto) 1.3, [place] # (Auto) 0.6, Eos # (Auto) 0.1, Baso # (Auto) 0.0 ASSESSMENT: 1. CHF under control 2. Dilated cardiomegaly with ejection fraction of 40% 3. Dyslipidemia 4. History of stroke 5. History of hypertension 6. Dementia PLAN: 1. Discharge the patient home. 2. Discharge on Lasix 40 mg p.o. daily 3. K-Tab 20 mEq daily 4. Continue Entresto 5. Keep legs elevated at night higher than hip 6. Watch salt intake 7. Will see the patient back next week in my office. Plan and coordination of the patient's care discussed in the presence of Charcoal Kiln Burner and nurse. CONDITION: Stable EDUCATION: Education carried out about CHF. SCRIBED BY: BEENA EDGE Vehicle Assembly Inspector scribed while in presence of service performed by Dr. LUCILA ZHAO on 04/08/18 ([id number])
--- NOTE | 2018-04-08 13:26 | DS ---
DATE OF SERVICE: 04/08/18 FINAL DIAGNOSIS: 1. LEG EDEMA 2. CONGESTIVE HEART FAILURE 3. POLYCYTHEMIA 4. ATRIAL FIBRILLATION 5. DILATED HYPERTROPHIC CARDIOMYOPATHY 6. HYPERTENSION 7. LEFT VENTRICULAR HYPERTROPHY 8. CVA, 2008 9. LEFT SCIATICA 10. CKD, STAGE 2 11. DYSLIPIDEMIA 12. DEPRESSION 13. ALZHEIMER'S TYPE DEMENTIA 14. LEFT THUMB FRACTURE BY HISTORY 15. 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 NO PAST OR CURRENT HISTORY OF TOBACCO USE LAST V/S: Temperature 97.5, pulse 96, respiratory rate 16, BP 132/82, pulse ox 99%. DISCHARGE INSTRUCTIONS: Followup appointment with Dr. Scott in his office on 04/17/18 at 10:15 a.m. MEDICATIONS AT DISCHARGE: Aspirin 81 mg p.o. daily with meal JENNIFER Cholecalciferol 1,000 unit p.o. b.i.d.S CH Cardizem 60 mg p.o. b.i.d. JENNIFER Aricept 10 mg p.o. daily JENNIFER Lexapro 20 mg p.o. daily JENNIFER Tricor 160 mg p.o. bedtime JENNIFER Lasix 40 mg p.o. q.d a.c. JENNIFER Namenda 28 mg p.o. b.i.d. JENNIFER K-Dur 20 mEq p.o. daily Crestor 10 mg p.o. daily JENNIFER Entresto 49 mg - 51 mg one each p.o b.i.d. JENNIFER Coumadin 4 mg p.o. q. p.m. JENNIFER DO NOT TAKE YOUR HYDROCHLOROTHIAZIDE)HCTZ HOLD COUMADIN FOR 2 DAYS THEN RESUME AT THE SAME DOSE NEW PRESCRIPTIONS: Furosemide (Lasix) 40 mg p.o. q.d a.c. Potassium Chloride (K-Dur) 20 mEq p.o. daily Sacubitril/Valsartan (Entresto 49 mg-51 mg) one each p.o. b.i.d. DIET INSTRUCTIONS: Healthy Heart No added salt ACTIVITY: Get plenty of rest at home. Gradually increase your activity level according to your toleration. Keep feet/legs elevated as frequently as possible. SMOKING: No past or current history of tobacco use. DISEASE SPECIFIC EDUCATION: Congestive heart failure Leg edema Atrial fibrillation Home medications and changes made during this stay New prescriptions Followup HOSPITAL COURSE: This is an 82-year-old male hospitalized with CHF, dilated cardiomyopathy with low ejection fraction. BNP on admission was more than 800, now down to 773. He doesn't have any PND or orthoipnea. No palpitations. Lungs have decreased breath sounds. Pedal edema is trace from +3. He has lost 10 lbs. CONDITION: Stable TIME SPENT: More than 60 minutes. MTDD
--- NOTE | 2018-04-08 13:28 | PN ---
CODING FOR BILLING 04/03/18 LEVEL 5 04/04/18 INTERMEDIATE 04/05/18 INTERMEDIATE 04/06/18 INTERMEDIATE 04/07/18 INTERMEDIATE 04/08/18 INTERMEDIATE MTDD
--- NOTE | 2018-04-08 15:18 | RS.OTQKDC ---
OT Discharge Date of Discharge: 04/08/18 Reason for Discharge: Pt discharged to home with home health.
== END 2018-04-08 11:16 | disposition home or self-care (01) | DRG 293 ==
LOC: MEDSURG B 10:48
PROVIDERS: ADMIT Internal Medicine; ATTEND Internal Medicine
DX: I50.9 Heart failure, unspecified (principal); I48.91 Unspecified atrial fibrillation; I42.2 Other hypertrophic cardiomyopathy; I10 Essential (primary) hypertension; I51.7 Cardiomegaly; D75.1 Secondary polycythemia; M54.32 Sciatica, left side; N18.2 Chronic kidney disease, stage 2 (mild); E78.5 Hyperlipidemia, unspecified; G30.9 Alzheimer's disease, unspecified; R60.0 Localized edema; J44.9 Chronic obstructive pulmonary disease, unspecified; F02.80 Dementia in other diseases classified elsewhere, unspecified severity, without behavioral disturbance, psychotic disturbance, mood disturbance, and anxiety; F03.90 Unspecified dementia, unspecified severity, without behavioral disturbance, psychotic disturbance, mood disturbance, and anxiety; Z79.01 Long term (current) use of anticoagulants
CPT/HCPCS: 36415; 80053; 81001; 82550; 82803; 83880; 84439; 84443; 84484; 85025; 85610; 87086; 93005; 93010

== ENCOUNTER 2018-09-16 14:55 | Emergency (ER) ==
[2018-09-16 15:04] VITALS: BP 111/73; TEMP 99; BMI 31.6
--- NOTE | 2018-09-16 16:02 | CT ---
EXAM: CT of the head without contrast History: Headache. Comparison: Brain MRI 03/29/2011 Technique: Multiplanar CT images through the head were obtained without the administration of IV con trast. Findings: Mild mucosal thickening of the bilateral maxillary sinuses. Mastoid air cells are clear i n general. No acute calvarial abnormalities. Intracranially there is diffuse cerebral atrophy. No midline shift and no hydrocephalus. No acute i ntracranial hemorrhage or abnormal extraaxial fluid collections. Old infarction within the right fro ntal parietal region with encephalomalacia and old infarction within the left occipital lobe with enc ephalomalacia. Periventricular and subcortical white matter hypodensities. Impression: 1. No acute intracranial process. 2. Old bilateral infarctions
--- NOTE | 2018-09-16 16:41 | ED.PDOC ---
General ED Provider: Dr. AZAEL ALMARAZ Chief Complaint: Headache Stated Complaint: headache, flu like symptoms Time Seen by Physician: 15:00 (RN PRESENT AT ALL TIMES ) Mode of Arrival: Walk-In Information Source: Patient Exam Limitations: No limitations Primary Care Provider: LUCILA ZHAO Nursing and Triage Documentation Reviewed and Agree: Yes Does patient meet sepsis criteria?: Yes If yes, has appropriate treatment been initiated?: No System Inflammatory Response Syndrome: Not Applicable Sepsis Protocol: For patient's 13 years and over: Temp is 96.8 and below OR 101 and greater Pulse >90 BPM Resp >20/minute Acutely Altered Mental Status Are patient's symptoms suggestive of a new infection, such as: -Pneumonia -Skin, Soft Tissue -Endocarditis -UTI -Bone, Joint Infection -Implantable Device -Acute Abdominal Infection -Wound Infection -Meningitis -Blood Stream Catheter Infection -Unknown Neurological Complaint Exam - Headache Complaint/Exam Onset: Gradual Duration: 1 DAY Symptoms Are: Still present Timing: Intermittent Episodes Lasting: Hours Worst Headache Ever: No Initial Severity: Mild Current Severity: Mild Location: Diffuse Character: Reports: Dull Aggravating: Reports: None Alleviating: Reports: None Associated Signs and Symptoms: Denies: Dizziness, Seizure, Nausea, Vomiting, Sinus pressure, Fever, Neck pain, Neck stiffness, Decreased LOC, Visual changes Related History: Reports: Similar episode Related Surgical History: Reports: None SAH Risk Factors: Reports: None Meningitis Risk Factors: Reports: None SDH Risk Factors: Reports: Male Temporal Arteritis Risk Factors: Reports: None Normal Head CT Within Last 12 Months: No Fundoscopic Exam: Present: Normal Findings Papilledema Present: No Temporal Artery Tenderness: Present: None Sinus Tenderness: Present: None TMJ Tenderness: Present: None Glascow Coma Scale (see protocol): 15 Meningeal Signs Positive: No Pain on Passive Flexion-Positive Kernig's: No ROM Limited In: No Limitiations Focal Weakness: Present: None Focal Sensory Loss: Present: None Gait: Normal Nystagmus Present: No Gag Reflex Present: Yes [id number]: Normal Findings Babinski Sign: Negative Right, Negative Left Differential Diagnoses: Migraine Review of Systems - Review Of Systems Constitutional: Reports: No symptoms Eyes: Reports: No symptoms Ears, Nose, Mouth, Throat: Reports: No symptoms Respiratory: Reports: No symptoms Cardiac: Reports: No symptoms GI: Reports: No symptoms : Reports: No symptoms Musculoskeletal: Reports: No symptoms Skin: Reports: No symptoms Neurological: Reports: Headache Endocrine: Reports: No symptoms Hematologic/Lymphatic: Reports: No symptoms All Other Systems: Reviewed and Negative Past Medical History - Past Medical History Previously Healthy: Yes Endocrine: Reports: None Cardiovascular: Reports: Hypertension, A-Fib Respiratory: Reports: None Hematological: Reports: None Gastrointestinal: Reports: None Genitourinary: Reports: None Neuro/Psych: Reports: None Musculoskeletal: Reports: None Cancer: Reports: None - Surgical History General Surgical History: Reports: Adenoidectomy - Family History Family History: Reports: Unknown - Social History Smoking Status: Never smoker Hx Substance Use: No Alcohol Screening: None Physical Exam - Physical Exam Appearance: Well-appearing, No pain distress, Well-nourished Eyes: BRADLEY, EOMI, Conjunctiva clear ENT: Ears normal, Nose normal, Oropharynx normal Respiratory: Airway patent, Breath sounds clear, Breath sounds equal, Respirations nonlabored Cardiovascular: RRR, Pulses normal, No rub, No murmur GI/: Soft, Nontender, No masses, Bowel sounds normal, No Organomegaly Musculoskeletal: Normal strength, ROM intact, No edema, No calf tenderness Skin: Warm, Dry, Normal color Neurological: Sensation intact, Motor intact, Reflexes intact, Cranial nerves intact, Alert, Oriented Psychiatric: Affect appropriate, Mood appropriate - NIH Stroke Scale 1a. Level of Consciousness: 0=Alert and keenly responsive 1b. Level of Consciousness Questions: 0=Answers correctly to two questions 1c. Level of Consciousness Commands: 0=Performs two tasks correctly 2. Best Gaze: 0=Normal 3. Visual: 0=No visual loss 4. Facial Palsy: 0=Normal 5a. Motor Left Arm: 0=No drift,arm holds 90 degrees for 10 sec., leg 30 degrees for 5 sec. 5b. Motor Right Arm: 0=No drift,arm holds 90 degrees for 10 sec., leg 30 degrees for 5 sec. 6a. Motor Left Le=No drift,arm holds 90 degrees for 10 sec., leg 30 degrees for 5 sec. 6b. Motor Right Le=No drift,arm holds 90 degrees for 10 sec., leg 30 degrees for 5 sec. 7. Limb Ataxia: 0=Absent 8. Sensory: 0=Normal 9. Best Language: 0=No aphasia 10. Dysarthria: 0=Normal 11. Extincion and Inattention: 0=Normal Stroke Scale Total: 0 Interpretation - Radiology Interpretation Radiology Interpretation By: Radiologist Radiology Results: No acute changes Exam Interpreted: CT Scan (OF BRAIN) Re-Evaluation - Re-Evaluation Time of Re-Evaluation: 16:00 Status: Improved Vital Signs Stable: Yes Pain Level: 0 Appearance: NAD Lungs: Clear Skin: Warm and Dry Neuro: Alert and Oriented X3 CV: RRR - Re-Evaluation Time of Re-Evaluation: 16:42 Status: Improved Vital Signs Stable: Yes Pain Level: 0 Appearance: NAD Skin: Warm and Dry Neuro: Alert and Oriented X3 CV: RRR Critical Care Note - Critical Care Note Total Time (mins): 0 Course - Course Hematology/Chemistry: 09/16/18 15:30 Orders, Labs, Meds: Lab Review 09/16/18 09/16/18 09/16/18 15:30 15:30 15:30 WBC 5.35 RBC 6.46 H Hgb 13.5 L Hct 47.3 MCV 73.2 L MCH 20.9 L MCHC 28.5 L RDW Coeff of Lynda 19.2 H Plt Count 240 Immature Gran % (Auto) 0.2 Neut % (Auto) 56.2 Lymph % (Auto) 27.9 [place] % (Auto) 11.8 H Eos % (Auto) 2.6 Baso % (Auto) 1.3 Immature Gran # (Auto) 0.0 Neut # (Auto) 3.0 Lymph # (Auto) 1.5 [place] # (Auto) 0.6 Eos # (Auto) 0.1 Baso # (Auto) 0.1 Hypochromasia 1+ Anisocytosis 1+ Lactic Acid Amylase 93.5 Procalcitonin < 0.05 Influ A Molecular Assay Influ B Molecular Assay 09/16/18 09/16/18 15:30 15:30 WBC RBC Hgb Hct MCV MCH MCHC RDW Coeff of Lynda Plt Count Immature Gran % (Auto) Neut % (Auto) Lymph % (Auto) [place] % (Auto) Eos % (Auto) Baso % (Auto) Immature Gran # (Auto) Neut # (Auto) Lymph # (Auto) [place] # (Auto) Eos # (Auto) Baso # (Auto) Hypochromasia Anisocytosis Lactic Acid 0.91 Amylase Procalcitonin Influ A Molecular Assay Negative by naat Influ B Molecular Assay Negative by naat Orders Category Date Time Status AMYLASE Stat LAB 09/16/18 15:30 Completed BLOOD CULTURE (ED ONLY) Stat LAB 09/16/18 15:30 Received BLOOD CULTURE Stat LAB 09/16/18 15:14 Received CBC W/ AUTO DIFF Stat LAB 09/16/18 15:30 Completed FLU A/B MOLECULAR Stat LAB 09/16/18 15:30 Completed LACTIC ACID Stat LAB 09/16/18 15:30 Completed MOLECULAR GROUP A STREP Stat LAB 09/16/18 15:30 Completed PROCALCITONIN Stat LAB 09/16/18 15:30 Completed RBC MORPHOLOGY Stat LAB 09/16/18 15:[address] HEAD W/O CONTRAST Stat RADS 09/16/18 15:14 Completed Vital Signs: Temp Pulse Resp BP Pulse Ox 09/16/18 14:55 99.0 F 69 24 111/73 90 L Departure - Departure Time of Disposition: 16:42 Disposition: HOME SELF-CARE Discharge Problem: Headache Instructions: Acute Headache (DC) Condition: Good Pt referred to PMD for follow-up: Yes IPMP verified?: No Additional Instructions: Please call your Family Physician as soon as possible to schedule a follow-up appointment. Allergies/Adverse Reactions: Allergies shellfish derived Adverse Reaction (Verified 09/16/18 15:14) Home Medications: Ambulatory Orders Donepezil HCl [Aricept] 10 mg PO DAILY 07/18/13 Escitalopram Oxalate [Lexapro] 20 mg PO DAILY 07/18/13 Fenofibrate [Tricor] 160 mg PO BEDTIME 07/18/13 Memantine HCl [Namenda] 28 mg PO BEDTIME 07/18/13 Rosuvastatin Calcium [Crestor] 10 mg PO DAILY 07/18/13 Diltiazem HCl [Cardizem] 60 mg PO BID #60 tablet 02/19/18 Potassium Chloride [K-Dur] 20 meq PO DAILY #30 tab 04/08/18 Sacubitril/Valsartan [Entresto 49 mg-51 mg Tablet] 1 each PO BID #60 tablet Enoxaparin Sodium [Lovenox] 100 mg SQ DAILY 09/16/18 Furosemide [Lasix Tab] 20 mg PO QDAC 09/16/18 Ropinirole HCl [Requip] 0.5 mg PO BEDTIME 09/16/18
== END 2018-09-16 16:58 | disposition home or self-care (01) ==
LOC: ED 14:55
DX: R51 Headache (principal); I10 Essential (primary) hypertension; Z79.899 Other long term (current) drug therapy
CPT/HCPCS: 36415; 82150; 83605; 84145; 85008; 85025; 85651; 87040; 87502; 87651; 99283

== ENCOUNTER 2018-12-04 10:45 | Outpatient (CLI) ==
--- NOTE | 2018-12-04 12:00 | DI ---
EXAM: CHEST FRONTAL AND LATERAL VIEWS HISTORY: Cough, right lower lobe infiltrate. COMPARISON: 04/07/2018 FINDINGS: Stable cardiomegaly. Low lung volumes. No consolidated pneumonia is identified. There i s no vascular congestion, pneumothorax or pleural fluid. IMPRESSION: 1. No definite pneumonia currently seen.
== END 2018-12-04 10:46 | disposition home or self-care (01) ==
LOC: RAD 10:45
PROVIDERS: ATTEND Internal Medicine
DX: R05 Cough (principal)

== ENCOUNTER 2018-12-24 08:58 | Outpatient (CLI) ==
--- NOTE | 2018-12-24 10:22 | CT ---
EXAM: CT chest without contrast HISTORY: Coughing up blood COMPARISON: 02/18/2018 TECHNIQUE: CT chest performed without intravenous contrast. Coronal and sagittal reformatted images obtained. FINDINGS: Thyroid and thoracic inlet appear normal. Heart mildly enlarged. Coronary calcifications . No pericardial effusion. Aorta normal in caliber. Mild atherosclerosis. The visualized portion upper abdomen demonstrates no acute abnormality. Colonic diverticulosis. No acute abnormalities of the bones. Degenerative change in the spine. Stable sclerotic focus in the T6 appears unchanged, li [place]. Central airway patent. Mild bibasilar atelectasis with interstitial opacities. N o airspace consolidation. No airspace consolidation. No pleural effusion. No pneumothorax. IMPRESSION: 1. Bibasilar interstitial opacities that could relate to atelectasis/scarring with mild superimposed interstitial edema. No airspace consolidation. 2. Cardiomegaly. Coronary calcifications.
== END 2018-12-24 08:59 | disposition home or self-care (01) ==
LOC: RAD 08:58
PROVIDERS: ATTEND Internal Medicine
DX: R04.2 Hemoptysis (principal)

== ENCOUNTER 2018-12-30 11:36 | Inpatient (IN) ==
[2018-12-30 12:15] VITALS: BMI 33.3
[2018-12-30] MEDS ORDERED: NITROSTAT SL PRN (12:31)
[2018-12-30] MEDS ORDERED: LASIX IVP STA (12:31)
[2018-12-30] MEDS ORDERED: SOLU-CORTEF 250 MG IVP STA (12:31)
[2018-12-30] MEDS ORDERED: ATROPINE SULFATE PFS IVP PRN (12:31)
[2018-12-30] MEDS ORDERED: TYLENOL PO PRN (12:31)
[2018-12-30] MEDS ORDERED: VISTARIL INJ IM PRN (12:31)
[2018-12-30] MEDS: PROTONIX IV IVP SCH ×2 (13:25→20:23)
--- NOTE | 2018-12-30 15:26 | DI ---
EXAM: Single view of the chest. History: Short of breath and cough. Comparison: Chest radiograph 12/04/2018 Findings: Heart is mildly enlarged. No focal consolidation. No appreciable pleural fluid and no pn eumothorax. No acute osseous abnormalities. Impression: Mild cardiomegaly without acute disease in the chest.
[2018-12-30] MEDS: LEVAQUIN 500 MG in PREMIX 100 ML D5W 1 BAG IV SCH (16:08)
[2018-12-30] MEDS: XOPENEX 1.25 MG NEB SCH ×2 (17:06→23:30)
[2018-12-30] MEDS: SOLU-CORTEF 250 MG IVP SCH ×2 (18:36→23:59)
[2018-12-30] MEDS: TRIGLIDE PO SCH (20:26)
[2018-12-30] MEDS: REQUIP PO SCH (20:26)
[2018-12-30] MEDS: NAMENDA PO SCH (20:27)
[2018-12-30] MEDS: CARDIZEM PO SCH (20:27)
[2018-12-30] MEDS: VALSARTAN PO SCH (20:28)
[2018-12-30] MEDS: SACUBITRIL PO SCH (20:28)
[2018-12-30] MEDS ORDERED: NAMENDA PO SCH (21:00)
[2018-12-30] MEDS ORDERED: NON-FORMULARY MEDICATION (Ropinirole Hcl [Requip] 0.5 MG) PO SCH ×2 (21:00)
[2018-12-31] MEDS: XOPENEX 1.25 MG NEB SCH ×4 (04:50→23:30)
[2018-12-31] MEDS: SOLU-CORTEF 250 MG IVP SCH ×4 (05:33→23:15)
[2018-12-31] MEDS: LASIX IVP SCH (05:33)
[2018-12-31] MEDS ORDERED: NON-FORMULARY MEDICATION (Rosuvastatin Calcium [Crestor] 10 MG) PO SCH (09:00)
[2018-12-31] MEDS ORDERED: ASPIRIN EC PO SCH (09:00)
[2018-12-31] MEDS: ASPIRIN EC PO SCH (09:01)
[2018-12-31] MEDS: K-DUR PO SCH (09:01)
[2018-12-31] MEDS: ARICEPT PO SCH (09:01)
[2018-12-31] MEDS: NAMENDA PO SCH ×2 (09:01→20:18)
[2018-12-31] MEDS: CARDIZEM PO SCH ×2 (09:01→20:17)
[2018-12-31] MEDS: CRESTOR PO SCH (09:02)
[2018-12-31] MEDS: LEVAQUIN 500 MG in PREMIX 100 ML D5W 1 BAG IV SCH (09:02)
[2018-12-31] MEDS: PROTONIX IV IVP SCH ×2 (09:02→20:18)
--- NOTE | 2018-12-31 09:24 | PCM.PROG ---
Attending Provider: ATTENDING PROVIDER: Dr. LUCILA ZHAO DATE OF SERVICE: 12/31/18 SUBJECTIVE: This 83 year old WHITE/ M was hospitalized 12/30/18 with acute bronchitis, severe dysphasia and pneumonia. The patient's condition has improved remarkably. His swallowing is better, less congestion and no hemoptysis. REVIEW OF SYSTEMS: CONSTITUTIONAL: No night sweats. No fatigue, malaise, lethargy. No fever or chills. HEENT: Eyes: No visual changes. No eye pain. No eye discharge. ENT: No runny nose. No epistaxis. No sinus pain. No odynophagia. No congestion. RESPIRATORY: No cough, no congestion. No hemoptysis. No shortness of breath. CARDIOVASCULAR: No angina symptoms. No CHF symptoms. No atypical chest pain for CAD. No palpitations. No orthopnea.. GASTROINTESTINAL: No abdominal pain. No nausea or vomiting. No diarrhea or constipation. No hematemesis. No hematochezia. Swallow better. GENITOURINARY: No urgency. No frequency. No dysuria. No hematuria. No obstructive symptoms. No discharge. No pain. No significant abnormal bleeding. MUSCULOSKELETAL: No musculoskeletal pain; no joint swelling. NEUROLOGICAL: Awake, alert, oriented to time, place and person. No headache. No neck pain. No syncope. No seizures. No dizziness. PSYCHIATRIC: Not anxious. No depression. No suicidal thoughts. No homicidal thoughts. SKIN: No rash. No lesions. No wounds. ENDOCRINE: No unexplained weight loss. No weight gain. HEMATOLOGIC/LYMPHATIC: No anemia. No purpura. No petechiae. No prolonged or excessive bleeding. No palpable lymph nodes. PHYSICAL EXAMINATION: GENERAL: The patient is awake, alert and oriented to time, place and person, lying in bed in no distress. VITAL SIGNS: Temperature 97.7 F, Pulse 93, Respiratory Rate 16, BP 142/82, Pulse Ox 100% HEENT: Head normocephalic, atraumatic. Eyes: Extraocular muscles are intact. Pupils are equal, round and reactive to light and accommodation. Ears: No lesions. Nose appeared normal. Throat: No exudate or erythema. NECK: Supple. No JVD, no carotid bruit. No lymphadenopathy or thyromegaly. LUNGS: Decreased breath sounds. Good air entry. Clear to auscultation. Percussion note normal. Chest symmetrical. HEART: S1, S2, no S3. No murmurs. No cyanosis or clubbing. No ascites. Pulses: Dorsalis pedis and posterior tibial pulses +1 to +2 both sides. ABDOMEN: Soft. Non-tender. Bowel sounds active. No CVA tenderness. No mass felt. EXTREMITIES: No edema. Full range of motion of all extremities, equal. NEUROLOGIC: No focal deficit. Cranial nerves II through XII are grossly intact. No headache, no double vision or headache. SKIN: Warm and dry. Intact. Turgor-normal. LYMPHATIC: No palpable lymph nodes/no lymphedema. MUSCULOSKELETAL: Normal joints with no swelling. Muscle tone is normal. LAB REVIEW: 12/31/18 04:45 12/31/18 04:45 12/31/18 04:45: WBC 4.47, RBC 5.69, Hgb 11.4 L, Hct 40.6 L, MCV 71.4 L, MCH 20.0 L, MCHC 28.1 L, RDW Coeff of Lynda 20.5 H, Plt Count 224, Immature Gran % ( Auto) 0.4, Neut % (Auto) 85.0, Lymph % (Auto) 10.3, [place] % (Auto) 4.3, Eos % ( Auto) 0.0, Baso % (Auto) 0.0, Immature Gran # (Auto) 0.0, Neut # (Auto) 3.8, Lymph # (Auto) 0.5 L, [place] # (Auto) 0.2 L, Eos # (Auto) 0.0, Baso # (Auto) 0.0, Hypochromasia 1+, Anisocytosis 1+, Spherocytes 1+, Ovalocytes 1+ 12/31/18 04:45: Sodium 139.9, Potassium 4.27, Chloride 102.5, Carbon Dioxide 28.0, Anion Gap 13.67, BUN 27.2 H, Creatinine 1.13 H, Estimated GFR (MDRD) 62.00 , BUN/Creatinine Ratio 24.07, Glucose 143.8 H, Calcium 8.67, Total Bilirubin 0.79, AST 24.1, ALT 21.6, Alkaline Phosphatase 52.3 L, Total Protein 5.86 L, Albumin 3.56, Globulin 2.30, Albumin/Globulin Ratio 1.54 12/31/18 04:45: PT 17.2 H, INR 1.75 12/30/18 20:58: Total Creatine Kinase 64.7, Troponin I < 0.012 12/30/18 16:10: Urine Color Yellow, Urine Clarity Clear, Urine pH 7.0, Ur Specific [place] 1.015, Urine Protein Trace, Urine Glucose (UA) Negative, Urine Ketones Negative, Urine Blood Negative, Urine Nitrite Negative, Urine Bilirubin Negative, Urine Urobilinogen 0.2, Ur Leukocyte Esterase Negative, Ur Squamous Epith Cells 0-2 12/30/18 13:18: Sodium 138.8, Potassium 4.31, Chloride 105.3, Carbon Dioxide 25.0, Anion Gap 12.81, BUN 27.7 H, Creatinine 1.27 H, Estimated GFR (MDRD) 54.00 , BUN/Creatinine Ratio 21.81, Glucose 135.1 H, Calcium 8.77, Total Bilirubin 0.80, AST 26.4, ALT 23.5, Alkaline Phosphatase 53.4 L, Total Creatine Kinase 62.6, Troponin I 0.015, NT-Pro-B Natriuret Pep 1800.000 H, Total Protein 6.01 L , Albumin 3.68, Globulin 2.33, Albumin/Globulin Ratio 1.57, TSH 0.928 12/30/18 13:18: WBC 7.02, RBC 5.65, Hgb 11.4 L, Hct 40.4 L, MCV 71.5 L, MCH 20.2 L, MCHC 28.2 L, RDW Coeff of Lynda 20.4 H, Plt Count 229, Immature Gran % ( Auto) 0.4, Neut % (Auto) 67.0, Lymph % (Auto) 19.5, [place] % (Auto) 9.4, Eos % ( Auto) 3.0, Baso % (Auto) 0.7, Immature Gran # (Auto) 0.0, Neut # (Auto) 4.7, Lymph # (Auto) 1.4, [place] # (Auto) 0.7, Eos # (Auto) 0.2, Baso # (Auto) 0.1, Hypochromasia 1+, Anisocytosis 1+ 12/30/18 13:18: Free T4 1.18 12/30/18 13:18: PT 18.7 H, INR 1.91 12/30/18 12:31: Puncture Site Rrad, O2 Saturation 93.0 L, ABG pH 7.411, ABG pCO2 38.0, ABG pO2 65.0 L, ABG HCO3 24.1, ABG Total CO2 25, ABG Base Excess 0, Kar Test +, FiO2 % 21.0 ASSESSMENT: Please see below. 1. Bronchitis 2. COPD Improved 3. Hemoptysis seems to have resolved 4. Dysphasia improved. PLAN: 1. Continue the same management with steroids, NEBS and Protonix. Plan and coordination of the patient's care discussed in the presence of Architectural Model Maker and nurse. CONDITION: Stable SCRIBED BY: Michael THOMPSON scribed while in presence of service performed by Dr. LUCILA ZHAO on 12/31/18 ([id number])
[2018-12-31] MEDS: SACUBITRIL PO SCH ×2 (11:05→20:25)
[2018-12-31] MEDS: VALSARTAN PO SCH ×2 (11:05→20:25)
--- NOTE | 2018-12-31 14:19 | HP ---
DATE OF SERVICE: 12/30/18 HISTORY OF PRESENT ILLNESS: This is an 83-year-old male with complaint of cough, congestion, hemoptysis, lot less, shortness of breath with exertion, dysphagia, water comes up, food ok at times. Diarrhea 5 to 8 times a day. No CHF symptoms, no CAD symptoms. He is retaining fluid. Unable to eat times two days. PAST MEDICAL HISTORY: Atrial fibrillation on Coumadin Dilated hypertrophic myopathy CHF Hypertension Left ventricular hypertrophy Leg edema CVA, 2008 HX pneumonia Left sciatica CKD, Stage [address] Denise Depression/anxiety Alzheimer's type dementia HX falls Left thumb fracture by history PAST SURGICAL HISTORY: Hemorrhoid surgery, 2019 Right shoulder surgery Cholecystectomy REVIEW OF SYSTEMS: CONSTITUTIONAL: Fatigue and weakness. No fever. HEENT: No sinus drainage, no sore throat. RESPIRATORY: Cough and hemoptysis. CARDIOVASCULAR: Positive for shortness of breath with exertion. No atypical chest pain for coronary artery disease. No angina, CHF symptoms, palpitations. GASTROINTESTINAL: No melena or abdominal pain. No GERD. GENITOURINARY: No hematuria, no prostatism, no polyuria. PROCUREMENT CLERK: No blackout, no dizziness, no headache, no double vision. MUSCULOSKELETAL: Osteoarthritis pain. ENDOCRINE: Positive for weight gain. SKIN: Not dry, no rash. PSYCHIATRIC: Not anxious, no depression, no suicidal thoughts, no homicidal thoughts. SOCIAL HISTORY: The patient is . Nonsmoker No alcohol use. FAMILY HISTORY: MEDICATIONS: (HOME) Lasix 40 mg one tablet p.o. once daily Potassium Chloride 20 mEq one tablet p.o. once daily with food Warfarin 4 mg tablet one p.o. times one per day Entresto 49-51 mg one tablet p.o. two times per day Diltiazem one tablet p.o. two times per day Aricept 10 mg one p.o once daily in the evening Namenda XR 28 mg capsule one p.o. once daily Fenofibrate 160 mg one tablet p.o. once daily Antivert 25 mg one tablet p.o. three times per day p.r.n. Lexapro 20 mg one tablet p.o. once daily Aspirin 81 mg p.o. once daily ALLERGIES: SHELLFISH DERIVED PHYSICAL EXAMINATION: V/S: Pulse 100, BP 100/54, 02 sat 96%. Weight 235.6 lbs, Height 5'9". BMI 34.8. GENERAL APPEARANCE: Oriented times three. HEENT: Normal. NECK: No JVP, no bruits. RESPIRATORY: Decreased breath sounds with creps bilaterally. CARDIOVASCULAR: S1, S2, no S3, no murmurs. No cyanosis, clubbing. No ascites. GI/ABDOMEN: No tenderness. Bowel sounds are active. EXTREMITIES: Trace edema, pulses +1, equal. PROCUREMENT CLERK: Deep tendon reflexes, sensory, motor and gait all normal. RECTAL/PROSTATE: Colonoscopy 1997 - Dr. Gutierrez refused repeat. LABS: ABGs on room air - pH 7.411, pc02 38, p02 65, base excess of 0, bicarb 24.1, TC02 25, 02 sat 93, free T4 1.18, sodium 138, potassium 4.3, BUN 27, creatinine 1.27, glucose 135, GFR 54, AST 26, ALT 23, BNP 1800, total protein 6.0, albumin 3.6, INR 1.9, white count 7.0, hemoglobin 11.4, hematocrit 40.4, platelets 229. Stool is negative for Campylobacter. Chest x-ray shows mild cardiomegaly with no acute process. ASSESSMENT: 1. ACUTE PNEUMONITIS INTERSTITIAL WITH BRONCHITIS 2. DYSPHAGIA 3. HEMOPTYSIS 4. HEMORRHOIDS 5. CHF 6. POLYCYTHEMIA, DR. DENISE 7. HISTORY RIGHT LOWER LOBE PNEUMONIA 8. [place] ATRIAL FIBRILLATION ON COUMADIN 9. RENAL CYST ULTRASOUND 02/27 DR. PRICE 10. RIGHT LOWER LOBE INFILTRATION 11. ANXIETY/DEPRESSION 12. HYPERTENSION/LVH 13. CVA 2007, DR. REIS 14. SCIATICA 15. CHRONIC KIDNEY DISEASE, STAGE 3 16. DYSLIPIDEMIA 17. ALZHEIMER'S DEMENTIA 18. HISTORY OF FALLS 19. HISTORY OF FRACTURE LEFT THUMB PLAN: 1. Continue all medications 2. Admit with routine telemetry orders 3. ABG now 4. DNR 5. Daily INR 6. D/C p.o. Lasix 7. Solu-Cortef 125 mg IV now and 6 hourly 8. Protonix 40 mg IV now and 12 hourly 9. BNP, T4 and TSH 10. IV Lasix 20 mg now and q.a.m. 11. Stool for C & S and C. Diff 12. Oxygen 2L/cannula/min 13. Xopenex nebs q.i.d. 14. Levaquin 500 mg IV PB. 24 hours TIME SPENT: More than 70 minutes. MTDD
[2018-12-31] MEDS ORDERED: COUMADIN PO SCH (17:00)
[2018-12-31] MEDS: REQUIP PO SCH (20:17)
[2018-12-31] MEDS: TRIGLIDE PO SCH (20:18)
[2019-01-01] MEDS: XOPENEX 1.25 MG NEB SCH ×2 (05:10→11:08)
[2019-01-01 05:31] VITALS: BP 142/85; TEMP 97.3
[2019-01-01] MEDS: LASIX IVP SCH (05:59)
[2019-01-01] MEDS: SOLU-CORTEF 250 MG IVP SCH (05:59)
[2019-01-01] MEDS ORDERED: PREDNISONE PO SCH (08:00)
[2019-01-01] MEDS ORDERED: LEVAQUIN PO SCH (08:30)
[2019-01-01] MEDS: PROTONIX IV IVP SCH (08:47)
[2019-01-01] MEDS ORDERED: CARDIZEM PO SCH ×2 (09:00)
--- NOTE | 2019-01-01 09:28 | PCM.PROG ---
Attending Provider: ATTENDING PROVIDER: Dr. LUCILA ZHAO DATE OF SERVICE: 01/01/19 SUBJECTIVE: This 83 year old WHITE/ M was hospitalized 12/30/18 with bronchitis, cough, congestion and dysphasia. The patient is on Levaquin and steroids. The patient florentino not have any symptoms of CHF or coronary insufficiency. No fever or chills. He has a lot of secretions in the throat from not being able to swallow probably. REVIEW OF SYSTEMS: CONSTITUTIONAL: No night sweats. No fatigue, malaise, lethargy. No fever or chills. HEENT: Eyes: No visual changes. No eye pain. No eye discharge. ENT: No runny nose. No epistaxis. No sinus pain. No odynophagia. No congestion. RESPIRATORY: No cough, no congestion. No hemoptysis. No shortness of breath. CARDIOVASCULAR: No angina symptoms. No CHF symptoms. No atypical chest pain for CAD. No palpitations. No orthopnea.. GASTROINTESTINAL: No abdominal pain. No nausea or vomiting. No diarrhea or constipation. No hematemesis. No hematochezia. GENITOURINARY: No urgency. No frequency. No dysuria. No hematuria. No obstructive symptoms. No discharge. No pain. No significant abnormal bleeding. MUSCULOSKELETAL: No musculoskeletal pain; no joint swelling. NEUROLOGICAL: Awake, alert, oriented to time, place and person. No headache. No neck pain. No syncope. No seizures. No dizziness. PSYCHIATRIC: Not anxious. No depression. No suicidal thoughts. No homicidal thoughts. SKIN: No rash. No lesions. No wounds. ENDOCRINE: No unexplained weight loss. No weight gain. HEMATOLOGIC/LYMPHATIC: No anemia. No purpura. No petechiae. No prolonged or excessive bleeding. No palpable lymph nodes. PHYSICAL EXAMINATION: GENERAL: The patient is awake, alert and oriented, sitting in bed in no distress. VITAL SIGNS: Temperature 97.3 F, Pulse 100, Respiratory Rate 24, BP 142/85, Pulse Ox 100% HEENT: Head normocephalic, atraumatic. Eyes: Extraocular muscles are intact. Pupils are equal, round and reactive to light and accommodation. Ears: No lesions. Nose appeared normal. Throat: No exudate or erythema. NECK: Supple. No JVD, no carotid bruit. No lymphadenopathy or thyromegaly. LUNGS: Decreased breath sounds bilaterally. Dry creps. Clear to auscultation. Percussion note normal. Chest symmetrical. HEART: S1, S2, no S3. No murmurs. No cyanosis or clubbing. No ascites. Pulses: Dorsalis pedis and posterior tibial pulses +1 to +2 both sides. ABDOMEN: Soft. Non-tender. Bowel sounds active. No CVA tenderness. No mass felt. EXTREMITIES: No edema. Full range of motion of all extremities, equal. NEUROLOGIC: No focal deficit. Cranial nerves II through XII are grossly intact. No headache, no double vision or headache. SKIN: Warm and dry. Intact. Turgor-normal. LYMPHATIC: No palpable lymph nodes/no lymphedema. MUSCULOSKELETAL: Normal joints with no swelling. Muscle tone is normal. LAB REVIEW: 01/01/19 04:45 01/01/19 04:45 01/01/19 04:45: WBC 9.40, RBC 5.99, Hgb 12.0 L, Hct 42.6, MCV 71.1 L, MCH 20.0 L , MCHC 28.2 L, RDW Coeff of Lynda 20.4 H, Plt Count 184, Immature Gran % (Auto) 0.5, Neut % (Auto) 87.7, Lymph % (Auto) 4.5 L, [place] % (Auto) 7.1, Eos % (Auto) 0.1, Baso % (Auto) 0.1, Immature Gran # (Auto) 0.1, Neut # (Auto) 8.2 H, Lymph # (Auto) 0.4 L, [place] # (Auto) 0.7, Eos # (Auto) 0.0, Baso # (Auto) 0.0, Clumped Platelets , Hypochromasia 1+, Anisocytosis 1+, Spherocytes 1+, Ovalocytes 1+ 01/01/19 04:45: Sodium 139.5, Potassium 3.83, Chloride 104.2, Carbon Dioxide 24.8, Anion Gap 14.33, BUN 27.0 H, Creatinine 1.02, Estimated GFR (MDRD) 70.00, BUN/Creatinine Ratio 26.47, Glucose 125.3 H, Calcium 8.98, Total Bilirubin 0.82 , AST 29.7, ALT 20.7, Alkaline Phosphatase 58.5, Total Protein 6.11 L, Albumin 3.59, Globulin 2.52, Albumin/Globulin Ratio 1.42 01/01/19 04:45: PT 14.7 H, INR 1.49 ASSESSMENT: Please see below. 1. Bronchitis seems to be under control 2. Swallowing is better, eating better, talking plainly 3. No emotional problems. PLAN: 1. Discontinue Solu-Cortef 2. Levaquin PO daily 3. Upper GI with Barium Swallow 4. Increase Cardizem 90mg PO twice a day Plan and coordination of the patient's care discussed in the presence of Managed Care Liaison and nurse. CONDITION: Stable SCRIBED BY: Michael THOMPSON scribed while in presence of service performed by Dr. LUCILA ZHAO on 01/01/19 ([id number])
--- NOTE | 2019-01-01 10:26 | DI ---
EXAM: Single contrast upper GI History: Dysphagia. Technique: Patient was given oral barium multiple spot films of the esophagus, gastroesophageal junc tion, stomach and duodenum were obtained in multiple projections. Findings: The course and caliber of the esophagus is within normal limits. No mucosal lesions or fi lling defects identified. Multiple episodes of esophageal spasm were identified. The gastroesophage al junction is patent. Tiny inconsistent hiatal hernia. Large amount of gastroesophageal reflux was seen. The course and caliber of the stomach is within normal limits. No maricarmen gastric ulcerations or polyps identified. The course and caliber of the duodenum is within normal limits. No wall thick ening of the duodenum. No gastric outlet obstruction. No extravasation of contrast material. Impression: 1. Diffuse esophageal spasm. 2. Tiny inconsistent hiatal hernia. 3. Gastroesophageal reflux
[2019-01-01] MEDS: VALSARTAN PO SCH (10:34)
[2019-01-01] MEDS: SACUBITRIL PO SCH (10:34)
[2019-01-01] MEDS: CRESTOR PO SCH (10:35)
[2019-01-01] MEDS: ASPIRIN EC PO SCH (10:36)
[2019-01-01] MEDS: NAMENDA PO SCH (10:37)
[2019-01-01] MEDS: K-DUR PO SCH (10:38)
[2019-01-01] MEDS: ARICEPT PO SCH (10:39)
--- NOTE | 2019-01-01 14:32 | CM.DICTOOL ---
ADMISSION: 12/30/18 11:36 DISCHARGE: JANUARY 01, 2019 DATE OF SERVICE: 01/01/19 FINAL DIAGNOSIS ACUTE BRONCHITIS DYSPHAGIA PNEUMONITIS GERD ESOPHAGEAL SPASM PER UGI HYPERTENSION LVH DILATED HYPERTROPHIC CARDIOMYOPATHY PER ECHO 2018 NEW ONSET ATRIAL FIB, ON COUMADIN CVA, 2007 CHRONIC KIDNEY DISEASE, STAGE 3 DYSLIPIDEMIA ALZHEIMER'S DEMENTIA CHF ANXIETY DEPRESSION POLYCYTHEMIA, DR. ANDERSEN HEMORRHOID SURGERY, 2019 RIGHT SHOULDER SURGERY CHOLECYSTECTOMY LAST VITALS Temp Pulse Resp BP Pulse Ox 97.3 F L 100 H 24 142/85 H 100 01/01/19 05:27 01/01/19 05:27 01/01/19 05:27 01/01/19 05:27 01/01/19 05:27 TAKE THESE MEDICATIONS AT HOME Aspirin (Aspirin Ec) 81 mg PO DAILYWM [facility] Last Admin: 01/01/19 10:36 Dose: 81 mg Diltiazem HCl (Cardizem) 90 mg PO BID [facility] Last Admin: 01/01/19 10:37 Dose: 90 mg Donepezil HCl (Aricept) 10 mg PO DAILY [facility] Last Admin: 01/01/19 10:39 Dose: 10 mg Fenofibrate (Triglide) 160 mg PO BEDTIME [facility] Last Admin: 12/31/18 20:18 Dose: 160 mg Furosemide (Lasix) 20 mg PO QDAC [facility] Last Admin: 01/01/19 05:59 Dose: 20 mg Levofloxacin (Levaquin) 500 mg PO QDAC [facility] Stop: 01/04/19 08:29 Last Admin: 01/01/19 10:34 Dose: 500 mg Memantine (Namenda) 28 mg PO AT BEDTIME [facility] Last Admin: 01/01/19 Non-Formulary Medication (Sacubitril/Valsartan [Entresto 49 Mg-51 Mg Tablet]) 1 each PO BID [facility] Last Admin: 01/01/19 10:34 Dose: 1 each Pantoprazole (Protonix ) 40 mg PO BID [facility] FOR 10 DAYS, THEN DAILY Last Admin: 01/01/19 08:47 Dose: 40 mg Potassium Chloride (K-Dur) 20 meq PO DAILYWM [facility] Last Admin: 01/01/19 10:38 Dose: 20 meq Prednisone (Prednisone) 20 mg PO DAILYWM [facility] Last Admin: 01/01/19 10:37 Dose: 20 mg Ropinirole HCl (Requip) 0.5 mg PO BEDTIME [facility] Last Admin: 12/31/18 20:17 Dose: 0.5 mg Rosuvastatin Calcium (Crestor) 10 mg PO DAILY [facility] Last Admin: 01/01/19 10:35 Dose: 10 mg Warfarin Sodium (Coumadin) 3 mg PO 1700 [facility] Last Admin: 12/31/18 17:05 Dose: 3 mg Carafate 1 gram PO TID ALLERGIES shellfish derived Adverse Reaction (Verified 09/16/18 15:14) DISCONTINUED MEDICATIONS CARDIZEM 60 MG BID NEW PRESCRIPTIONS: PROTONIX 40 MG BID FOR 10 DAYS, THEN DAILY CARAFATE 1 GRAM BEFORE MEALS PREDNISONE 20 MG DAILY FOR LEVAQUIN 500 MG DAILY FOR CARDIZEM 90 MG BID SMOKING: NOT APPLICABLE DISEASE SPECIFIC EDUCATION: GERD WEIGHT LOSS MEDICATIONS APPOINTMENT USE OF ORAL STEROIDS AND RISK OF GI UPSET, BONE DEMINERALIZATION LAB REVIEW: 01/01/19 04:45 01/01/19 04:45 01/01/19 04:45: WBC 9.40, RBC 5.99, Hgb 12.0 L, Hct 42.6, MCV 71.1 L, MCH 20.0 L , MCHC 28.2 L, RDW Coeff of Lynda 20.4 H, Plt Count 184, Immature Gran % (Auto) 0.5, Neut % (Auto) 87.7, Lymph % (Auto) 4.5 L, [place] % (Auto) 7.1, Eos % (Auto) 0.1, Baso % (Auto) 0.1, Immature Gran # (Auto) 0.1, Neut # (Auto) 8.2 H, Lymph # (Auto) 0.4 L, [place] # (Auto) 0.7, Eos # (Auto) 0.0, Baso # (Auto) 0.0, Clumped Platelets , Hypochromasia 1+, Anisocytosis 1+, Spherocytes 1+, Ovalocytes 1+ 01/01/19 04:45: Sodium 139.5, Potassium 3.83, Chloride 104.2, Carbon Dioxide 24.8, Anion Gap 14.33, BUN 27.0 H, Creatinine 1.02, Estimated GFR (MDRD) 70.00, BUN/Creatinine Ratio 26.47, Glucose 125.3 H, Calcium 8.98, Total Bilirubin 0.82 , AST 29.7, ALT 20.7, Alkaline Phosphatase 58.5, Total Protein 6.11 L, Albumin 3.59, Globulin 2.52, Albumin/Globulin Ratio 1.42 01/01/19 04:45: PT 14.7 H, INR 1.49 PLAN: DISCHARGE HOME DIET: REGULAR TOLERATED REMAIN SITTING FOR AT LEAST 30 MINUTES AFTER EATING ACTIVITY: RESUME TOLERATED AN APPOINTMENT IS SCHEDULED WITH DR. ZHAO/FAISAL BACON APRN ON December AT 3 PM CODE STATUS: DNR MR. CARABALLO IS ALERT AND ORIENTED X 3. MR. CARABALLO LIVES AT HOME WITH HIS SPOUSE, JASON. SHE IS AWARE AND AGREEABLE TO DISCHARGE PLANS FOR TODAY. HE IS FORGETFUL AT TIMES, BUT IS EASILY REORIENTED. HE IS ANXIOUS, BUT PLEASANT AND CHEERFUL. HE IS INDEPENDENT WITH ACTIVITIES OF DAILY LIVING. HE IS ABLE TO FEED HIMSELF AND CONSUMES 100% OF MEALS WITHOUT DIFFICULTY. HE TRANSFERS FROM THE BED TO THE CHAIR WITHOUT ASSISTANCE. HE IS AMBULATORY IN THE ROOM AND HALLWAY WITH USE OF HIS WALKING CANE. HE IS CONTINENT OF BLADDER AND BOWEL. SKIN TURGOR IS GOOD. SKIN IS FREE OF DECUBITUS ULCERS. LUCILA ZHAO MD
--- NOTE | 2019-01-02 12:46 | DS ---
DATE OF SERVICE: 01/01/19 FINAL DIAGNOSIS: ACUTE BRONCHITIS DYSPHAGIA PNEUMONITIS GERD ESOPHAGEAL SPASM PER UGI HYPERTENSION LVH DILATED HYPERTROPHIC CARDIOMYOPATHY PER ECHO 2018 NEW ONSET ATRIAL FIB, ON COUMADIN CVA, 2007 CHRONIC KIDNEY DISEASE, STAGE 3 DYSLIPIDEMIA ALZHEIMER'S DEMENTIA CHF ANXIETY DEPRESSION POLYCYTHEMIA, DR. ANDERSEN HEMORRHOID SURGERY, 2019 RIGHT SHOULDER SURGERY CHOLECYSTECTOMY LAST VITALS Temp Pulse Resp BP Pulse Ox 97.3 F L 100 H 24 142/85 H 100 01/01/19 05:27 01/01/19 05:27 01/01/19 05:27 01/01/19 05:27 01/01/19 05:27 DISCHARGE INSTRUCTIONS: DISCHARGE HOME. AN APPOINTMENT IS SCHEDULED WITH DR. ZHAO/FAISAL BACON APRN ON December AT 3 PM. CODE STATUS: DNR TAKE THESE MEDICATIONS AT HOME: Aspirin (Aspirin Ec) 81 mg PO DAILYWM [facility] Diltiazem HCl (Cardizem) 90 mg PO BID [facility] Donepezil HCl (Aricept) 10 mg PO DAILY [facility] Fenofibrate (Triglide) 160 mg PO BEDTIME [facility] Furosemide (Lasix) 20 mg PO QDAC [facility] Levofloxacin (Levaquin) 500 mg PO QDAC [facility] Memantine (Namenda) 28 mg PO AT BEDTIME [facility] Non-Formulary Medication (Sacubitril/Valsartan [Entresto 49 Mg-51 Mg Tablet]) 1 each PO BID [facility] Pantoprazole (Protonix ) 40 mg PO BID [facility] FOR 10 DAYS, THEN DAILY Potassium Chloride (K-Dur) 20 meq PO DAILYWM [facility] Prednisone (Prednisone) 20 mg PO DAILYWM [facility] Ropinirole HCl (Requip) 0.5 mg PO BEDTIME [facility] Rosuvastatin Calcium (Crestor) 10 mg PO DAILY [facility] Warfarin Sodium (Coumadin) 3 mg PO 1700 [facility] Carafate 1 gram PO TID ALLERGIES: shellfish derived Adverse Reaction (Verified 09/16/18 15:14) DISCONTINUED MEDICATIONS: CARDIZEM 60 MG BID NEW PRESCRIPTIONS: PROTONIX 40 MG BID FOR 10 DAYS, THEN DAILY CARAFATE 1 GRAM BEFORE MEALS PREDNISONE 20 MG DAILY FOR LEVAQUIN 500 MG DAILY FOR CARDIZEM 90 MG BID SMOKING: NOT APPLICABLE DISEASE SPECIFIC EDUCATION: GERD WEIGHT LOSS MEDICATIONS APPOINTMENT USE OF ORAL STEROIDS AND RISK OF GI UPSET, BONE DEMINERALIZATION DIET: REGULAR TOLERATED REMAIN SITTING FOR AT LEAST 30 MINUTES AFTER EATING ACTIVITY: RESUME TOLERATED HOSPITAL COURSE: Teofilo Liu was hospitalized with cough, congestion and inability to swallow. The patient was emotionally upset and crying. The patient was treated with IV steroids, NEBS treatment and was given IV Lasix and Protonix. The patient's condition improved remarkably within 2 days. The patient was up and about talking normally with less secretion in his mouth. Swallowing was much better. The upper GI with Barium swallow showed diffused esophageal spasm. The patient was put on Protonix and Carafate. The patient also has increase in his Cardizem from 60mg to 90mg because of borderline sinus tachycardia. The patient is on Entresto and advised to continue the rest of the medication. His echo showed LVH with hypokinetic septal wall with ejection fraction of 35% average. Condition at the time of discharge stable. The patient is advised to cut down on salt. Gastroesophageal reflux disease discussed with how to prevent it. CONDITION: Stable. TIME SPENT: More than 60 minutes. MTDD
--- NOTE | 2019-01-02 12:47 | PN ---
12/30/18: Level 5 12/31/18: Intermediate 01/01/19: D as in discharge MTDD
--- NOTE | 2019-01-03 09:48 | ECHO2D ---
Date of Exam: 01/01/2019 Ordering Physician: DR. ZHAO Room #: 116 Reason for Echo: SHORTNESS OF BREATH, LEFT VENTRICULAR HYPERTROPHY M-Mode Normal Adult Results LV Dimensions Normal Adult Results AoV Opening excursions >1.6 >1.6 LVEDD-base- 3.5-5.8 5.4 Ao root dimensions 2.0-3.7 3.6 LVESD-base- 3.1-4.6 L. Atrium dimensions 1.9-3.8 5.8 Post. Wall thickness 0.8-1.1 1.6 IV septum (thickness) 0.7-1.2 1.6 Post. Wall excursion 0.72-1.3 0.6 Septal motion 0.3 Systolic motion R. Ventricular cavity 1.5-2.0 NORMAL LVEF 60% 34% Paradoxical septal wall motion NORMAL 2-D : ENLARGED LEFT ATRIAL CAVITY - NORMAL VALVES - HYPOKINETIC LEFT VENTRICLE ESPECIALLY SEPTAL WALL-NO EFFUSION - NO THROMBUS M-MODE: MV: NORMAL AV: NORMAL TV: NORMAL PV: CHAMBER SIZE: ENLARGED LEFT ATRIAL CAVITY WALL MOTION: HYPOKINETIC LEFT VENTRICLE PERICARDIUM: NORMAL INTERPRETATION: 1. MODERATE LEFT VENTRICULAR HYPERTROPHY 2. ENLARGED LEFT ATRIAL CAVITY 3. HYPOKINETIC LEFT VENTRICLE ESPECIALLY SEPTAL WALL WITH EJECTION FRACTION 34% MTDD
== END 2019-01-01 03:05 | disposition home or self-care (01) | DRG 202 ==
LOC: MEDSURG B 11:36
PROVIDERS: ADMIT Internal Medicine; ATTEND Internal Medicine
DX: J20.9 Acute bronchitis, unspecified (principal); J18.9 Pneumonia, unspecified organism; I50.1 Left ventricular failure, unspecified; I42.2 Other hypertrophic cardiomyopathy; I10 Essential (primary) hypertension; I48.91 Unspecified atrial fibrillation; I50.9 Heart failure, unspecified; J44.9 Chronic obstructive pulmonary disease, unspecified; K21.9 Gastro-esophageal reflux disease without esophagitis; K22.4 Dyskinesia of esophagus; N18.3 Chronic kidney disease, stage 3 (moderate); E78.5 Hyperlipidemia, unspecified; G30.9 Alzheimer's disease, unspecified; F02.80 Dementia in other diseases classified elsewhere, unspecified severity, without behavioral disturbance, psychotic disturbance, mood disturbance, and anxiety; F41.9 Anxiety disorder, unspecified; F32.9 Major depressive disorder, single episode, unspecified; Z79.01 Long term (current) use of anticoagulants; Z86.73 Personal history of transient ischemic attack (TIA), and cerebral infarction without residual deficits
CPT/HCPCS: 36415; 80053; 81001; 82550; 82803; 83880; 84439; 84443; 84484; 85008; 85025; 85610; 87015; 87045; 87899; 93005; 93010; 94640

== ENCOUNTER 2019-06-16 16:38 | Observation (INO) ==
[2019-06-16] MEDS ORDERED: NORCO 10-325 PO STA (17:47)
--- NOTE | 2019-06-16 17:54 | ED.PDOC ---
General ED Provider: Dr. AZAEL ALMARAZ Chief Complaint: Abdominal Pain Stated Complaint: left hip pain , cough lower abdominal pain, flu like symptoms Time Seen by Physician: 16:42 Mode of Arrival: Walk-In Information Source: Patient Primary Care Provider: LUCILA ZHAO Nursing and Triage Documentation Reviewed and Agree: Yes Does patient meet sepsis criteria?: No If yes, has appropriate treatment been initiated?: No System Inflammatory Response Syndrome: Not Applicable Sepsis Protocol: For patient's 13 years and over: Temp is 96.8 and below OR 101 and greater Pulse >90 BPM Resp >20/minute Acutely Altered Mental Status Are patient's symptoms suggestive of a new infection, such as: -Pneumonia -Skin, Soft Tissue -Endocarditis -UTI -Bone, Joint Infection -Implantable Device -Acute Abdominal Infection -Wound Infection -Meningitis -Blood Stream Catheter Infection -Unknown GI Complaint Exam Abdominal Pain Complaint/Exam Onset: Gradual Duration: 2 days acute left hip michelle and cough and flu like symptoms x 2 days no fall Symptoms Are: Resolved Timing: Intermittent Initial Severity: Mild Current Severity: Mild (hip pain) Location of Pain: Diffuse Character: Reports Dull Aggravating: Reports Movement (left hip) Alleviating: Reports Rest, Position and Spontaneous resolution Associated Signs and Symptoms: Reports Cough and Decreased appetite; Denies Diaphoresis, Fever, Chest pain, Dizziness, Back pain, Constipation, Blood in stool, Dysuria, Urinary frequency, Decreased urine output, Discharge, Nausea, Vomiting, Diarrhea and Decreased activity Review of Systems Review Of Systems Constitutional: Reports No symptoms All Other Systems: Reviewed and Negative [facility] Medical History (Updated 06/16/19 @ 18:25 by AZAEL ALMARAZ MD) Congestive heart failure Social History Smoking and tobacco status: Never smoker History of recent travel: No Physical Exam Physical Exam Appearance: Well-appearing, No pain distress and Well-nourished Eyes: BRADLEY, EOMI and Conjunctiva clear ENT: Ears normal, Nose normal and Oropharynx normal Respiratory: Airway patent, Breath sounds clear, Breath sounds equal and Respirations nonlabored Cardiovascular: RRR, Pulses normal, No rub and No murmur GI/: Soft, Nontender, No masses, Bowel sounds normal and No Organomegaly Musculoskeletal: Limited ROM (left hip) Skin: Warm, Dry and Normal color Neurological: Sensation intact, Motor intact, Reflexes intact, Cranial nerves intact, Alert and Oriented Psychiatric: Affect appropriate and Mood appropriate Critical Care Note Critical Care Note Total Time (mins): 0 Course Course Hematology/Chemistry: 06/16/19 17:35 06/16/19 17:35 Orders, Labs, Meds: Lab Review 06/16/19 06/16/19 06/16/19 17:10 17:10 17:35 WBC 5.30 RBC 5.86 Hgb 11.5 L Hct 41.2 L MCV 70.3 L MCH 19.6 L MCHC 27.9 L RDW Coeff of Lynda 20.7 H Plt Count 215 Immature Gran % (Auto) 0.4 Neut % (Auto) 57.0 Lymph % (Auto) 23.0 [place] % (Auto) 14.3 H Eos % (Auto) 3.8 Baso % (Auto) 1.5 Immature Gran # (Auto) 0.0 Neut # (Auto) 3.0 Lymph # (Auto) 1.2 [place] # (Auto) 0.8 Eos # (Auto) 0.2 Baso # (Auto) 0.1 Plt Morphology Comment Occ large Hypochromasia 1+ Anisocytosis 1+ Microcytosis 1+ Ovalocytes Sodium Potassium Chloride Carbon Dioxide Anion Gap BUN Creatinine Estimated GFR (MDRD) BUN/Creatinine Ratio Glucose Lactic Acid Calcium Total Bilirubin AST ALT Alkaline Phosphatase Total Creatine Kinase Troponin I Total Protein Albumin Globulin Albumin/Globulin Ratio Urine Color Yellow Urine Clarity Clear Urine pH 5.5 Ur Specific [place] >=1.030 Urine Protein 2+ Urine Glucose (UA) Negative Urine Ketones Negative Urine Blood Negative Urine Nitrite Negative Urine Bilirubin Negative Urine Urobilinogen 1.0 Ur Leukocyte Esterase Negative Urine Microscopic WBC 0-2 Ur Squamous Epith Cells 0-2 Urine Bacteria Trace Hyaline Casts 2-5 Urine Mucus 2+ Influ A Molecular Assay Negative by naat Influ B Molecular Assay Negative by naat 06/16/19 06/16/19 17:35 17:35 WBC RBC Hgb Hct MCV MCH MCHC RDW Coeff of Lynda Plt Count Immature Gran % (Auto) Neut % (Auto) Lymph % (Auto) [place] % (Auto) Eos % (Auto) Baso % (Auto) Immature Gran # (Auto) Neut # (Auto) Lymph # (Auto) [place] # (Auto) Eos # (Auto) Baso # (Auto) Plt Morphology Comment Hypochromasia Anisocytosis Microcytosis Ovalocytes Sodium 139.8 Potassium 4.29 Chloride 108.2 H Carbon Dioxide 25.5 Anion Gap 10.39 BUN 30.4 H Creatinine 1.52 H Estimated GFR (MDRD) 44.00 BUN/Creatinine Ratio 20.00 Glucose 91.0 Lactic Acid 1.25 Calcium 9.49 Total Bilirubin 0.70 AST 29.7 ALT 15.0 Alkaline Phosphatase 52.2 L Total Creatine Kinase 65.4 Troponin I 0.013 Total Protein 6.67 Albumin 3.87 Globulin 2.80 Albumin/Globulin Ratio 1.38 Urine Color Urine Clarity Urine pH Ur Specific [place] Urine Protein Urine Glucose (UA) Urine Ketones Urine Blood Urine Nitrite Urine Bilirubin Urine Urobilinogen Ur Leukocyte Esterase Urine Microscopic WBC Ur Squamous Epith Cells Urine Bacteria Hyaline Casts Urine Mucus Influ A Molecular Assay Influ B Molecular Assay Orders Category Date Time Status EKG-(ED ONLY) Stat CARDIO 06/16/19 17:54 Ordered BLOOD CULTURE Stat LAB 06/16/19 17:25 Received CBC W/ AUTO DIFF Stat LAB 06/16/19 17:35 Completed COMPREHENSIVE METABOLIC PANEL Stat LAB 06/16/19 17:35 Completed CREATINE KINASE Stat LAB 06/16/19 17:35 Completed FLU A/B MOLECULAR Stat LAB 06/16/19 17:10 Completed LACTIC ACID Stat LAB 06/16/19 17:35 Completed MOLECULAR GROUP A STREP Stat LAB 06/16/19 18:08 Received PARTIAL THROMBOPLASTIN TIME Stat LAB 06/16/19 18:05 Received PT WITH INR Stat LAB 06/16/19 18:05 Received RBC MORPHOLOGY Stat LAB 06/16/19 17:35 Completed TROPONIN I Stat LAB 06/16/19 17:35 Completed URINALYSIS C & S IF INDICATED Stat LAB 06/16/19 17:10 Completed Ceftriaxone 1 gm Vial [Rocephin 1 gm Vial] MEDS 06/16/19 17:55 Discontinued 1 gm IM ONCE STA Hydrocodone Bit/Acetaminophen [[place] 10-325] MEDS 06/16/19 17:47 Discontinued 1 tab PO ONCE STA Lidocaine HCl/Pf [Lidocaine HCl 1% Sdv] MEDS 06/16/19 17:55 Discontinued 2.1 ml IM ONCE STA CT ABDOMEN/PELVIS WO CONTRAST Stat RADS 06/16/19 17:[address] CHEST W/O CONTRAST Stat RADS 06/16/19 17:48 Ordered Medications Discontinued Medications Generic Name Dose Route Start Last Admin Trade Name Freq PRN Reason Stop Dose Admin Hydrocodone Bitart/Acetaminophen 1 tab 06/16/19 17:47 06/16/19 17:59 [place] 10-325 PO 06/16/19 17:48 1 tab ONCE STA Administration Ceftriaxone Sodium 1 gm 06/16/19 17:55 06/16/19 18:18 Rocephin 1 Gm Vial IM 06/16/19 17:56 1 gm ONCE STA Administration Lidocaine HCl 2.1 ml 06/16/19 17:55 06/16/19 18:18 Lidocaine Hcl 1% Sdv IM 06/16/19 17:56 2.1 ml ONCE STA Administration Vital Signs: Temp Pulse Resp BP Pulse Ox 06/16/19 16:39 98.0 F 93 H 20 130/72 96 Discharge Plan Discharge Patient Disposition: ADMITTED INPATIENT Discharge Problem: Chronic hip pain, Cough, Bronchitis, Abdominal pain, A-fib Instructions: Acute Abdominal Pain (DC), Abdominal Pain (ED), Hip Pain (ED), Pelvic Pain (ED) Prescriptions: No Action donepezil 10 MG tablet 10 mg PO BEDTIME RF: 0 rosuvastatin [Crestor] 20 MG tablet 20 mg PO DAILY RF: 0 memantine [Namenda] 10 MG tablet 10 mg PO BID RF: 0 fenofibrate 160 MG tablet 160 mg PO BEDTIME RF: 0 potassium chloride [Klor-Con M20] 20 MEQ tablet,ER particles/crystals 20 meq PO DAILY Qty: 30 RF: 1 aspirin [Bon Chewable Aspirin] 81 MG tablet,chewable 81 mg PO DAILY RF: 0 warfarin [Coumadin] 3 MG tablet 2 mg PO 1700 RF: 0 diltiazem HCl 90 mg Tablet 90 mg PO BID RF: 0 furosemide 40 MG tablet 40 mg PO QDAC RF: 0 lorazepam [Ativan] 0.5 MG tablet 0.5 mg PO DIRECTED PRN (Reason: Anxiety) RF: 0 gabapentin [Neurontin] 300 MG capsule 300 mg PO DIRECTED PRN (Reason: pain) RF: 0 omeprazole 20 MG capsule,delayed release(DR/EC) 20 mg PO QDAC RF: 0 Fish Oil 1 EACH capsule 1 ea PO DAILY RF: 0 Entresto 1 EACH tablet 1 ea PO BID RF: 0 tramadol [Ultram] 50 MG tablet 50 mg PO Q6HR Qty: 14 RF: 0 ED Provider: AZAEL ALMARAZ Condition: Good
[2019-06-16] MEDS ORDERED: ROCEPHIN 1 GM VIAL IM STA (17:55)
[2019-06-16] MEDS ORDERED: LIDOCAINE HCL 1% SDV IM STA (17:55)
--- NOTE | 2019-06-16 17:56 | CT ---
Exam: CT of the abdomen and pelvis without contrast History: Abdominal pain Technique: [address] of the abdomen and pelvis without intravascular contrast FINDINGS: The lung bases are clear. No significant liver abnormality. The adrenals, pancreas and s pleen are unremarkable. The stomach and hiatus are unremarkable.Prior cholecystectomy. Kidneys and proximal collecting system are unremarkable. The appendix is normal. Bowel loops demonstrate normal caliber. No inflamatory change seen in the mesentery or retroperitoneum. Atherosclerotic calcifica tion of the aorta without aneurysm. Colonic diverticulosis of the sigmoid. No pelvic fat inflammation. Normal pelvic genitourinary stru ctures. No acute findings of the skeleton. Impression: 1. No inflammatory process, bowel or urinary obstruction is seen. 2. Colonic diverticulosis without diverticulitis.
[2019-06-16] MEDS ORDERED: MORPHINE 4 MG/ML VIAL IVP PRN (18:27)
[2019-06-16] MEDS ORDERED: ZOFRAN 4 MG/2 ML IVP PRN (18:31)
[2019-06-16] MEDS ORDERED: ATIVAN PO PRN (18:32)
[2019-06-16] MEDS ORDERED: NEURONTIN PO PRN (18:32)
[2019-06-16] MEDS: SODIUM CHLORIDE 1,000 ML IV SCH (18:40)
--- NOTE | 2019-06-16 19:46 | CT ---
Exam: CT of the chest without contrast History: Cough Technique: [address] of the chest without intravascular contrast FINDINGS: The lung windows show no nodules, masses or infiltrates. Crowding of vasculature and inte rstitium in the dependent lung bases. There is no pleural fluid or pneumothorax. Atherosclerotic ca lcification of the aorta and coronary arteries. No pathologic lymph node enlargement or abundance of mediastinum. No acute findings of the chest wall soft tissues or bony thorax. Multilevel thoracic ankylosis. Impression: 1. No acute findings of the chest
[2019-06-16] MEDS ORDERED: CARDIZEM PO SCH (21:00)
[2019-06-16 21:10] VITALS: BMI 32.9
[2019-06-16] MEDS ORDERED: ULTRAM PO PRN (21:22)
[2019-06-16] MEDS ORDERED: NAMENDA PO SCH (21:30)
[2019-06-16] MEDS ORDERED: ARICEPT PO SCH (21:30)
[2019-06-16] MEDS ORDERED: TRIGLIDE PO SCH (21:30)
[2019-06-16] MEDS ORDERED: ASPIRIN CHEWABLE PO SCH (21:30)
[2019-06-16] MEDS ORDERED: NEURONTIN PO SCH (21:30)
[2019-06-16] MEDS: SOLU-MEDROL 40 MG IVP SCH (22:05)
[2019-06-16] MEDS: DUONEB NEB SCH (23:15)
[2019-06-17] MEDS ORDERED: ULTRAM PO SCH
[2019-06-17] MEDS ORDERED: ATIVAN PO PRN (00:47)
[2019-06-17] MEDS: DUONEB NEB SCH ×4 (04:42→23:00)
[2019-06-17] MEDS: SODIUM CHLORIDE 1,000 ML IV SCH ×2 (05:43→21:47)
[2019-06-17] MEDS ORDERED: PRILOSEC PO SCH (06:30)
[2019-06-17] MEDS ORDERED: LASIX TAB PO SCH (06:30)
[2019-06-17] MEDS ORDERED: ATIVAN PO STA (08:46)
--- NOTE | 2019-06-17 08:49 | PCM.PROG ---
Attending Provider: ATTENDING PROVIDER: Dr. LUCILA ZHAO This patient is seen with Maria Teresa Arroyo, Nurse Practitioner. DATE OF SERVICE: 06/17/19 SUBJECTIVE: This 83 year old /WHITE M was hospitalized 06/16/19. The patient is sitting in chair resting comfortably. He has been coughing, short of breath with bloody sputum. The patient is anxious and is wanting to go home. REVIEW OF SYSTEMS: CONSTITUTIONAL: No night sweats. No fatigue, malaise, lethargy. No fever or ch ills. HEENT: Eyes: No visual changes. No eye pain. No eye discharge. ENT: No runny nose. No epistaxis. No sinus pain. No odynophagia. No congestion. RESPIRATORY: Cough and congestion. No hemoptysis. No shortness of breath. CARDIOVASCULAR: No angina symptoms. No CHF symptoms. No atypical chest pain for CAD. No palpitations. No orthopnea.. GASTROINTESTINAL: No abdominal pain. No nausea or vomiting. No diarrhea or constipation. No hematemesis. No hematochezia. GENITOURINARY: No urgency. No frequency. No dysuria. No hematuria. No obstructive symptoms. No discharge. No pain. No significant abnormal bleeding. MUSCULOSKELETAL: No musculoskeletal pain; no joint swelling. NEUROLOGICAL: Awake, alert, oriented to time, place and person. No headache. No neck pain. No syncope. No seizures. No dizziness. PSYCHIATRIC: Not anxious. No depression. No suicidal thoughts. No homicidal thoughts. SKIN: No rash. No lesions. No wounds. ENDOCRINE: No unexplained weight loss. No weight gain. HEMATOLOGIC/LYMPHATIC: No anemia. No purpura. No petechiae. No prolonged or excessive bleeding. No palpable lymph nodes. PHYSICAL EXAMINATION: GENERAL: The patient is awake, alert and oriented, lying/sitting in bed in no distress. VITAL SIGNS: Temperature 97.5 F, Pulse 80, Respiratory Rate 16, BP 129/76, Pulse Ox 99% HEENT: Head normocephalic, atraumatic. Eyes: Extraocular muscles are intact. Pupils are equal, round and reactive to light and accommodation. Ears: No lesions. Nose appeared normal. Throat: No exudate or erythema. NECK: Supple. No JVD, no carotid bruit. No lymphadenopathy or thyromegaly. LUNGS: Diminished breath sounds, rhonchi on right. Percussion note normal. Chest symmetrical. HEART: S1, S2, no S3. No murmurs. No cyanosis or clubbing. No ascites. Pulses: Dorsalis pedis and posterior tibial pulses +1 to +2 both sides. ABDOMEN: Soft. Non-tender. Bowel sounds active. No CVA tenderness. No mass felt. EXTREMITIES: Trace edema. Full range of motion of all extremities, equal. NEUROLOGIC: No focal deficit. Cranial nerves II through XII are grossly intact. No headache, no double vision or headache. SKIN: Not dry. Intact. Turgor-normal. LYMPHATIC: No palpable lymph nodes/no lymphedema. MUSCULOSKELETAL: Normal joints with no swelling. Muscle tone is normal. LAB REVIEW: 06/17/19 05:10 06/17/19 05:10 06/17/19 05:10: Sodium 141.3, Potassium 4.37, Chloride 105.1, Carbon Dioxide 25.3, Anion Gap 15.27, BUN 27.5 H, Creatinine 1.51 H, Estimated GFR (MDRD) 45.00, BUN/Creatinine Ratio 18.21, Glucose 165.7 H D, Calcium 9.50, Total Bilirubin 0.67, AST 27.6, ALT 18.2, Alkaline Phosphatase 51.7 L, Total Protein 7.32, Albumin 4.36, Globulin 2.96, Albumin/Globulin Ratio 1.47 06/17/19 05:10: WBC 3.70 L, RBC 6.25 H, Hgb 12.3 L, Hct 44.7, MCV 71.5 L, MCH 19.7 L, MCHC 27.5 L, RDW Coeff of Lynda 20.8 H, Plt Count 228, Immature Gran % (Auto) 0.3, Neut % (Auto) 75.4, Lymph % (Auto) 21.9, [place] % (Auto) 1.6, Eos % (Auto) 0.0, Baso % (Auto) 0.8, Immature Gran # (Auto) 0.0, Neut # (Auto) 2.8, Lymph # (Auto) 0.8, [place] # (Auto) 0.1 L, Eos # (Auto) 0.0, Baso # (Auto) 0.0, Hypochromasia 1+, Anisocytosis 1+, Ovalocytes 1+, [place] Cells 1+ 06/17/19 00:30: Total Creatine Kinase 74.6, Troponin I 0.016 06/16/19 18:05: PT 14.6 H, INR 1.53, APTT 28.7 06/16/19 17:35: Lactic Acid 1.25 06/16/19 17:35: Sodium 139.8, Potassium 4.29, Chloride 108.2 H, Carbon Dioxide 25.5, Anion Gap 10.39, BUN 30.4 H, Creatinine 1.52 H, Estimated GFR (MDRD) 44.00, BUN/Creatinine Ratio 20.00, Glucose 91.0, Calcium 9.49, Total Bilirubin 0.70, AST 29.7, ALT 15.0, Alkaline Phosphatase 52.2 L, Total Creatine Kinase 65.4, Troponin I 0.013, Total Protein 6.67, Albumin 3.87, Globulin 2.80, Albumin/Globulin Ratio 1.38 06/16/19 17:35: WBC 5.30, RBC 5.86, Hgb 11.5 L, Hct 41.2 L, MCV 70.3 L, MCH 19.6 L, MCHC 27.9 L, RDW Coeff of Lynda 20.7 H, Plt Count 215, Immature Gran % (Auto) 0.4, Neut % (Auto) 57.0, Lymph % (Auto) 23.0, [place] % (Auto) 14.3 H, Eos % (Auto) 3.8, Baso % (Auto) 1.5, Immature Gran # (Auto) 0.0, Neut # (Auto) 3.0, Lymph # (Auto) 1.2, [place] # (Auto) 0.8, Eos # (Auto) 0.2, Baso # (Auto) 0.1, Plt Morphology Comment Occ large, Hypochromasia 1+, Anisocytosis 1+, Microcytosis 1+, Ovalocytes 06/16/19 17:10: Influ A Molecular Assay Negative by naat, Influ B Molecular Assay Negative by naat 06/16/19 17:10: Urine Color Yellow, Urine Clarity Clear, Urine pH 5.5, Ur Specific [place] >=1.030, Urine Protein 2+, Urine Glucose (UA) Negative, Urine Ketones Negative, Urine Blood Negative, Urine Nitrite Negative, Urine Bilirubin Negative, Urine Urobilinogen 1.0, Ur Leukocyte Esterase Negative, Urine Microsc opic WBC 0-2, Ur Squamous Epith Cells 0-2, Urine Bacteria Trace, Hyaline Casts 2-5, Urine Mucus 2+ ASSESSMENT: Please see below. 1. Acute bronchitis. 2. Dehydration. 3. Chronic kidney disease, Stage 3. 4. Atrial fibrillation on Coumadin. 5. Dementia. PLAN: 1. Rocephin 1 gm daily. 2. Stop IV fluids. 3. Daily INR. Plan and coordination of the patient's care discussed in the presence of Student Outreach Coordinator and nurse. CONDITION: Stable SCRIBED BY: [facility] scribed while in presence of service performed by Dr. Zhao/Maria Teresa Arroyo APRN on 06/17/19 ([id number])
[2019-06-17] MEDS ORDERED: ENTRESTO 24 MG-26 MG TABLET PO SCH (09:00)
[2019-06-17] MEDS ORDERED: ULTRAM PO PRN (09:00)
[2019-06-17] MEDS ORDERED: ASPIRIN CHEWABLE PO SCH ×2 (09:00→21:00)
[2019-06-17] MEDS ORDERED: CARDIZEM PO SCH (09:00)
[2019-06-17] MEDS ORDERED: CRESTOR PO SCH ×2 (09:00)
[2019-06-17] MEDS: ROCEPHIN 1 GM/50 ML D5W 1 GM/50 ML BAG IV SCH (10:12)
[2019-06-17] MEDS: SOLU-MEDROL 40 MG IVP SCH ×2 (10:12→20:27)
[2019-06-17] MEDS: NEURONTIN PO SCH ×3 (12:47→20:33)
[2019-06-17] MEDS: NAMENDA PO SCH ×2 (12:48→20:32)
[2019-06-17] MEDS: SACUBITRIL VALSARTAN PO SCH ×2 (12:51→20:31)
[2019-06-17] MEDS: ATIVAN PO PRN ×2 (13:00→21:52)
[2019-06-17] MEDS ORDERED: COUMADIN PO SCH (17:00)
[2019-06-17] MEDS ORDERED: WARFARIN 2 MG PO SCH (17:00)
[2019-06-17] MEDS: NON-FORMULARY MEDICATION (Diltiazem Hcl [Diltiazem Hcl] 90 MG) PO SCH (20:31)
[2019-06-17] MEDS ORDERED: ARICEPT PO SCH (21:00)
[2019-06-17] MEDS ORDERED: TRIGLIDE PO SCH (21:00)
[2019-06-18] MEDS: SODIUM CHLORIDE 1,000 ML IV SCH (00:42)
[2019-06-18] MEDS: DUONEB NEB SCH ×2 (04:55→11:16)
[2019-06-18] MEDS ORDERED: PRILOSEC PO SCH (06:30)
[2019-06-18] MEDS ORDERED: LASIX TAB PO SCH (06:30)
[2019-06-18] MEDS: ROCEPHIN 1 GM/50 ML D5W 1 GM/50 ML BAG IV SCH (08:39)
[2019-06-18] MEDS: SOLU-MEDROL 40 MG IVP SCH (08:40)
[2019-06-18] MEDS: NON-FORMULARY MEDICATION (Diltiazem Hcl [Diltiazem Hcl] 90 MG) PO SCH (08:43)
[2019-06-18] MEDS: NAMENDA PO SCH (08:43)
[2019-06-18] MEDS: NEURONTIN PO SCH (08:44)
[2019-06-18] MEDS: SACUBITRIL VALSARTAN PO SCH (08:46)
[2019-06-18] MEDS ORDERED: ROSUVASTATIN 20 MG PO SCH (09:00)
--- NOTE | 2019-06-18 11:12 | CM.DICTOOL ---
ADMISSION: 06/16/19 18:27 DISCHARGE: JUNE 18, 2019 DATE OF SERVICE: 06/18/19 FINAL DIAGNOSIS ACUTE BRONCHITIS, LIKELY ALLERGY RELATED DEHYDRATION LEFT HIP PAIN ABDOMINAL PAIN ATRIAL FIBRILLATION (COUMADIN) DEMENTIA WITH BEHAVIORAL ISSUES CVA, 2007 CKD, STAGE 3 HYPERCHOLESTEROLEMIA DIVERTICULOSIS DILATED HYPERTROPHIC CARDIOMYOPATHY ECHOCARDIOGRAM: DEC, 2018 LVEF 34% MODERATE LVH ENLARGED LEFT ATRIAL CAVITY HEMORRHOID SURGERY CHOLECYSTECTOMY RIGHT SHOULDER SURGERY LAST VITALS Temp Pulse Resp BP Pulse Ox 97.5 F L 105 H 18 115/71 97 06/18/19 04:50 06/18/19 04:50 06/18/19 04:50 06/18/19 04:50 06/18/19 09:23 TAKE THESE MEDICATIONS AT HOME Albuterol/Ipratropium (Duoneb) 3 ml NEB RTQ6H [facility] Last Admin: 06/18/19 04:55 Dose: 3 ml Documented by: Aspirin (Aspirin Chewable) 81 mg PO BEDTIME [facility] Last Admin: 06/17/19 20:28 Dose: 81 mg Documented by: Donepezil HCl (Aricept) 10 mg PO BEDTIME [facility] Last Admin: 06/17/19 20:30 Dose: 10 mg Documented by: Fenofibrate (Triglide) 160 mg PO BEDTIME [facility] Last Admin: 06/17/19 20:33 Dose: 160 mg Documented by: Furosemide (Lasix Tab) 40 mg PO QDAC [facility] Last Admin: 06/18/19 05:56 Dose: 40 mg Documented by: Gabapentin (Neurontin) 300 mg PO TID [facility] Last Admin: 06/18/19 08:44 Dose: 300 mg Documented by: Lorazepam (Ativan) 0.5 mg PO DAILY PRN PRN Reason: Agitation Last Admin: 06/17/19 21:52 Dose: 0.5 mg Documented by: Memantine (Namenda) 10 mg PO BID [facility] Last Admin: 06/18/19 08:43 Dose: 10 mg Documented by: Non-Formulary Medication (Sacubitril-Valsartan 49-51 MG[Entresto]) 1 PO BID [facility] Last Admin: 06/18/19 08:46 Dose: 1 each Documented by: Non-Formulary Medication (Diltiazem Hcl [Diltiazem Hcl]) 90 mg PO BID [facility] Last Admin: 06/18/19 08:43 Dose: 90 mg Documented by: Non-Formulary Medication (Rosuvastatin [Crestor]) 20 mg PO DAILY [facility] Last Admin: 06/18/19 08:44 Dose: 20 mg Documented by: Non-Formulary Medication (Warfarin [Coumadin]) 2 mg PO QPM [facility] Last Admin: 06/17/19 17:10 Dose: 2 mg Documented by: Omeprazole (Prilosec) 20 mg PO QDAC [facility] Last Admin: 06/18/19 05:56 Dose: 20 mg Documented by: POTASSIUM 20 MEQ DAILY SCHEDULED LAST DOSE: Tramadol HCl (Ultram) 50 mg PO Q6HR PRN PRN Reason: Pain Last Admin: 06/17/19 15:40 Dose: 50 mg Documented by: TAMSULOSIN HCL 0.4 MG DAILY LAST ADMIN: ALLERGIES shellfish derived Adverse Reaction (Verified 06/16/19 16:44) DISCONTINUED MEDICATIONS NONE NEW PRESCRIPTIONS: KEFLEX 500 MG TID FOR 5 DAYS PREDNISONE 20 MG DAILY FOR 5 DAYS, THEN 10 MG DAILY FOR 5 DAYS SMOKING: NOT APPLICABLE DISEASE SPECIFIC EDUCATION: PRESCRIPTIONS USE OF ORAL STEROIDS AND RISK OF GI IRRITATION APPOINTMENT LAB REVIEW: 06/18/19 05:10 06/18/19 05:10 06/18/19 05:10: Sodium 139.5, Potassium 4.79, Chloride 105.8, Carbon Dioxide 26.1, Anion Gap 12.39, BUN 29.4 H, Creatinine 1.38 H, Estimated GFR (MDRD) 49.00, BUN/Creatinine Ratio 21.30, Glucose 145.6 H, Calcium 9.28, Total Bilirubin 0.54, AST 21.3, ALT 15.4, Alkaline Phosphatase 35.7 L, Total Protein 6.54, Albumin 3.91, Globulin 2.63, Albumin/Globulin Ratio 1.48 06/18/19 05:10: WBC 4.81, RBC 5.63, Hgb 11.0 L, Hct 39.8 L, MCV 70.7 L, MCH 19.5 L, MCHC 27.6 L, RDW Coeff of Lynda 20.2 H, Plt Count 215, Immature Gran % (Auto) 0.4, Neut % (Auto) 89.2, Lymph % (Auto) 7.7 L, [place] % (Auto) 2.5, Eos % (Auto) 0.0, Baso % (Auto) 0.2, Immature Gran # (Auto) 0.0, Neut # (Auto) 4.3, Lymph # (Auto) 0.4 L, [place] # (Auto) 0.1 L, Eos # (Auto) 0.0, Baso # (Auto) 0.0, Hypochromasia 1+, Anisocytosis 1+, Ovalocytes 1+ 06/18/19 05:10: PT 16.1 H, INR 1.69 IMAGE REVIEW: DISCHARGE HOME WITH SPOUSE DIET: TOLERATED ACTIVITY: GRADUALLY RESUME TOLERATED PLEASE KEEP THE SCHEDULED APPOINTMENT ON June AT 10:30 CONTINUE TO USE OXYGEN AT NIGHT AT 2 LITERS CONTINUE TO USE NEBULIZER TREATMENTS AT LEAST 3 TIMES DAILY CODE STATUS: DNR MR. CARABALLO IS ALERT TO PERSON, PLACE. HE IS DISORIENTED TO TIME. HE IS FORGETFUL, BUT COOPERATIVE. HE IS ANXIOUS AND IS FREQUENTLY UP AND DOWN DURING THE DAY. MR. CARABALLO LIVES WITH HIS AND SHE PROVIDES ASSISTANCE FOR PERSONAL CARE WHEN NEEDED. MR. CARABALLO IS INDEPENDENT WITH FEEDING, TOILETING AND MOST OF PERSONAL CARE. HE IS ABLE TO DRESS HIMSELF. MR. CARABALLO IS AMBULATORY IN THE ROOM AND HALLWAY WITH USE OF HIS WALKING CANE. HE DENIES PAIN TODAY AND REPORTS HE IS FEELING GOOD. HE REPORTS HE IS READY TO GO HOME TODAY. MEAL INTAKES ARE GOOD AT 50-100%. MR. CARABALLO IS CONTINENT OF BOWEL AND BLADDER. SKIN IS INTACT AND FREE OF DECUBITUS ULCERS. LUCILA ZHAO MD
[2019-06-18 11:19] VITALS: BP 122/72; TEMP 98.2
--- NOTE | 2019-06-18 14:45 | PN ---
DATE OF SERVICE: 06/16/19 SUBJECTIVE: The patient was seen and examined by the ER attending with complaint of having right hip pain along with mucus, blood-tinged, cough and congestion, worsening of mental status. The patient was brought to the Emergency Room by the . Chest CT scan is pending. Cardiovascular status is stable with no evidence of CHF. The patient has history of CVA with somewhat mixed dementia. Contributing major factor could be vascular dementia. The patient's dementia has been progressing to the point where the patient has been very difficult to be kept at home by the . The patient has a lot of multiple nonspecific complaints. He has been seen multiple times in the past 4 to 5 months in the office, practically the same kind of complaints. The patient is emotional and cries at times when talking to anybody about his health PLAN: 1. Admit the patient and give Toradol 30 mg q.8hr. 2. Continue Xarelto for the patient's atrial fibrillation. 3. Steroids. 4. IV antibiotics. TIME SPENT: More than 30 minutes. Plan and coordination of the patient's care discussed in the presence of nurse. LAKESHIA
--- NOTE | 2019-06-24 13:34 | HP ---
DATE OF SERVICE: 06/16/19 HISTORY OF PRESENT ILLNESS: 83-year-old white male who presented to the Emergency Room with his complaining of coughing with blood-tinged sputum, dizziness, emotional instability, left hip pain. PAST MEDICAL HISTORY: Severe COPD History of hemoptysis, sees the lung doctor Atrial fibrillation on Coumadin Dementia with behavioral disturbances CVA in 2007 Chronic kidney disease, Stage 3 Systolic heart failure Dyslipidemia History of diverticulosis Dilated hypertrophic cardiomyopathy LVH PAST SURGICAL HISTORY: Hemorrhoid surgery Cholecystectomy Right shoulder surgery REVIEW OF SYSTEMS: CONSTITUTIONAL: Positive for anxiety, agitation. No night sweats. No fatigue, malaise, lethargy. No fever or chills. HEENT: Eyes: No visual changes. No eye pain. No eye discharge. ENT: No runny nose. No epistaxis. No sinus pain. No sore throat. No odynophagia. No ear pain. No congestion. RESPIRATORY: Positive for cough. No congestion. No hemoptysis. No shortness of breath. CARDIOVASCULAR: No angina symptoms. No CHF symptoms. No atypical chest pain for CAD. No palpitations. No PND. No orthopnea. GASTROINTESTINAL: No abdominal pain. No nausea or vomiting. No diarrhea or constipation. No hematemesis. No hematochezia. GENITOURINARY: No urgency. No frequency. No dysuria. No hematuria. No obstructive symptoms. No discharge. No pain. No significant abnormal bleeding. MUSCULOSKELETAL: No musculoskeletal pain. No joint swelling. No arthritis. NEUROLOGICAL: Positive for confusion. No headache. No neck pain. No syncope. No seizures. No dizziness. PSYCHIATRIC: Not anxious. No depression. No suicidal thoughts. No homicidal thoughts. SKIN: No rash. No lesions. No wounds. ENDOCRINE: No unexplained weight loss. No weight gain. HEMATOLOGIC/LYMPHATIC: No anemia. No purpura. No petechiae. No prolonged or excessive bleeding. No palpable lymph nodes. PERSONAL/FAMILY/SOCIAL HISTORY: He is . He lives at home with his . He is a nonsmoker. No alcohol or ilicit drug use. MEDICATIONS: Donepezil 10 mg p.o. bedtime Namenda 10 mg p.o. b.i.d. Fenofibrate 160 mg p.o. bedtime Aspirin 81 mg p.o. daily Lorazepam (Ativan) 0.5 mg p.o. p.r.n. [place]-3 fatty acids-fish oil one each p.o. daily Gabapentin 300 mg p.o. t.i.d. Tramadol 50 mg p.o. q.6hr Sacubitril-Valsartan one each p.o. b.i.d. Diltiazem 90 mg p.o. b.i.d. Rosuvastatin 20 mg p.o. daily Warfarin 2 mg p.o. q.p.m. ALLERGIES: SHELLFISH DERIVED PHYSICAL EXAMINATION: VITAL SIGNS: Temperature 98, heart rate 93, respirations 20, BP 130/72, pulse ox 96%. HEENT: Head normocephalic, atraumatic. Eyes: Extraocular muscles are intact. Pupils are equal, round and reactive to light and accommodation. Ears: No lesions. Nose appeared normal. Throat: No exudate or erythema. NECK: Supple. No JVD, no carotid bruit. No lymphadenopathy or thyromegaly. LUNGS: Diminished breath sounds bilaterally with expiratory wheezing, right lower lobe rhonchi. Percussion note normal. Chest symmetrical. HEART: S1, S2, no S3. No murmur. No cyanosis or clubbing. No ascites. Pulses: Dorsalis pedis and posterior tibial pulses +1 to +2 bilaterally. ABDOMEN: Soft. Nontender. Bowel sounds active. No CVA tenderness. No mass felt. EXTREMITIES: No edema. Full range of motion of all extremities, equal. NEUROLOGIC: No focal deficit. Cranial nerves II through XII are grossly intact. No headache, no double vision or headache. SKIN: Not dry. Intact. Turgor - normal. LYMPHATIC: No palpable lymph nodes/no lymphedema. MUSCULOSKELETAL: Normal joints with no swelling. Muscle tone is normal. LABS: White count 5.3, hemoglobin 11.5, hematocrit 41.2, platelets 215. Sodium 139, potassium 4.2, BUN 30, creatinine 1.5. Urine 2+ protein. Chest x-ray no acute findings. ASSESSMENT: 1. ACUTE BRONCHITIS WITH BLOOD-TINGED SPUTUM. 2. DIZZINESS. 3. EMOTIONAL INSTABILITY. 4. ANXIETY. 5. DEMENTIA. 6. HYPERTENSION. 7. LEFT HIP PAIN. PLAN: 1. We will admit. 2. Routine telemetry orders. 3. CBC, CMP daily. 4. Rocephin 1 gm IV daily. 5. Solu-Medrol 80 mg IV q.12 hr. 6. Xopenex nebs t.i.d. JENNIFER. 7. Continue home medications. 8. Daily PT/INR. 9. Will follow closely. TIME SPENT: More than 70 minutes. MTDD
--- NOTE | 2019-07-01 13:14 | DS ---
DATE OF SERVICE: 06/18/19 FINAL DIAGNOSIS: 1. ACUTE BRONCHITIS, LIKELY ALLERGY RELATED 2. DEHYDRATION 3. LEFT HIP PAIN 4. ABDOMINAL PAIN 5. ATRIAL FIBRILLATION (COUMADIN) 6. DEMENTIA WITH BEHAVIORAL ISSUES 7. CVA, 2007 8. CKD, STAGE 3 9. HYPERCHOLESTEROLEMIA 10. DIVERTICULOSIS 11. DILATED HYPERTROPHIC CARDIOMYOPATHY 12. ECHOCARDIOGRAM: DEC, 2018 13. LVEF 34% 14. MODERATE LVH 15. ENLARGED LEFT ATRIAL CAVITY 16. HEMORRHOID SURGERY 17. CHOLECYSTECTOMY 18. RIGHT SHOULDER SURGERY LAST VITALS Temp Pulse Resp BP Pulse Ox 97.5 F L 105 H 18 115/71 97 06/18/19 04:50 06/18/19 04:50 06/18/19 04:50 06/18/19 04:50 06/18/19 09:23 DISCHARGE INSTRUCTIONS: DISCHARGE HOME WITH SPOUSE PLEASE KEEP THE SCHEDULED APPOINTMENT ON June AT 10:30 CONTINUE TO USE OXYGEN AT NIGHT AT 2 LITERS CONTINUE TO USE NEBULIZER TREATMENTS AT LEAST 3 TIMES DAILY MEDICATIONS AT DISCHARGE: Albuterol/Ipratropium (Duoneb) 3 ml NEB RTQ6H [facility] Last Admin: 06/18/19 04:55 Dose: 3 ml Documented by: Aspirin (Aspirin Chewable) 81 mg PO BEDTIME [facility] Last Admin: 06/17/19 20:28 Dose: 81 mg Documented by: Donepezil HCl (Aricept) 10 mg PO BEDTIME [facility] Last Admin: 06/17/19 20:30 Dose: 10 mg Documented by: Fenofibrate (Triglide) 160 mg PO BEDTIME [facility] Last Admin: 06/17/19 20:33 Dose: 160 mg Documented by: Furosemide (Lasix Tab) 40 mg PO QDAC [facility] Last Admin: 06/18/19 05:56 Dose: 40 mg Documented by: Gabapentin (Neurontin) 300 mg PO TID [facility] Last Admin: 06/18/19 08:44 Dose: 300 mg Documented by: Lorazepam (Ativan) 0.5 mg PO DAILY PRN PRN Reason: Agitation Last Admin: 06/17/19 21:52 Dose: 0.5 mg Documented by: Memantine (Namenda) 10 mg PO BID [facility] Last Admin: 06/18/19 08:43 Dose: 10 mg Documented by: Non-Formulary Medication (Sacubitril-Valsartan 49-51 MG) 1 PO BID [facility] Last Admin: 06/18/19 08:46 Dose: 1 each Documented by: Non-Formulary Medication (Diltiazem Hcl ) 90 mg PO BID [facility] Last Admin: 06/18/19 08:43 Dose: 90 mg Documented by: Non-Formulary Medication (Rosuvastatin ) 20 mg PO DAILY [facility] Last Admin: 06/18/19 08:44 Dose: 20 mg Documented by: Non-Formulary Medication (Warfarin ) 2 mg PO QPM [facility] Last Admin: 06/17/19 17:10 Dose: 2 mg Documented by: Omeprazole (Prilosec) 20 mg PO QDAC [facility] Last Admin: 06/18/19 05:56 Dose: 20 mg Documented by: POTASSIUM 20 MEQ DAILY SCHEDULED LAST DOSE: Tramadol HCl (Ultram) 50 mg PO Q6HR PRN PRN Reason: Pain Last Admin: 06/17/19 15:40 Dose: 50 mg Documented by: TAMSULOSIN HCL 0.4 MG DAILY LAST ADMIN: NEW PRESCRIPTIONS: KEFLEX 500 MG TID FOR 5 DAYS PREDNISONE 20 MG DAILY FOR 5 DAYS, THEN 10 MG DAILY FOR 5 DAYS DISCONTINUED MEDICATIONS: NONE DIET INSTRUCTIONS: TOLERATED ACTIVITY: GRADUALLY RESUME TOLERATED SMOKING: NOT APPLICABLE DISEASE SPECIFIC EDUCATION: PRESCRIPTIONS USE OF ORAL STEROIDS AND RISK OF GI IRRITATION APPOINTMENT HOSPITAL COURSE: 83-year-old white male hospitalized with worsening of dementia, cough, congestion, blood-tinged sputum production with hip pains mostly right. The patient had not fallen. The patient's pain level was quite high. The patient was treated in the hospital with steroids, nebs treatments and antibiotics. The patient's condition has improved. His arthritic pain was a lot better I think mainly because of steroid treatment that was also given for his pulmonary problem. In any case, in a couple of days, the patient's pain level had gone down. He didn't complain of any pain. The patient's bronchitis symptoms were a lot better. The patient's has declined any pulmonary consultation. The patient has been seen by pulmonary physician in the past. He would like to stay with me and not see any other distributed energy systems consultant according to the patient. The patient was discharged on Keflex and Prednisone on tapering dose. Condition at time of discharge was stable. Creatinine 1.3, BUN 29, potassium 4.7, glucose 145. Hemoglobin 11, hematocrit 39, WBC 4,800. INR 1.69. He was advised to take extra Coumadin. Condition at the time of discharge stable. TIME SPENT: More than 60 minutes. LAKESHIA
--- NOTE | 2019-07-01 13:22 | PN ---
CODING FOR BILLING 06/16/19 ADMISSION DAY LEVEL 5 06/17/19 INTERMEDIATE 06/18/19 DISCHARGE THE PATIENT WAS ADMITTED TO [facility]
--- NOTE | 2019-07-02 08:25 | PN ---
DATE OF SERVICE: 06/17/19 SUBJECTIVE: The patient was seen and examined with the nurse practitioner. The patient's hip pain is much less. He wants to go home. He has bronchitis type of symptoms with blood-tinged mucus has subsided. Condition is improving. The patient is emotional after his stroke. The is present in the room and she has been worn out because of taking care of who has been sick for the past several years. She is reluctant to put him in the skilled nursing. TIME SPENT: More than 30 minutes. Plan and coordination of the patient's care discussed in the presence of nurse. LAKESHIA
--- NOTE | 2019-07-02 13:54 | PN ---
DATE OF SERVICE: 06/18/19 DISCHARGE NOTE SUBJECTIVE: 83-year-old white male admitted to observation with multiple complaints. The patient had worsening of dementia, cough with yellowish-tinged sputum, right hip pain, generalized arthritis. The patient's condition has improved. He is feeling better. He doesn't complain of pain. His appetite has improved. He is coughing up clear sputum. Cough is much less. According to him no symptoms of CHF. PHYSICAL EXAMINATION: VITAL SIGNS: Temperature 97.5, pulse 100, respiratory rate 18, BP 115/70, pulse ox 95% on room air. HEENT: Head normocephalic, atraumatic. Eyes: Extraocular muscles are intact. Pupils are equal, round and reactive to light and accommodation. Ears: No lesions. Nose appeared normal. Throat: No exudate or erythema. NECK: Supple. No JVD, no carotid bruit. No lymphadenopathy or thyromegaly. LUNGS: Crepitations bilaterally, dry. Percussion note normal. Chest symmetrical. HEART: S1, S2, no S3. No murmurs. No cyanosis or clubbing. No ascites. Pulses: Dorsalis pedis and posterior tibial pulses +1 to +2 bilaterally. ABDOMEN: Protuberant. Soft. Nontender. Bowel sounds active. No CVA tenderness. No mass felt. EXTREMITIES: Trace pedal edema. Full range of motion of all extremities, equal. NEUROLOGIC: No focal deficit. Cranial nerves II through XII are grossly intact. No headache, no double vision or headache. SKIN: Not dry. Intact. Turgor - normal. LYMPHATIC: No palpable lymph nodes/no lymphedema. MUSCULOSKELETAL: Normal joints with no swelling. Muscle tone is normal. LABS: Hemoglobin 11, hematocrit 39, WBC 4,800, normal differential. Creatinine 1.3, BUN 29, potassium 4.7. ASSESSMENT: 1. The patient's condition has improved. Arthritic pain is much better. 2. The patient has acute bronchitis which seems to be allergic, chronic that seems to have improved. No blood-tinged sputum noted. 3. Dementia worsening. 4. Emotional instability is the main problem. PLAN: 1. The patient will be discharged home on Keflex and steroids. The side effects of steroids including avascular necrosis of the hip bone, femur head discussed. 2. Advised to lose weight. BMI 33. 3. The patient's is unable to take care of him at home. TIME SPENT: More than 30 minutes. Plan and coordination of the patient's care discussed in the presence of nurse. LAKESHIA
== END 2019-06-18 11:44 | disposition home or self-care (01) ==
LOC: ED 16:38 → MEDSURG B 18:27 → INTOOBSV 18:27 → MEDSURG B 20:05
PROVIDERS: ADMIT Internal Medicine; ATTEND Internal Medicine
DX: I10 Essential (primary) hypertension; F41.9 Anxiety disorder, unspecified; R63.0 Anorexia; N18.3 Chronic kidney disease, stage 3 (moderate); I48.91 Unspecified atrial fibrillation; M25.552 Pain in left hip; Z86.73 Personal history of transient ischemic attack (TIA), and cerebral infarction without residual deficits; R05 Cough; R10.9 Unspecified abdominal pain; E86.0 Dehydration; F03.90 Unspecified dementia, unspecified severity, without behavioral disturbance, psychotic disturbance, mood disturbance, and anxiety; R42 Dizziness and giddiness; J40 Bronchitis, not specified as acute or chronic

== ENCOUNTER 2019-06-21 15:13 | Inpatient (IN) ==
--- NOTE | 2019-06-21 16:12 | CT ---
EXAM: CT scan of the chest without contrast HISTORY: Cough TECHNIQUE: Helical imaging of the chest was performed without contrast. 5 mm thin axial images and coronal and sagittal reconstructions were provided for interpretation. FINDINGS: There is a small right pleural effusion. The heart is normal size. No mediastinal abnorm alities are seen. Patchy ground-glass opacities are seen in the lung bases bilaterally. No lytic or blastic lesions are seen within the osseous structures. IMPRESSION: Mild probable pneumonia seen within the lung bases bilaterally. Small right pleural effusion.
--- NOTE | 2019-06-21 16:15 | CT ---
EXAM: CT scan of the abdomen and pelvis without contrast HISTORY: Right lower quadrant pain TECHNIQUE: Helical imaging of the abdomen and pelvis was performed without contrast. 3 mm thin axia l images and coronal and sagittal reconstructions were provided for interpretation. Comparison CT scan of the abdomen pelvis without contrast dated 06/16/2019. FINDINGS: No acute abnormalities are seen within the liver, spleen, pancreas, adrenal glands and kid neys. The proximal ureters are normal size. The small and large bowel loops are normal caliber. Th e appendix appears normal. The helical images obtained through the pelvis demonstrate a normal appearance of the rectum, urinary bladder. There is no free fluid seen within the pelvis. Diverticula are seen within the sigmoid co maryse without acute inflammation. There is no free fluid seen within the pelvis. There is a small rig ht pleural effusion. Opacities are seen within the dependent lung bases bilaterally. IMPRESSION: There is no bowel obstruction or acute inflammatory change seen within the abdomen and p wilfred. Diverticular disease of the sigmoid colon without acute inflammation. There is no ureteral obstruction. Mild probable pneumonia seen within the dependent lung bases bilaterally. Small right pleural effusion.
[2019-06-21] MEDS ORDERED: ROCEPHIN 1 GM/50 ML D5W 1 GM/50 ML BAG IV STA (16:33)
[2019-06-21] MEDS ORDERED: BUMEX IVP STA (16:33)
--- NOTE | 2019-06-21 17:01 | ED.PDOC ---
General ED Provider: Dr. JOHN AGUDELO Chief Complaint: Abdominal Pain Stated Complaint: i left the hospital too early--i convinced to let dr suárez to send me home but i made a mistake ---i shouldnt have went home Time Seen by Physician: 17:01 Mode of Arrival: Walk-In Information Source: Patient Primary Care Provider: LUCILA SUÁREZ Nursing and Triage Documentation Reviewed and Agree: Yes Does patient meet sepsis criteria?: No System Inflammatory Response Syndrome: Not Applicable Sepsis Protocol: For patient's 13 years and over: Temp is 96.8 and below OR 101 and greater Pulse >90 BPM Resp >20/minute Acutely Altered Mental Status Are patient's symptoms suggestive of a new infection, such as: -Pneumonia -Skin, Soft Tissue -Endocarditis -UTI -Bone, Joint Infection -Implantable Device -Acute Abdominal Infection -Wound Infection -Meningitis -Blood Stream Catheter Infection -Unknown Respiratory Complaint Exam Respiratory Complaint/Exam Onset/Duration: several days(after leaving hospital) Symptoms Are: Still present Timing: Constant Initial Severity: Mild Current Severity: Moderate Location: Chest Character: Reports Non-productive cough Aggravating: Reports None Associated Signs and Symptoms: Reports Dyspnea and Pleuritic chest pain Home Oxygen Use: Yes Recent Stress Test: No Current Antibiotic Use: No Current Asthma Medication Use: No Respiratory Distress: None Inadequate Respiratory Effort: No Dysphagia Present: No Stridor Present: No JVD Present: No Accessory Muscle Use: No Retractions: Not Present Diminished Breath Sounds: Yes Sinus Tenderness: None Grunting Respirations: No Kussmaul Respirations: No Differential Diagnoses: CHF and Pneumonia Non-Traumatic Chest Pain Syncope: EKG Performed Review of Systems Review Of Systems Constitutional: Reports No symptoms Eyes: Reports No symptoms Ears, Nose, Mouth, Throat: Reports No symptoms Respiratory: Reports Cough and Short of air Cardiac: Reports No symptoms GI: Reports No symptoms : Reports No symptoms Musculoskeletal: Reports No symptoms Skin: Reports No symptoms Neurological: Reports No symptoms Endocrine: Reports No symptoms Hematologic/Lymphatic: Reports No symptoms All Other Systems: Reviewed and Negative [facility] Medical History CVA (cerebral vascular accident) (Acute ~2017) Dementia (Acute) Hx of appendectomy (Acute) Hx of cholecystectomy (Acute) Hypertension (Acute) Congestive heart failure Social History Smoking and tobacco status: Never smoker Alcohol intake: never Substance use type: does not use History of recent travel: No Current gender identity: male Physical Exam Physical Exam Appearance: Well-appearing Ill-appearing: Mild Pain Distress: None Eyes: BRADLEY, EOMI and Conjunctiva clear ENT: Ears normal Neck: Supple Respiratory: Breath sounds diminished, Crackles and Rhonchi Cardiovascular: RRR and Pulses normal GI/: Soft Musculoskeletal: Normal strength Skin: Warm Neurological: Sensation intact Psychiatric: Affect appropriate and Mood appropriate Interpretation Radiology Interpretation Radiology Interpretation By: Radiologist Radiology Results: Positive Exam Interpreted: CT Scan EKG Interpretation Time of EKG #1: 16:59 Rate: Normal Rhythm: Other Ectopy: None [place]: NL ST Segment: Normal Interpretation: afib Physician Notification Case Discussed Physician Notified: dr suárez Time of Notification: 16:59 Critical Care Note Critical Care Note Total Time (mins): 15 Course Course Hematology/Chemistry: 06/21/19 15:58 06/21/19 15:58 Orders, Labs, Meds: Lab Review 06/21/19 06/21/19 06/21/19 15:43 15:58 15:58 WBC 8.27 RBC 6.02 Hgb 11.8 L Hct 41.7 L MCV 69.3 L MCH 19.6 L MCHC 28.3 L RDW Coeff of Lynda 20.8 H Plt Count 244 Immature Gran % (Auto) 0.5 Neut % (Auto) 76.6 Lymph % (Auto) 9.9 L [place] % (Auto) 12.0 H Eos % (Auto) 0.8 Baso % (Auto) 0.2 Immature Gran # (Auto) 0.0 Neut # (Auto) 6.3 Lymph # (Auto) 0.8 [place] # (Auto) 1.0 Eos # (Auto) 0.1 Baso # (Auto) 0.0 PT INR Puncture Site O2 Saturation ABG pH ABG pCO2 ABG pO2 ABG HCO3 ABG Total CO2 ABG Base Excess Kar Test FiO2 % Sodium 141.3 Potassium 4.30 Chloride 104.6 Carbon Dioxide 31.1 H Anion Gap 9.90 BUN 43.7 H Creatinine 1.61 H Estimated GFR (MDRD) 41.00 BUN/Creatinine Ratio 27.14 Glucose 101.8 Calcium 9.08 Total Bilirubin 0.72 AST 27.1 ALT 19.0 Alkaline Phosphatase 48.2 L Total Creatine Kinase 40.2 L Troponin I 0.015 NT-Pro-B Natriuret Pep 7060.000 H Total Protein 6.59 Albumin 3.91 Globulin 2.68 Albumin/Globulin Ratio 1.45 Amylase 93.4 Lipase 332.3 H Urine Color Yellow Urine Clarity Clear Urine pH 7.0 Ur Specific [place] 1.015 Urine Protein Negative Urine Glucose (UA) Negative Urine Ketones Negative Urine Blood Negative Urine Nitrite Negative Urine Bilirubin Negative Urine Urobilinogen 0.2 Ur Leukocyte Esterase Trace Urine Microscopic RBC 0-2 Urine Microscopic WBC 0-2 Ur Squamous Epith Cells 0-2 06/21/19 06/21/19 15:58 15:59 WBC RBC Hgb Hct MCV MCH MCHC RDW Coeff of Lynda Plt Count Immature Gran % (Auto) Neut % (Auto) Lymph % (Auto) [place] % (Auto) Eos % (Auto) Baso % (Auto) Immature Gran # (Auto) Neut # (Auto) Lymph # (Auto) [place] # (Auto) Eos # (Auto) Baso # (Auto) PT 17.6 H INR 1.86 Puncture Site Rrad O2 Saturation 88.0 L ABG pH 7.425 ABG pCO2 39.8 ABG pO2 53.0 L* ABG HCO3 26.1 H ABG Total CO2 27 ABG Base Excess 2 Kar Test + FiO2 % 21.0 Sodium Potassium Chloride Carbon Dioxide Anion Gap BUN Creatinine Estimated GFR (MDRD) BUN/Creatinine Ratio Glucose Calcium Total Bilirubin AST ALT Alkaline Phosphatase Total Creatine Kinase Troponin I NT-Pro-B Natriuret Pep Total Protein Albumin Globulin Albumin/Globulin Ratio Amylase Lipase Urine Color Urine Clarity Urine pH Ur Specific [place] Urine Protein Urine Glucose (UA) Urine Ketones Urine Blood Urine Nitrite Urine Bilirubin Urine Urobilinogen Ur Leukocyte Esterase Urine Microscopic RBC Urine Microscopic WBC Ur Squamous Epith Cells Orders Category Date Time Status ABG DRAW REQUEST Stat CARDIO 06/21/19 15:59 Completed EKG-(ED ONLY) Stat CARDIO 06/21/19 15:34 Completed ED RECORDS MANAGEMENT ASSOCIATE APPLIED .ONCE EMERGENCY 06/21/19 15:34 Active ED IV/MEDIPORT/POWERPORT .ONCE EMERGENCY 06/21/19 16:33 Active ABG Stat LAB 06/21/19 15:59 Completed AMYLASE Stat LAB 06/21/19 15:58 Completed BLOOD CULTURE (ED ONLY) Stat LAB 06/21/19 Ordered CBC W/ AUTO DIFF Stat LAB 06/21/19 15:58 Completed COMPREHENSIVE METABOLIC PANEL Stat LAB 06/21/19 15:58 Completed CREATINE KINASE Stat LAB 06/21/19 15:58 Completed LIPASE Stat LAB 06/21/19 15:58 Completed NT-PROBNP Stat LAB 06/21/19 15:58 Completed PT WITH INR Stat LAB 06/21/19 15:58 Completed TROPONIN I Stat LAB 06/21/19 15:58 Completed URINALYSIS WITH MICROSCOPIC Stat LAB 06/21/19 15:43 Completed 0.9 % Sodium Chloride [Saline Flush] MEDS 06/21/19 16:33 Active 1 syr IVF PRN PRN Bumetanide [Bumex] MEDS 06/21/19 16:33 Discontinued 1 mg IVP ONCE STA Ceftriaxone/D5w 1 gm Premix [Rocephin 1 gm/50 ml D5w] MEDS 06/21/19 16:33 Active 1 gm in [address] ABDOMEN/PELVIS WO CONTRAST Stat RADS 06/21/19 15:[address] CHEST W/O CONTRAST Stat RADS 06/21/19 15:38 Completed Medications Generic Name Dose Route Start Last Admin Trade Name Freq PRN Reason Stop Dose Admin CEFTRIAXONE/D5W 1 GM PREMIX 1 gm in 50 mls @ 75 mls/hr 06/21/19 16:33 06/21/19 16:49 Rocephin 1 Gm/50 Ml D5w IV 06/21/19 17:12 75 mls/hr ONCE STA Administration Sodium Chloride 1 syr 06/21/19 16:33 06/21/19 16:50 Saline Flush IVF 1 syr PRN PRN Administration To flush IV Discontinued Medications Generic Name Dose Route Start Last Admin Trade Name Freq PRN Reason Stop Dose Admin Bumetanide 1 mg 06/21/19 16:33 06/21/19 16:48 Bumex IVP 06/21/19 16:34 1 mg ONCE STA Administration Vital Signs: Temp Pulse Resp BP Pulse Ox 06/21/19 15:22 98.2 F 83 20 128/85 93 L Discharge Plan Discharge Patient Disposition: ADMITTED INPATIENT Discharge Problem: Pneumonitis, Heart failure Prescriptions: No Action donepezil 10 MG tablet 10 mg PO BEDTIME RF: 0 memantine [Namenda] 10 MG tablet 10 mg PO BID RF: 0 fenofibrate 160 MG tablet 160 mg PO BEDTIME RF: 0 aspirin [Bon Chewable Aspirin] 81 MG tablet,chewable 81 mg PO DAILY RF: 0 diltiazem HCl 90 mg Tablet 90 mg PO BID RF: 0 rosuvastatin [Crestor] 20 mg Tablet 20 mg PO DAILY RF: 0 warfarin [Coumadin] 1 mg Tablet 2 mg PO QPM RF: 0 furosemide [Lasix] 40 mg Tablet 40 mg PO DAILY Qty: 1 RF: 0 potassium chloride [Klor-Con] 20 mEq Packet 20 meq PO DAILY Qty: 1 RF: 0 cephalexin [Keflex] 500 mg Capsule 500 mg PO Q8H Qty: 15 RF: 0 prednisone 20 mg Tablet 20 mg PO DIRECTED Qty: 10 RF: 0 lorazepam [Ativan] 0.5 MG tablet 0.5 mg PO PRN PRN (Reason: Anxiety) RF: 0 gabapentin [Neurontin] 300 MG capsule 300 mg PO TID RF: 0 Fish Oil 1 EACH capsule 1 ea PO DAILY RF: 0 Entresto 1 EACH tablet 1 ea PO BID RF: 0 tramadol [Ultram] 50 MG tablet 50 mg PO Q6HR Qty: 14 RF: 0 ED Provider: JOHN AGUDELO Condition: Fair
[2019-06-21] MEDS ORDERED: ATIVAN PO PRN (17:07)
[2019-06-21] MEDS ORDERED: PREDNISONE PO SCH (17:30)
[2019-06-21] MEDS: DOXY-100 100 MG in SODIUM CHLORIDE 100 ML IV SCH ×2 (17:47→19:06)
[2019-06-21] MEDS: ULTRAM PO SCH (17:48)
[2019-06-21 17:55] VITALS: BMI 15.5
[2019-06-21] MEDS: COUMADIN PO SCH (19:08)
[2019-06-21] MEDS ORDERED: ENTRESTO 24 MG-26 MG TABLET ONE ×2 (20:01→21:22)
[2019-06-21] MEDS ORDERED: BUMEX IVP SCH (21:00)
[2019-06-21] MEDS ORDERED: SACUBITRIL VALSARTAN PO SCH (21:00)
[2019-06-21] MEDS: CARDIZEM PO SCH (21:08)
[2019-06-21] MEDS: ARICEPT PO SCH (21:09)
[2019-06-21] MEDS: NAMENDA PO SCH (21:09)
[2019-06-21] MEDS: NEURONTIN PO SCH (21:09)
[2019-06-21] MEDS: TRIGLIDE PO SCH (22:09)
[2019-06-22] MEDS: ULTRAM PO SCH ×4 (02:14→17:34)
[2019-06-22] MEDS: DOXY-100 100 MG in SODIUM CHLORIDE 100 ML IV SCH ×3 (03:00→20:00)
[2019-06-22] MEDS ORDERED: BUMEX IVP SCH (07:30)
[2019-06-22] MEDS: ATIVAN PO PRN ×3 (08:29→20:01)
[2019-06-22] MEDS: ROCEPHIN 1 GM/50 ML D5W 1 GM/50 ML BAG IV SCH (08:38)
[2019-06-22] MEDS: ASPIRIN CHEWABLE PO SCH (08:38)
[2019-06-22] MEDS: CARDIZEM PO SCH ×2 (08:39→20:01)
[2019-06-22] MEDS: NEURONTIN PO SCH ×3 (08:39→20:01)
[2019-06-22] MEDS: PREDNISONE PO SCH (08:39)
[2019-06-22] MEDS: K-DUR PO SCH (08:40)
[2019-06-22] MEDS: CRESTOR PO SCH (08:40)
[2019-06-22] MEDS: NAMENDA PO SCH ×2 (08:40→20:01)
[2019-06-22] MEDS: ENTRESTO 24 MG-26 MG TABLET PO SCH ×2 (08:55→20:00)
[2019-06-22] MEDS: DECADRON 4 MG/ML SDV IM SCH (12:14)
[2019-06-22] MEDS: COUMADIN PO SCH (16:18)
[2019-06-22] MEDS: ARICEPT PO SCH (20:01)
[2019-06-22] MEDS: TRIGLIDE PO SCH (20:01)
[2019-06-23] MEDS: ULTRAM PO SCH ×5 (00:33→23:13)
--- NOTE | 2019-06-23 08:31 | PCM.PROG ---
Attending Provider: ATTENDING PROVIDER: Dr. LUCILA ZHAO This patient is seen with Maria Teresa Arroyo, Nurse Practitioner. DATE OF SERVICE: 06/23/19 SUBJECTIVE: This 83 year old /WHITE M was hospitalized 06/21/19. The patient is resting comfortably. Shortness of breath has improved. Cough has improved. REVIEW OF SYSTEMS: CONSTITUTIONAL: No night sweats. No fatigue, malaise, lethargy. No fever or chills. Weakness. HEENT: Eyes: No visual changes. No eye pain. No eye discharge. ENT: No runny nose. No epistaxis. No sinus pain. No odynophagia. No congestion. RESPIRATORY: Cough, no congestion. No hemoptysis. No shortness of breath. CARDIOVASCULAR: No angina symptoms. No CHF symptoms. No atypical chest pain for CAD. No palpitations. No orthopnea.. GASTROINTESTINAL: No abdominal pain. No nausea or vomiting. No diarrhea or constipation. No hematemesis. No hematochezia. GENITOURINARY: No urgency. No frequency. No dysuria. No hematuria. No obstructive symptoms. No discharge. No pain. No significant abnormal bleeding. MUSCULOSKELETAL: No musculoskeletal pain; no joint swelling. NEUROLOGICAL: Awake, alert, oriented to time, place and person. No headache. No neck pain. No syncope. No seizures. No dizziness. PSYCHIATRIC: Not anxious. No depression. No suicidal thoughts. No homicidal thoughts. SKIN: No rash. No lesions. No wounds. ENDOCRINE: No unexplained weight loss. No weight gain. HEMATOLOGIC/LYMPHATIC: No anemia. No purpura. No petechiae. No prolonged or e xcessive bleeding. No palpable lymph nodes. PHYSICAL EXAMINATION: GENERAL: The patient is awake, alert and oriented, lying in bed in no distress. VITAL SIGNS: Temperature 97.6 F, Pulse 119, Respiratory Rate 20, BP 122/76, Pulse Ox 95% HEENT: Head normocephalic, atraumatic. Eyes: Extraocular muscles are intact. Pupils are equal, round and reactive to light and accommodation. Ears: No lesions. Nose appeared normal. Throat: No exudate or erythema. NECK: Supple. No JVD, no carotid bruit. No lymphadenopathy or thyromegaly. LUNGS: Diminished breath sounds. Clear to auscultation. Percussion note normal. Chest symmetrical. HEART: S1, S2, no S3. No murmurs. No cyanosis or clubbing. No ascites. Pulses: Dorsalis pedis and posterior tibial pulses +1 to +2 both sides. ABDOMEN: Soft. Non-tender. Bowel sounds active. No CVA tenderness. No mass felt. EXTREMITIES: No edema. Full range of motion of all extremities, equal. NEUROLOGIC: No focal deficit. Cranial nerves II through XII are grossly intact. No headache, no double vision or headache. SKIN: Not dry. Intact. Turgor-normal. LYMPHATIC: No palpable lymph nodes/no lymphedema. MUSCULOSKELETAL: Normal joints with no swelling. Muscle tone is normal. LAB REVIEW: 06/23/19 05:09 06/23/19 05:09 06/23/19 05:10: Puncture Site Rrad, O2 Saturation 91.0 L, ABG pH 7.405, ABG pCO2 43.3, ABG pO2 62.0 L, ABG HCO3 27.1 H, ABG Total CO2 28, ABG Base Excess 2, Kar Test +, FiO2 % 21.0 06/23/19 05:09: Sodium 137.3, Potassium 4.41, Chloride 101.5, Carbon Dioxide 28.5, Anion Gap 11.71, BUN 37.1 H, Creatinine 1.41 H, Estimated GFR (MDRD) 48.0 0, BUN/Creatinine Ratio 26.31, Glucose 144.3 H, Calcium 8.91, Total Bilirubin 0.51, AST 23.1, ALT 17.7, Alkaline Phosphatase 57.3, Total Protein 6.43, Albumin 3.81, Globulin 2.62, Albumin/Globulin Ratio 1.45 06/23/19 05:09: PT 17.7 H, INR 1.88 06/23/19 05:09: WBC 7.25, RBC 5.93, Hgb 11.7 L, Hct 41.3 L, MCV 69.6 L, MCH 19.7 L, MCHC 28.3 L, RDW Coeff of Lynda 20.6 H, Plt Count 267, Immature Gran % (Auto) 0.6, Neut % (Auto) 85.1, Lymph % (Auto) 7.3 L, [place] % (Auto) 6.9, Eos % (Auto) 0.0, Baso % (Auto) 0.1, Immature Gran # (Auto) 0.0, Neut # (Auto) 6.2, Lymph # (Auto) 0.5 L, [place] # (Auto) 0.5, Eos # (Auto) 0.0, Baso # (Auto) 0.0, Hypochromasia 2+, Anisocytosis 1+, Ovalocytes 1+ ASSESSMENT: Please see below. 1. Bi-basilar pneumonia 2. COPD 3. Chronic kidney disease 3. Dementia 4. Atrial fibrillation. PLAN: 1. Add Xopenex NEBS TID 2. Continue IV antibiotics Plan and coordination of the patient's care discussed in the presence of Train Braker and nurse. SCRIBED BY: FORREST CORNELIUS Soaking Tank Worker scribed while in presence of service performed by Dr. Zhao/Maria Teresa Arroyo APRN on 06/23/19 ([id number])
[2019-06-23] MEDS ORDERED: BUMEX IVP SCH (09:00)
[2019-06-23] MEDS: ROCEPHIN 1 GM/50 ML D5W 1 GM/50 ML BAG IV SCH (09:05)
[2019-06-23] MEDS: PREDNISONE PO SCH (09:05)
[2019-06-23] MEDS: K-DUR PO SCH (09:06)
[2019-06-23] MEDS: CRESTOR PO SCH (09:06)
[2019-06-23] MEDS: DECADRON 4 MG/ML SDV IM SCH (09:06)
[2019-06-23] MEDS: ASPIRIN CHEWABLE PO SCH (09:07)
[2019-06-23] MEDS: NAMENDA PO SCH ×2 (09:07→21:06)
[2019-06-23] MEDS: NEURONTIN PO SCH ×3 (09:07→21:07)
[2019-06-23] MEDS: CARDIZEM PO SCH ×2 (09:07→21:07)
[2019-06-23] MEDS: ENTRESTO 24 MG-26 MG TABLET PO SCH ×2 (09:07→21:07)
[2019-06-23] MEDS: ATIVAN PO PRN ×2 (09:16→15:35)
[2019-06-23] MEDS: DOXY-100 100 MG in SODIUM CHLORIDE 100 ML IV SCH ×2 (10:08→21:06)
[2019-06-23] MEDS: XOPENEX 1.25 MG NEB SCH ×2 (14:05→19:45)
[2019-06-23] MEDS: COUMADIN PO SCH (17:39)
[2019-06-23] MEDS: TRIGLIDE PO SCH (21:07)
[2019-06-23] MEDS: ARICEPT PO SCH (21:07)
[2019-06-24] MEDS: XOPENEX 1.25 MG NEB SCH ×3 (04:50→19:20)
[2019-06-24] MEDS: ULTRAM PO SCH ×3 (05:31→16:59)
[2019-06-24] MEDS: LANOXIN PO SCH (08:45)
[2019-06-24] MEDS: ASPIRIN CHEWABLE PO SCH (08:46)
[2019-06-24] MEDS: PREDNISONE PO SCH (08:46)
[2019-06-24] MEDS: K-DUR PO SCH (08:47)
[2019-06-24] MEDS: CRESTOR PO SCH (08:47)
[2019-06-24] MEDS: CARDIZEM PO SCH ×2 (08:47→20:21)
[2019-06-24] MEDS: NEURONTIN PO SCH ×3 (08:47→20:22)
[2019-06-24] MEDS: ENTRESTO 24 MG-26 MG TABLET PO SCH ×2 (08:47→20:21)
[2019-06-24] MEDS: NAMENDA PO SCH ×2 (08:48→20:22)
[2019-06-24] MEDS: DOXY-100 100 MG in SODIUM CHLORIDE 100 ML IV SCH ×2 (08:48→20:21)
[2019-06-24] MEDS ORDERED: LASIX TAB PO SCH (09:00)
--- NOTE | 2019-06-24 09:00 | PCM.PROG ---
Attending Provider: ATTENDING PROVIDER: Dr. LUCILA ZHAO This patient is seen with Maria Teresa Arroyo, Nurse Practitioner. DATE OF SERVICE: 06/24/19 SUBJECTIVE: This 83 year old /WHITE M was hospitalized 06/21/19. The patient is doing well this morning. He is less short of breath. Leg edema is slightly worse. Coughing is improving. REVIEW OF SYSTEMS: CONSTITUTIONAL: No night sweats. No fatigue, malaise, lethargy. No fever or chills. Weakness. HEENT: Eyes: No visual changes. No eye pain. No eye discharge. ENT: No runny nose. No epistaxis. No sinus pain. No odynophagia. No congestion. RESPIRATORY: Cough, no congestion. No hemoptysis. No shortness of breath. CARDIOVASCULAR: No angina symptoms. No CHF symptoms. No atypical chest pain for CAD. No palpitations. No orthopnea.. GASTROINTESTINAL: No abdominal pain. No nausea or vomiting. No diarrhea or constipation. No hematemesis. No hematochezia. GENITOURINARY: No urgency. No frequency. No dysuria. No hematuria. No obstructive symptoms. No discharge. No pain. No significant abnormal bleeding. MUSCULOSKELETAL: No musculoskeletal pain; no joint swelling. Leg edema. NEUROLOGICAL: Awake, alert, oriented to time, place and person. No headache. No neck pain. No syncope. No seizures. No dizziness. PSYCHIATRIC: Not anxious. No depression. No suicidal thoughts. No homicidal thoughts. SKIN: No rash. No lesions. No wounds. ENDOCRINE: No unexplained weight loss. No weight gain. HEMATOLOGIC/LYMPHATIC: No anemia. No purpura. No petechiae. No prolonged or excessive bleeding. No palpable lymph nodes. PHYSICAL EXAMINATION: GENERAL: The patient is awake, alert and oriented, lying in bed in no distress. VITAL SIGNS: Temperature 97.6 F, Pulse 99, Respiratory Rate 16, BP 127/80, Pulse Ox 100% HEENT: Head normocephalic, atraumatic. Eyes: Extraocular muscles are intact. Pupils are equal, round and reactive to light and accommodation. Ears: No lesions. Nose appeared normal. Throat: No exudate or erythema. NECK: Supple. No JVD, no carotid bruit. No lymphadenopathy or thyromegaly. LUNGS: Diminished breath sounds. Clear to auscultation. Percussion note normal. Chest symmetrical. HEART: S1, S2, no S3. No murmurs. No cyanosis or clubbing. No ascites. Pulses: Dorsalis pedis and posterior tibial pulses +1 to +2 both sides. ABDOMEN: Soft. Non-tender. Bowel sounds active. No CVA tenderness. No mass felt. EXTREMITIES: Trace bilateral leg edema. Full range of motion of all extremities, equal. NEUROLOGIC: No focal deficit. Cranial nerves II through XII are grossly intact. No headache, no double vision or headache. SKIN: Not dry. Intact. Turgor-normal. LYMPHATIC: No palpable lymph nodes/no lymphedema. MUSCULOSKELETAL: Normal joints with no swelling. Muscle tone is normal. LAB REVIEW: 06/24/19 04:50 06/24/19 04:50 06/24/19 04:50: Sodium 136.1, Potassium 4.67, Chloride 99.8, Carbon Dioxide 31.6 H, Anion Gap 9.37, BUN 38.0 H, Creatinine 1.33 H, Estimated GFR (MDRD) 52.00, BUN/Creatinine Ratio 28.57, Glucose 116.7 H, Calcium 8.97, Total Bilirubin 0.48, AST 18.9, ALT 16.2, Alkaline Phosphatase 46.0 L, Total Protein 6.03 L, Albumin 3.47 L, Globulin 2.56, Albumin/Globulin Ratio 1.35 06/24/19 04:50: WBC 9.64, RBC 5.74, Hgb 11.4 L, Hct 40.6 L, MCV 70.7 L, MCH 19.9 L, MCHC 28.1 L, RDW Coeff of Lynda 20.3 H, Plt Count 264, Immature Gran % (Auto) 0.7, Neut % (Auto) 84.2, Lymph % (Auto) 6.1 L, [place] % (Auto) 8.9, Eos % (Auto) 0.0, Baso % (Auto) 0.1, Immature Gran # (Auto) 0.1, Neut # (Auto) 8.1 H, Lymph # (Auto) 0.6, [place] # (Auto) 0.9, Eos # (Auto) 0.0, Baso # (Auto) 0.0, Hypochromasia 1+, Anisocytosis 1+, Microcytosis 1+ 06/24/19 04:50: PT 17.1 H, INR 1.80 ASSESSMENT: Please see below. 1. Bilateral basilar pneumonia 2. Atrial fibrillation 3. Possible early left ventricular failure 4. Dementia with behavioral disturbances 5. Acute bronchitis with blood tinge sputum 6. COPD PLAN: 1. Continue IV antibiotics 2. Digoxin 0.125mg PO daily 5 days a week. 3. Resume Lasix 40mg daily Plan and coordination of the patient's care discussed in the presence of Risk Control Director and nurse. SCRIBED BY: Michael THOMPSON scribed while in presence of service performed by Dr. Zhao/Maria Teresa Arroyo APRN on 06/24/19 ([id number])
--- NOTE | 2019-06-24 09:49 | PN ---
DATE OF SERVICE: 06/22/19 SUBJECTIVE: 83 year old white male hospitalized yesterday with cough, congestion, blood tinge sputum. The patient on CT scan of the chest and chest x-ray with BNP of 7,060 and pneumonitis along with possibility of left ventricular failure. The patient has cardiomyopathy. The patient hasn't been taking his medications as prescribed in fact last time he was hospitalized a few days ago he insisted on going home and was discharged home with steroids and antibiotics. REVIEW OF SYSTEMS: CONSTITUTIONAL: No night sweats. No fatigue, malaise, lethargy. No fever or chills. HEENT: Eyes: No visual changes. No eye pain. No eye discharge. ENT: No runny nose. No epistaxis. No sinus pain. No sore throat. No odynophagia. No congestion. RESPIRATORY: No cough, no congestion. No hemoptysis. Shortness of breath with exertion. CARDIOVASCULAR: No angina symptoms. No CHF symptoms. No atypical chest pain for CAD. No palpitations. No PND. No orthopnea. GASTROINTESTINAL: No abdominal pain. No nausea or vomiting. No diarrhea or constipation. No hematemesis. No hematochezia. GENITOURINARY: No urgency. No frequency. No dysuria. No hematuria. No obstructive symptoms. No discharge. No pain. No significant abnormal bleeding. MUSCULOSKELETAL: No musculoskeletal pain; no joint swelling. NEUROLOGICAL: No headache. No neck pain. No syncope. No seizures. No dizziness. Confused at times. PSYCHIATRIC: Not anxious. No depression. No suicidal thoughts. No homicidal thoughts. SKIN: No rash. No lesions. No wounds. ENDOCRINE: No unexplained weight loss. No weight gain. HEMATOLOGIC/LYMPHATIC: No anemia. No purpura. No petechiae. No prolonged or excessive bleeding. No palpable lymph nodes. PHYSICAL EXAMINATION: VITAL SIGNS: Temperature 97.7, pulse 100, respiratory rate 22, blood pressure 108/71 and pulse ox 92% on 2 liters. HEENT: Head normocephalic, atraumatic. Eyes: Extraocular muscles are intact. Pupils are equal, round and reactive to light and accommodation. Ears: No lesions. Nose appeared normal. Throat: No exudate or erythema. NECK: Supple. No JVD, no carotid bruit. No lymphadenopathy or thyromegaly. LUNGS: Decreased breath sounds with few crepitations. Clear to auscultation. Percussion note normal. Chest symmetrical. HEART: S1, S2, no S3. No murmurs. No cyanosis or clubbing. No ascites. Pulses: Dorsalis pedis and posterior tibial pulses +1 to +2 bilaterally. ABDOMEN: Soft. Nontender. Bowel sounds active. No CVA tenderness. No mass felt. EXTREMITIES: +1 pitting edema. Full range of motion of all extremities, equal. NEUROLOGIC: No focal deficit. Cranial nerves II through XII are grossly intact. No headache, no double vision or headache. SKIN: Not dry. Intact. Turgor - normal. LYMPHATIC: No palpable lymph nodes/no lymphedema. MUSCULOSKELETAL: Normal joints with no swelling. Muscle tone is normal. LABS: Hgb 11.1, hct 39, WBC 6,100 normal differential, creatinine 1.4, BUN 42, potassium 4.2 ASSESSMENT: 1. Acute pneumonitis 2. Congestive heart failure 3. Hypertension 4. Dementia PLAN: 1. Bumex IV QAM 2. 1 cc Decadron today and tomorrow morning 3. Daily INR 4. Continue antibiotics 5. NEBS treatment 6. Atrial blood gasses on room air tomorrow afternoon CONDITION: Stable PROGNOSIS: Poor. 2. 3. TIME SPENT: More than 30 minutes. Plan and coordination of the patient's care discussed in the presence of nurse. LAKESHIA
[2019-06-24] MEDS: ROCEPHIN 1 GM/50 ML D5W 1 GM/50 ML BAG IV SCH (11:45)
--- NOTE | 2019-06-24 11:51 | HP ---
DATE OF SERVICE: 06/21/19 REASON FOR HOSPITALIZATION/HISTORY OF PRESENT ILLNESS: 83 year old white male who presented to the emergency room complaining of cough, congestion and abdominal pain. PAST MEDICAL HISTORY: Chronic hip osteoarthritis Degenerative joint disease of the spine Atrial fibrillation on Coumadin Dementia with behavioral disturbances Anxiety CVA in 2007 Chronic kidney disease stage 3 Dyslipidemia History of diverticulosis Dilated hypertrophic cardiomyopathy Left ventricular failure Systolic congestive heart failure PAST SURGICAL HISTORY: Hemorrhoidectomy Cholecystectomy Right shoulder surgery REVIEW OF SYSTEMS: CONSTITUTIONAL: No night sweats. No fatigue, malaise, lethargy. No fever or chills. HEENT: Eyes: No visual changes. No eye pain. No eye discharge. ENT: No runny nose. No epistaxis. No sinus pain. No sore throat. No odynophagia. No ear pain. No congestion. RESPIRATORY: Cough with blood tinge sputum, no congestion. No hemoptysis. No shortness of breath. CARDIOVASCULAR: No angina symptoms. No CHF symptoms. No atypical chest pain for CAD. No palpitations. No PND. No orthopnea. GASTROINTESTINAL: Abdominal pain. No nausea or vomiting. No diarrhea or constipation. No hematemesis. No hematochezia. GENITOURINARY: No urgency. No frequency. No dysuria. No hematuria. No obstructive symptoms. No discharge. No pain. No significant abnormal bleeding. MUSCULOSKELETAL: No musculoskeletal pain. No joint swelling. No arthritis. NEUROLOGICAL: No headache. No neck pain. No syncope. No seizures. No dizziness. PSYCHIATRIC: Not anxious. No depression. No suicidal thoughts. No homicidal thoughts. SKIN: No rash. No lesions. No wounds. ENDOCRINE: No unexplained weight loss. No weight gain. HEMATOLOGIC/LYMPHATIC: No anemia. No purpura. No petechiae. No prolonged or excessive bleeding. No palpable lymph nodes. PERSONAL/FAMILY/SOCIAL HISTORY: Lives at home with his . He does not drive. He does need assistance with ADL's. Nonsmoker. No alcohol or illicit drug use. MEDICATIONS: Donepezil 10mg PO bedtime Namenda 10mg Po twice a day Fenofibrate 160mg Po bedtime Aspirin 81mg PO daily Ativan 0.5mg PO PRN Fish Oil 1,000mg PO daily Neurontin 300mg PO three times a day Ultram 300mg PO Three times a day Entresto 49-51mg PO twice a day Diltiazem 90mg PO twice a day Crestor 20mg Po daily Coumadin 2mg PO QPM Lasix 40mg Po daily Prednisone 20mg PO as directed Klor-Con 20meq PO daily Keflex 500mg PO Q8 hours ALLERGIES: Shellfish derived PHYSICAL EXAMINATION: GENERAL: The patient is alert and oriented to person and place. VITAL SIGNS: Temperature 98.2, heart rate 83, respiratory rate 20, blood pressure 128/85 and pulse ox 92% on 2 liters. HEENT: Head normocephalic, atraumatic. Eyes: Extraocular muscles are intact. Pupils are equal, round and reactive to light and accommodation. Ears: No lesions. Nose appeared normal. Throat: No exudate or erythema. NECK: Supple. No JVD, no carotid bruit. No lymphadenopathy or thyromegaly. LUNGS: Diminished breath sounds bilaterally. Inspiratory and expiratory wheezing. Rhonchi greater on the right than the left. Percussion note normal. Chest symmetrical. HEART: S1, S2, no S3. No murmur. No cyanosis or clubbing. No ascites. Pulses: Dorsalis pedis and posterior tibial pulses +1 to +2 bilaterally. ABDOMEN: Soft. Nontender. Bowel sounds active. No CVA tenderness. No mass felt. EXTREMITIES: Trace leg edema. Full range of motion of all extremities, equal. NEUROLOGIC: No focal deficit. Cranial nerves II through XII are grossly intact. No headache, no double vision or headache. SKIN: Not dry. Intact. Turgor - normal. LYMPHATIC: No palpable lymph nodes/no lymphedema. MUSCULOSKELETAL: Normal joints with no swelling. Muscle tone is normal. LABS: Chest CT shows bibasilar infiltrates consistent with pneumonia. WBC 8.2, hgb 11.8, Hct 41.7, plt count 244, sodium 141, potassium 4.3, BUN 43, creatinine 1.61, glucose 101. Urine is normal. BNP 7,060, lipase 332, ABG on room air O2 saturation 88, pH 7.425, pCo2 39, Po2 53, bicarb 26.1, total CO2 27. ASSESSMENT: 1. Acute respiratory failure 2. Acute bronchitis with blood tinged sputum 3. COPD 4. Left ventricular failure 5. Acute on chronic renal failure 6. Atrial fibrillation 7. History of CVA 8. Diverticulosis PLAN: 1. We will admit 2. Routine telemetry orders 3. CBC and CMP, INR daily 4. Oxygen at 1-2 liters 5. Nasal canula 6. Repeat ABGs in 2 hours after oxygen 7. Start Rocephin 1 gram IV daily 8. Decadron 1cc 4mg IM daily 9. Continue home medications 10.Routine telemetry orders 11.Normal saline at 75 cc an hour for 24 hours 12.Bumex 1mg IV daily 13.Regular diet Will follow closely. TIME SPENT: More than 70 minutes. MTDD
--- NOTE | 2019-06-24 13:52 | PN ---
DATE OF SERVICE: 06/21/19 ADMIT NOTE SUBJECTIVE: The patient was brought to the emergency room with cough, congestion and yellowish sputum production which was bloody tinged. The patient has dilated cardiomyopathy with low ejection fraction. The patient has chronic cough with blood tinged sputum for past several months. He has declined to go to pulmonary physician. The patient is going to be hospitalized with IV antibiotics, steroids and IV Lasix. He has hypoxemia and respiratory failure. Oxygen supplements will be given. He is going to be on telemetry. Prognosis: guarded. The patient has a lot of other medical problems like dementia, severe dyslipidemia and history of CVA. TIME SPENT: More than 30 minutes. Plan and coordination of the patient's care discussed in the presence of nurse. LAKESHIA
[2019-06-24] MEDS: COUMADIN PO SCH (16:58)
[2019-06-24] MEDS: ATIVAN PO PRN (18:21)
[2019-06-24] MEDS: TRIGLIDE PO SCH (20:22)
[2019-06-24] MEDS: ARICEPT PO SCH (20:22)
[2019-06-25] MEDS: ULTRAM PO SCH ×4 (01:42→17:29)
[2019-06-25] MEDS: XOPENEX 1.25 MG NEB SCH ×3 (04:51→20:25)
[2019-06-25] MEDS: LASIX TAB PO SCH (05:44)
--- NOTE | 2019-06-25 09:09 | PCM.PROG ---
Attending Provider: ATTENDING PROVIDER: Dr. LUCILA ZHAO This patient is seen with Maria Teresa Arroyo, Nurse Practitioner. DATE OF SERVICE: 06/25/19 SUBJECTIVE: This 83 year old /WHITE M was hospitalized 06/21/19. His cough has improved. Less anxious and more alert today. Leg edema improved. Still feeling weak. REVIEW OF SYSTEMS: CONSTITUTIONAL: No night sweats. No fatigue, malaise, lethargy. No fever or chills. Weakness. HEENT: Eyes: No visual changes. No eye pain. No eye discharge. ENT: No runny nose. No epistaxis. No sinus pain. No odynophagia. No congestion. RESPIRATORY: Cough, no congestion. No hemoptysis. No shortness of breath. CARDIOVASCULAR: No angina symptoms. No CHF symptoms. No atypical chest pain for CAD. No palpitations. No orthopnea.. GASTROINTESTINAL: No abdominal pain. No nausea or vomiting. No diarrhea or constipation. No hematemesis. No hematochezia. GENITOURINARY: No urgency. No frequency. No dysuria. No hematuria. No obstructive symptoms. No discharge. No pain. No significant abnormal bleeding. MUSCULOSKELETAL: No musculoskeletal pain; no joint swelling. NEUROLOGICAL: Awake, alert, oriented to time, place and person. No headache. No neck pain. No syncope. No seizures. No dizziness. PSYCHIATRIC: Anxious. No depression. No suicidal thoughts. No homicidal thoughts. SKIN: No rash. No lesions. No wounds. ENDOCRINE: No unexplained weight loss. No weight gain. HEMATOLOGIC/LYMPHATIC: No anemia. No purpura. No petechiae. No prolonged or excessive bleeding. No palpable lymph nodes. PHYSICAL EXAMINATION: GENERAL: The patient is awake, alert and oriented, lying in bed in no distress. VITAL SIGNS: Temperature 97.7 F, Pulse 106, Respiratory Rate 20, BP 122/77, Pulse Ox 99% HEENT: Head normocephalic, atraumatic. Eyes: Extraocular muscles are intact. Pupils are equal, round and reactive to light and accommodation. Ears: No lesions. Nose appeared normal. Throat: No exudate or erythema. NECK: Supple. No JVD, no carotid bruit. No lymphadenopathy or thyromegaly. LUNGS: Diminished breath sounds. Clear to auscultation. Percussion note normal. Chest symmetrical. HEART: S1, S2, no S3. No murmurs. Irregular heart rate. No cyanosis or clubbing. No ascites. Pulses: Dorsalis pedis and posterior tibial pulses +1 to +2 both sides. ABDOMEN: Soft. Non-tender. Bowel sounds active. No CVA tenderness. No mass felt. EXTREMITIES: No leg edema. Full range of motion of all extremities, equal. NEUROLOGIC: No focal deficit. Cranial nerves II through XII are grossly intact. No headache, no double vision or headache. SKIN: Not dry. Intact. Turgor-normal. LYMPHATIC: No palpable lymph nodes/no lymphedema. MUSCULOSKELETAL: Normal joints with no swelling. Muscle tone is normal. LAB REVIEW: 06/25/19 05:04 06/25/19 05:04 06/25/19 05:04: Sodium 138.9, Potassium 4.50, Chloride 100.3, Carbon Dioxide 31.5 H, Anion Gap 11.60, BUN 35.2 H, Creatinine 1.59 H, Estimated GFR (MDRD) 42.00, BUN/Creatinine Ratio 22.13, Glucose 102.5, Calcium 9.24, Total Bilirubin 0.48, AST 22.7, ALT 18.1, Alkaline Phosphatase 56.5, Total Protein 6.53, Albumin 3.86, Globulin 2.67, Albumin/Globulin Ratio 1.44 06/25/19 05:04: WBC 14.47 H, RBC 6.34 H, Hgb 12.4 L, Hct 45.5, MCV 71.8 L, MCH 19.6 L, MCHC 27.3 L, RDW Coeff of Lynda 21.1 H, Plt Count 318, Immature Gran % (Auto) 1.0, Neut % (Auto) 76.2, Lymph % (Auto) 11.7, [place] % (Auto) 10.6 H, Eos % (Auto) 0.3, Baso % (Auto) 0.2, Immature Gran # (Auto) 0.1, Neut # (Auto) 11.0 H, Lymph # (Auto) 1.7, [place] # (Auto) 1.5, Eos # (Auto) 0.1, Baso # (Auto) 0.0, Hypochromasia 1+, Anisocytosis 1+, Ovalocytes 1+ ASSESSMENT: Please see below. 1. Bilateral basilar pneumonia 2. Atrial fibrillation 3. Possible early left ventricular failure 4. Dementia with behavioral disturbances 5. Acute bronchitis with blood tinge sputum 6. COPD PLAN: 1. Continue IV antibiotics 2. Anticipate discharge home or Sunday. Plan and coordination of the patient's care discussed in the presence of Straddle Carrier Operator and nurse. SCRIBED BY: Verna THOMPSONist scribed while in presence of service performed by Dr. Zhao/Maria Teresa Arroyo APRN on 06/25/19 ([id number])
[2019-06-25] MEDS: NEURONTIN PO SCH ×3 (09:21→21:03)
[2019-06-25] MEDS: NAMENDA PO SCH ×2 (09:21→21:04)
[2019-06-25] MEDS: ASPIRIN CHEWABLE PO SCH (09:21)
[2019-06-25] MEDS: K-DUR PO SCH (09:22)
[2019-06-25] MEDS: ROCEPHIN 1 GM/50 ML D5W 1 GM/50 ML BAG IV SCH (09:22)
[2019-06-25] MEDS: PREDNISONE PO SCH (09:22)
[2019-06-25] MEDS: CARDIZEM PO SCH ×2 (09:22→21:03)
[2019-06-25] MEDS: ENTRESTO 24 MG-26 MG TABLET PO SCH ×2 (09:22→21:03)
[2019-06-25] MEDS: ATIVAN PO PRN ×2 (09:22→15:51)
[2019-06-25] MEDS: CRESTOR PO SCH (09:22)
[2019-06-25] MEDS: DOXY-100 100 MG in SODIUM CHLORIDE 100 ML IV SCH ×2 (10:16→21:03)
[2019-06-25] MEDS: FLOMAX PO SCH (10:16)
[2019-06-25] MEDS: LANOXIN PO SCH (10:16)
[2019-06-25] MEDS: COUMADIN PO SCH (17:30)
[2019-06-25] MEDS: TRIGLIDE PO SCH (21:03)
[2019-06-25] MEDS: ARICEPT PO SCH (21:03)
[2019-06-25 22:01] VITALS: TEMP 97.5
[2019-06-26] MEDS: ULTRAM PO SCH ×2 (00:32→05:29)
[2019-06-26] MEDS: XOPENEX 1.25 MG NEB SCH (04:45)
[2019-06-26 05:22] VITALS: BP 117/72
[2019-06-26] MEDS: LASIX TAB PO SCH (05:30)
[2019-06-26] MEDS: FLOMAX PO SCH (09:08)
[2019-06-26] MEDS: CRESTOR PO SCH (09:08)
[2019-06-26] MEDS: ENTRESTO 24 MG-26 MG TABLET PO SCH (09:08)
[2019-06-26] MEDS: CARDIZEM PO SCH (09:09)
[2019-06-26] MEDS: K-DUR PO SCH (09:09)
[2019-06-26] MEDS: NAMENDA PO SCH (09:09)
[2019-06-26] MEDS: NEURONTIN PO SCH (09:10)
[2019-06-26] MEDS: LANOXIN PO SCH (09:10)
[2019-06-26] MEDS: PREDNISONE PO SCH (09:10)
[2019-06-26] MEDS: ROCEPHIN 1 GM/50 ML D5W 1 GM/50 ML BAG IV SCH (09:14)
[2019-06-26] MEDS: ASPIRIN CHEWABLE PO SCH (09:47)
--- NOTE | 2019-06-26 10:09 | CM.DICTOOL ---
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, STAGE 3 HYPERCHOLESTEROLEMIA DIVERTICULOSIS DILATED HYPERTROPHIC ECHOCARDIOGRAM: DEC, 2018 LVEF 34% MODERATE LVH ENLARGED LEFT ATRIAL CAVITY HEMORRHOID SURGERY CHOLECYSTECTOMY RIGHT SHOULDER SURGERY LAST VITALS Temp Pulse Resp BP Pulse Ox 97.5 F L 88 18 117/72 99 06/26/19 05:19 06/26/19 05:19 06/26/19 05:19 06/26/19 05:19 06/26/19 05:19 TAKE THESE MEDICATIONS AT HOME Digoxin (Lanoxin) 125 mcg PO MOWEDFR [facility] Last Admin: 06/26/19 09:16 Dose: 125 mcg Documented by: Diltiazem HCl (Cardizem) 90 mg PO BID [facility] Last Admin: 06/26/19 09:03 Dose: 90 mg Documented by: Donepezil HCl (Aricept) 10 mg PO BEDTIME [facility] Last Admin: 06/25/19 21:03 Dose: 10 mg Documented by: Fenofibrate (Triglide) 160 mg PO BEDTIME [facility] Last Admin: 06/25/19 21:03 Dose: 160 mg Documented by: Furosemide (Lasix Tab) 40 mg PO QDAC [facility] Last Admin: 06/26/19 05:30 Dose: 40 mg Documented by: Gabapentin (Neurontin) 300 mg PO TID [facility] Last Admin: 06/26/19 09:03 Dose: 300 mg Documented by: NEB TREATMENT TID [facility] Last Admin: 06/26/19 04:45 Dose: 1.25 mg Documented by: Lorazepam (Ativan) 1 mg PO TID PRN PRN Reason: ANXIETY Last Admin: 06/25/19 15:51 Dose: 1 mg Documented by: Memantine (Namenda) 10 mg PO BID [facility] Last Admin: 06/26/19 09:04 Dose: 10 mg Documented by: Potassium Chloride (K-Dur) 20 meq PO DAILYWM [facility] Last Admin: 06/26/19 09:22 Dose: 20 meq Documented by: Prednisone (Prednisone) 10 mg PO DAILYWM [facility] Stop: 06/28/19 10:00 Last Admin: 06/25/19 09:22 Dose: 10 mg Documented by: Rosuvastatin Calcium (Crestor) 20 mg PO DAILY [facility] Last Admin: 06/26/19 09:22 Dose: 20 mg Documented by: Sacubitril/Valsartan (Entresto 49 Mg-51 Mg Tablet) 1 PO BID [facility] Last Admin: 06/26/19 09:03 Dose: 1 each Documented by: [place] 3 fatty acids JENNIFER DAILY LAST ADMIN: Tamsulosin HCl (Flomax) 0.4 mg PO DAILY [facility] Last Admin: 06/26/19 09:00 Dose: 0.4 mg Documented by: Tramadol HCl (Ultram) 50 mg PO Q6HR [facility] Last Admin: 06/26/19 05:29 Dose: 50 mg Documented by: Warfarin Sodium (Coumadin) 2 mg PO QPM [facility] Last Admin: 06/25/19 17:30 Dose: 2 mg Documented by: Doxycycline 50 mg BID [facility] FOR 10 DAYS ALLERGIES shellfish derived Adverse Reaction (Verified 06/16/19 16:44) DISCONTINUED MEDICATIONS KEFLEX PREDNISONE 20 MG ASA NEW PRESCRIPTIONS: DOXYCYCLINE 50 MG BID FOR 10 DAYS PREDNISONE 10 MG DAILY FOR ADDITIONAL 10 DAYS (START 06-29) LANOXIN 0.125 MG THREE (3 DAYS) PER WEEK SMOKING: NOT APPLICABLE DISEASE SPECIFIC EDUCATION: REDUCE SALT INTAKE ELEVATE LEGS WHEN SITTING ACTIVITY LAB REVIEW: 06/26/19 05:35 06/26/19 05:35 06/26/19 05:35: NT-Pro-B Natriuret Pep 3130.000 H 06/26/19 05:35: PT 17.5 H, INR 1.85 06/26/19 05:35: Sodium 138.2, Potassium 4.59, Chloride 100.0, Carbon Dioxide 33.9 H, Anion Gap 8.89, BUN 35.4 H, Creatinine 1.45 H, Estimated GFR (MDRD) 47.00, BUN/Creatinine Ratio 24.41, Glucose 94.8, Calcium 8.87, Total Bilirubin 0.51, AST 23.7, ALT 18.0, Alkaline Phosphatase 53.1 L, Total Protein 6.20 L, Albumin 3.65, Globulin 2.55, Albumin/Globulin Ratio 1.43 06/26/19 05:35: WBC 11.33 H, RBC 6.25 H, Hgb 12.2 L, Hct 44.8, MCV 71.7 L, MCH 19.5 L, MCHC 27.2 L, RDW Coeff of Lynda 20.9 H, Plt Count 268, Immature Gran % (Auto) 1.5, Neut % (Auto) 70.3, Lymph % (Auto) 13.4, [place] % (Auto) 12.9 H, Eos % (Auto) 1.7, Baso % (Auto) 0.2, Immature Gran # (Auto) 0.2, Neut # (Auto) 8.0 H, Lymph # (Auto) 1.5, [place] # (Auto) 1.5, Eos # (Auto) 0.2, Baso # (Auto) 0.0, Polychromasia 1+, Hypochromasia 1+, Poikilocytosis 2+, Anisocytosis 3+, Microcytosis 3+, Target Cells 1+, RBC Morph Comment PLAN: DISCHARGE HOME WITH SPOUSE DIET: HEART HEALTHY (REDUCE SALT) ACTIVITY: STAY ACTIVE AT HOME; WALK SHORT DISTANCES FREQUENTLY ELEVATE LEGS WHEN SITTING CONTINUE TO USE OXYGEN AT NIGHT AND NEEDED CONTINUE NEBULIZER TREATMENTS AT LEAST 3 TIMES PER DAY AN APPOINTMENT IS SCHEDULED WITH DR. ZHAO/FAISAL BACON APRN ON June AT 9 AM CODE STATUS: DO NOT RESUSCITATE MR. CARABALLO IS ALERT TO PERSON, PLACE AND SITUATION. HE IS AWARE OF PLANS FOR DISCHARGE HOME. HE IS AGREEABLE AND PLEASED. THE IS PRESENT AND SHE IS AGREEABLE TO PLANS FOR DISCHARGE. MR. CARABALLO IS FORGETFUL, ANXIOUS AND TEARFUL AT TIMES. HE IS COOPERATIVE. MEAL INTAKES ARE GOOD AT 75-100% PLUS SNACKS D URING THE DAY. MR. CARABALLO FEEDS HIMSELF WITHOUT DIFFICULTY. HE IS AMBULATORY WITH USE OF A ROLLING WALKER OR PERSONAL CANE AND USUALLY ACCOMPANIED BY HIS . HE DOES NOT REQUIRE ASSISTANCE WITH AMBULATION OR TRANSFERS, BUT CAN BE UNSTEADY AT TIMES. MR. CARABALLO REQUIRES MINIMAL ASSISTANCE WITH PERSONAL CARE AND DRESSING. HE IS CONTINENT OF BOWEL AND BLADDER, BUT REPORTS SENSE OF URGENCY WITH URINATION. SKIN IS IN GOOD CONDITION, BUT REDNESS IS REPORTED TO THE SACRAL AREA FROM SITTING. MD FAISAL ZHU APRN
[2019-06-26] MEDS: DOXY-100 100 MG in SODIUM CHLORIDE 100 ML IV SCH (11:02)
--- NOTE | 2019-06-26 11:32 | PN ---
DATE OF SERVICE: 06/23/19 SUBJECTIVE: The patient was seen and examined with the nurse practitioner. He was seen later on. The patient's cough and congestion much less. No blood-tinged sputum. Breathing better. Appetite seems to have improved. PHYSICAL EXAMINATION: HEENT: Head normocephalic, atraumatic. Eyes: Extraocular muscles are intact. Pupils are equal, round and reactive to light and accommodation. Ears: No lesions. Nose appeared normal. Throat: No exudate or erythema. NECK: Supple. No JVD, no carotid bruit. No lymphadenopathy or thyromegaly. LUNGS: Good air entry with dry crepitation. Percussion note normal. Chest symmetrical. HEART: S1, S2, no S3. No murmurs. No cyanosis or clubbing. No ascites. Pulses: Dorsalis pedis and posterior tibial pulses +1 to +2 bilaterally. ABDOMEN: Soft. Nontender. Bowel sounds active. No CVA tenderness. No mass felt. EXTREMITIES: No edema. Full range of motion of all extremities, equal. NEUROLOGIC: No focal deficit. Cranial nerves II through XII are grossly intact. No headache, no double vision or headache. SKIN: Not dry. Intact. Turgor - normal. LYMPHATIC: No palpable lymph nodes/no lymphedema. MUSCULOSKELETAL: Normal joints with no swelling. Muscle tone is normal. ASSESSMENT: 1. Emotionally, the patient is the same. Condition is improving. 2. Bronchitis improving. I don't think the patient had LVF but again the patient is being treated for it. CONDITION: Stable. TIME SPENT: More than 30 minutes. Plan and coordination of the patient's care discussed in the presence of nurse. LAKESHIA
--- NOTE | 2019-06-26 11:36 | PN ---
DATE OF SERVICE: 06/24/19 SUBJECTIVE: The patient was seen and examined with the nurse practitioner. The patient's condition has improved. He is coughing much less. No blood-tinged sputum or yellowish sputum anymore. REVIEW OF SYSTEMS: CONSTITUTIONAL: No night sweats. No fatigue, malaise, lethargy. No fever or chills. HEENT: Eyes: No visual changes. No eye pain. No eye discharge. ENT: No runny nose. No epistaxis. No sinus pain. No sore throat. No odynophagia. No congestion. RESPIRATORY: Cough is less. No hemoptysis. No shortness of breath. CARDIOVASCULAR: No angina symptoms. No CHF symptoms. No atypical chest pain for CAD. No palpitations. No PND. No orthopnea. GASTROINTESTINAL: No abdominal pain. No nausea or vomiting. No diarrhea or constipation. No hematemesis. No hematochezia. GENITOURINARY: No urgency. No frequency. No dysuria. No hematuria. No obstructive symptoms. No discharge. No pain. No significant abnormal bleeding. MUSCULOSKELETAL: No musculoskeletal pain; no joint swelling. NEUROLOGICAL: No headache. No neck pain. No syncope. No seizures. No dizziness. PSYCHIATRIC: Not anxious. No depression. No suicidal thoughts. No homicidal thoughts. SKIN: No rash. No lesions. No wounds. ENDOCRINE: No unexplained weight loss. No weight gain. HEMATOLOGIC/LYMPHATIC: No anemia. No purpura. No petechiae. No prolonged or excessive bleeding. No palpable lymph nodes. PHYSICAL EXAMINATION: HEENT: Head normocephalic, atraumatic. Eyes: Extraocular muscles are intact. Pupils are equal, round and reactive to light and accommodation. Ears: No lesions. Nose appeared normal. Throat: No exudate or erythema. NECK: Supple. No JVD, no carotid bruit. No lymphadenopathy or thyromegaly. LUNGS: Decreased breath sounds with good air entry with dry crepitations bilaterally. Percussion note normal. Chest symmetrical. HEART: S1, S2, no S3. No murmurs. No cyanosis or clubbing. No ascites. Pulses: Dorsalis pedis and posterior tibial pulses +1 to +2 bilaterally. ABDOMEN: Soft. Nontender. Bowel sounds active. No CVA tenderness. No mass felt. EXTREMITIES: No edema. Full range of motion of all extremities, equal. NEUROLOGIC: No focal deficit. Cranial nerves II through XII are grossly intact. No headache, no double vision or headache. SKIN: Not dry. Intact. Turgor - normal. LYMPHATIC: No palpable lymph nodes/no lymphedema. MUSCULOSKELETAL: Normal joints with no swelling. Muscle tone is normal. ASSESSMENT: 1. Bronchitis is resolving. Doubt that the patient had LVF. CONDITION: Stable, improving. TIME SPENT: More than 30 minutes. Plan and coordination of the patient's care discussed in the presence of nurse. LAKESHIA
--- NOTE | 2019-06-26 11:42 | PN ---
DATE OF SERVICE: 06/25/19 SUBJECTIVE: The patient has been feeling better. The is present in the room. REVIEW OF SYSTEMS: CONSTITUTIONAL: No night sweats. No fatigue, malaise, lethargy. No fever or chills. HEENT: Eyes: No visual changes. No eye pain. No eye discharge. ENT: No runny nose. No epistaxis. No sinus pain. No sore throat. No odynophagia. No congestion. RESPIRATORY: Mild cough. No congestion. No hemoptysis. No shortness of breath. CARDIOVASCULAR: No angina symptoms. No CHF symptoms. No atypical chest pain for CAD. No palpitations. No PND. No orthopnea. GASTROINTESTINAL: No abdominal pain. No nausea or vomiting. No diarrhea or constipation. No hematemesis. No hematochezia. GENITOURINARY: No urgency. No frequency. No dysuria. No hematuria. No obstructive symptoms. No discharge. No pain. No significant abnormal bleeding. MUSCULOSKELETAL: No musculoskeletal pain; no joint swelling. NEUROLOGICAL: No headache. No neck pain. No syncope. No seizures. No dizziness. PSYCHIATRIC: Not anxious. No depression. No suicidal thoughts. No homicidal thoughts. SKIN: No rash. No lesions. No wounds. ENDOCRINE: No unexplained weight loss. No weight gain. HEMATOLOGIC/LYMPHATIC: No anemia. No purpura. No petechiae. No prolonged or excessive bleeding. No palpable lymph nodes. PHYSICAL EXAMINATION: HEENT: Head normocephalic, atraumatic. Eyes: Extraocular muscles are intact. Pupils are equal, round and reactive to light and accommodation. Ears: No lesions. Nose appeared normal. Throat: No exudate or erythema. NECK: Supple. No JVD, no carotid bruit. No lymphadenopathy or thyromegaly. LUNGS: Clear to auscultation. Percussion note normal. Chest symmetrical. HEART: Negative for CHF. S1, S2, no S3. No murmurs. No cyanosis or clubbing. No ascites. Pulses: Dorsalis pedis and posterior tibial pulses +1 to +2 bilaterally. ABDOMEN: Soft. Nontender. Bowel sounds active. No CVA tenderness. No mass felt. EXTREMITIES: No edema. Full range of motion of all extremities, equal. NEUROLOGIC: No focal deficit. Cranial nerves II through XII are grossly intact. No headache, no double vision or headache. SKIN: Not dry. Intact. Turgor - normal. LYMPHATIC: No palpable lymph nodes/no lymphedema. MUSCULOSKELETAL: Normal joints with no swelling. Muscle tone is normal. ASSESSMENT: 1. ACUTE BRONCHITIS TYPE SYMPTOMS, SUBSIDED. 2. NO SYMPTOMS OF CHF. PLAN: 1. The patient's condition is stable. Will discharge the patient home tomorrow. TIME SPENT: More than 30 minutes. The patient was seen and examined with the nurse practitioner. Plan and coordination of the patient's care discussed in the presence of nurse. LAKESHIA
--- NOTE | 2019-07-02 09:10 | PN ---
DATE OF SERVICE: 06/26/19 DISCHARGE NOTE SUBJECTIVE: 83 year old white male hospitalized with pneumonia and possibility of left ventricular failure. The patient was treated with IV Lasix and IV antibiotics Rocephin and Doxycycline. His condition has improved with breathing treatment and steroids along with antibiotics. His appetite is much better. His overall condition and overall mental status has improved. His is talkative and joking around, ready to go home. No distress. His oxygen saturation on room air is more than 90%. His respiratory failure seems to have resolved. REVIEW OF SYSTEMS: CONSTITUTIONAL: No night sweats. No fatigue, malaise, lethargy. No fever or chills. HEENT: Eyes: No visual changes. No eye pain. No eye discharge. ENT: No runny nose. No epistaxis. No sinus pain. No sore throat. No odynophagia. No congestion. RESPIRATORY: No cough, no congestion. No hemoptysis. No shortness of breath. CARDIOVASCULAR: No angina symptoms. No CHF symptoms. No atypical chest pain for CAD. No palpitations. No PND. No orthopnea. GASTROINTESTINAL: No abdominal pain. No nausea or vomiting. No diarrhea or constipation. No hematemesis. No hematochezia. GENITOURINARY: No urgency. No frequency. No dysuria. No hematuria. No obstructive symptoms. No discharge. No pain. No significant abnormal bleeding. MUSCULOSKELETAL: No musculoskeletal pain; no joint swelling. NEUROLOGICAL: No headache. No neck pain. No syncope. No seizures. No dizziness. PSYCHIATRIC: Not anxious. No depression. No suicidal thoughts. No homicidal thoughts. SKIN: No rash. No lesions. No wounds. ENDOCRINE: No unexplained weight loss. No weight gain. HEMATOLOGIC/LYMPHATIC: No anemia. No purpura. No petechiae. No prolonged or excessive bleeding. No palpable lymph nodes. PHYSICAL EXAMINATION: HEENT: Head normocephalic, atraumatic. Eyes: Extraocular muscles are intact. Pupils are equal, round and reactive to light and accommodation. Ears: No lesions. Nose appeared normal. Throat: No exudate or erythema. NECK: Supple. No JVD, no carotid bruit. No lymphadenopathy or thyromegaly. LUNGS: Decreased breath sounds with dry crepitation bilaterally usual. Clear to auscultation. Percussion note normal. Chest symmetrical. HEART: S1, S2, no S3. No murmurs. No cyanosis or clubbing. No ascites. Pulses: Dorsalis pedis and posterior tibial pulses +1 to +2 bilaterally. ABDOMEN: Soft. Nontender. Bowel sounds active. No CVA tenderness. No mass felt. EXTREMITIES: No edema. Full range of motion of all extremities, equal. NEUROLOGIC: No focal deficit. Cranial nerves II through XII are grossly intact. No headache, no double vision or headache. SKIN: Not dry. Intact. Turgor - normal. LYMPHATIC: No palpable lymph nodes/no lymphedema. MUSCULOSKELETAL: Normal joints with no swelling. Muscle tone is normal. ASSESSMENT: 1. Pneumonia clinically seems to have resolved 2. LVF seems to be under control PLAN: 1. Continue all the medication along with Lasix 2. Add Doxycycline 3. Lanoxin to be taken three days a day 4. Steroids will be given for 10 days CONDITION: Stable. TIME SPENT: More than 30 minutes. Plan and coordination of the patient's care discussed in the presence of nurse. LAKESHIA
--- NOTE | 2019-07-02 10:13 | DS ---
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 CONTINUE TO USE OXYGEN AT NIGHT AND NEEDED. CONTINUE NEBULIZER TREATMENTS AT LEAST 3 TIMES PER DAY. AN APPOINTMENT IS SCHEDULED WITH DR. ZHAO/FAISAL BACON APRN ON June AT 9 AM. CODE STATUS: DO NOT RESUSCITATE TAKE THESE MEDICATIONS AT HOME: Digoxin (Lanoxin) 125 mcg PO MOWEDFR JENNIFER Diltiazem HCl (Cardizem) 90 mg PO BID JENNIFER Donepezil HCl (Aricept) 10 mg PO BEDTIME JENNIFER Fenofibrate (Triglide) 160 mg PO BEDTIME JENNIFER Furosemide (Lasix Tab) 40 mg PO QDAC JENNIFER Gabapentin (Neurontin) 300 mg PO TID JENNIFER NEB TREATMENT TID JENNIFER Lorazepam (Ativan) 1 mg PO TID PRN Memantine (Namenda) 10 mg PO BID JENNIFER Potassium Chloride (K-Dur) 20 meq PO DAILYWM JENNIFER Prednisone (Prednisone) 10 mg PO DAILYWM JENNIFER Rosuvastatin Calcium (Crestor) 20 mg PO DAILY JENNIFER Sacubitril/Valsartan (Entresto 49 Mg-51 Mg Tablet) 1 PO BID JENNIFER [place] 3 fatty acids JENNIFER DAILY Tamsulosin HCl (Flomax) 0.4 mg PO DAILY JENNIFER Tramadol HCl (Ultram) 50 mg PO Q6HR JENNIFER Warfarin Sodium (Coumadin) 2 mg PO QPM JENNIFER Doxycycline 50 mg BID [facility] FOR 10 DAYS ALLERGIES: shellfish derived Adverse Reaction (Verified 06/16/19 16:44) DISCONTINUED MEDICATIONS: KEFLEX PREDNISONE 20 MG ASA NEW PRESCRIPTIONS: DOXYCYCLINE 50 MG BID FOR 10 DAYS PREDNISONE 10 MG DAILY FOR ADDITIONAL 10 DAYS (START 06-29) LANOXIN 0.125 MG THREE (3 DAYS) PER WEEK SMOKING: NOT APPLICABLE DISEASE SPECIFIC EDUCATION: REDUCE SALT INTAKE ELEVATE LEGS WHEN SITTING ACTIVITY DIET: HEART HEALTHY (REDUCE SALT) ACTIVITY: STAY ACTIVE AT HOME; WALK SHORT DISTANCES FREQUENTLY ELEVATE LEGS WHEN SITTING LABS: Hgb 12.2. hct 44, WBC 11,000 normal differential, creatinine 1.4, BUN 35, potassium 4.5 HOSPITAL COURSE: 83 year old white male hospitalized with pneumonia and possibility of LVF. The patient was treated with IV Lasix, IV antibiotics Rocephin and Doxycycline. The patient's condition has improved. The patient has very little sputum. No yellowish sputum noted. Still has a little bit blood tinged sputum off and on. The patient did not have any fever. Practically there are no symptoms of CHF right from the beginning but had probably some evidence of fluid overload. The patient's PRO BNP was 7,000 and at the time of discharge it was close to 3,000. The patient had echo done months ago with ejection fraction 35%. The patient's appetite has improved. The patient is going to be discharged on Lanoxin 0.125mg three days a week along with Doxycycline 50mg BID for 10 days and Prednisone BID for 10 days. The patient is on Coumadin and advised to continued INR was 1.85. His creatinine 1.4, BUN 35 which is more or less constant. The patient has dementia and he is somewhat unstable emotionally but during the stay he was more or less stable. The stayed in the room all the time. She is unable to take care of him at home and gets broken down mentally. At times she had declined to put him in the skilled nursing. In any case the patient will come back because of his noncompliance and also stubbornness not to take the medications as prescribed and also deteriorating of his general health. CONDITION: Stable. TIME SPENT: More than 60 minutes. MTDD
--- NOTE | 2019-07-02 10:16 | PN ---
06/21/19: Level 5 06/22/19: Intermediate 06/23/19: Intermediate 06/24/19: Intermediate 06/25/19: Intermediate 06/26/19: D as in discharge MTDD
== END 2019-06-26 10:50 | disposition home or self-care (01) | DRG 193 ==
LOC: ED 15:13 → MEDSURG B 16:59
PROVIDERS: ADMIT Internal Medicine; ATTEND Internal Medicine
DX: N18.3 Chronic kidney disease, stage 3 (moderate); I48.91 Unspecified atrial fibrillation; E78.00 Pure hypercholesterolemia, unspecified; R10.9 Unspecified abdominal pain; I10 Essential (primary) hypertension; I50.1 Left ventricular failure, unspecified; J18.9 Pneumonia, unspecified organism; J20.9 Acute bronchitis, unspecified; R07.81 Pleurodynia; R05 Cough; J44.9 Chronic obstructive pulmonary disease, unspecified; R06.00 Dyspnea, unspecified; I50.9 Heart failure, unspecified; R06.02 Shortness of breath; J96.00 Acute respiratory failure, unspecified whether with hypoxia or hypercapnia; F03.91 Unspecified dementia, unspecified severity, with behavioral disturbance; K57.90 Diverticulosis of intestine, part unspecified, without perforation or abscess without bleeding

== ENCOUNTER 2019-08-19 13:51 | Inpatient (IN) ==
--- NOTE | 2019-08-19 14:34 | ED.PDOC ---
General ED Provider: Dr. BALWINDER IZAGUIRRE Chief Complaint: Shortness of Air Stated Complaint: Increasing SOB. Hx COPD, Pneumonia and CHF Difficulty with Swallowing Time Seen by Physician: 14:15 Mode of Arrival: Wheelchair Information Source: Patient and Family Exam Limitations: Clinical condition Primary Care Provider: LUCILA SCOTT Nursing and Triage Documentation Reviewed and Agree: Yes Does patient meet sepsis criteria?: No System Inflammatory Response Syndrome: Not Applicable Sepsis Protocol: For patient's 13 years and over: Temp is 96.8 and below OR 101 and greater Pulse >90 BPM Resp >20/minute Acutely Altered Mental Status Are patient's symptoms suggestive of a new infection, such as: -Pneumonia -Skin, Soft Tissue -Endocarditis -UTI -Bone, Joint Infection -Implantable Device -Acute Abdominal Infection -Wound Infection -Meningitis -Blood Stream Catheter Infection -Unknown Cardiovascular Complaint Exam Chest Pain Complaint/Exam Onset: Gradual Duration: Dyspnea daily Symptoms Are: Worse Timing: Intermittent Initial Severity: Moderate Current Severity: Moderate Associated Signs and Symptoms: Reports Short of air and Calf swelling Related History: Reports Current ARBs, Current Ca Castaneda.Viola and Current Diuretic Related Surgical History: Reports None History of Healthcare-Acquired Pneumonia: Reports No AMI/ACS Risk Factors: Reports Sedentary and Dyslipidemia TAD Risk Factors: Reports Hypertension Pulmonary Embolism Risk Factors: Reports None Prior Care for this Complaint: Yes Recent Stress Test: Yes JVD Present: No Subcutaneous Emphysema Present: No Diminshed Breath Sounds: Yes Reproducible Chest Wall Pain: No Bilateral Pulses Present: Yes Differential Diagnoses: Pulmonary Edema and Other (Pneumonia) Review of Systems Review Of Systems Constitutional: Reports Malaise and Weakness Eyes: Reports No symptoms Ears, Nose, Mouth, Throat: Reports No symptoms Respiratory: Reports No symptoms Cardiac: Reports Edema, Irregular heart rate and Lightheadedness GI: Reports No symptoms : Reports No symptoms Musculoskeletal: Reports Back pain Skin: Reports No symptoms Neurological: Reports No symptoms Endocrine: Reports No symptoms Hematologic/Lymphatic: Reports No symptoms All Other Systems: Reviewed and Negative [facility] Medical History (Updated 08/20/19 @ 08:25 by FORREST CORNELIUS) Cancer (Acute) Congestive heart failure CVA (cerebral vascular accident) (Acute ~2017) Dementia (Acute) Hx of appendectomy (Acute) Hx of cholecystectomy (Acute) Hypertension (Acute) Social History Smoking and tobacco status: Never smoker Alcohol intake: never Substance use type: does not use History of recent travel: No Current gender identity: male Physical Exam Physical Exam Appearance: Ill-appearing and Obese Ill-appearing: Moderate Pain Distress: Mild Eyes: BRADLEY, EOMI and Conjunctiva clear ENT: Ears normal, Nose normal and Oropharynx normal Neck: Supple Respiratory: Airway patent, Breath sounds clear, Breath sounds diminished, Respirations nonlabored, Crackles, Rhonchi and Wheezes Cardiovascular: RRR, Pulses normal, No rub and No murmur GI/: Soft, Nontender, No masses, Bowel sounds normal and No Organomegaly Musculoskeletal: Normal strength, ROM intact, No edema and No calf tenderness Skin: Warm, Dry and Normal color Neurological: Sensation intact, Motor intact, Reflexes intact, Cranial nerves intact, Alert and Oriented Psychiatric: Affect appropriate, Mood appropriate and Anxious Interpretation Radiology Interpretation Radiology Interpretation By: Radiologist Exam Interpreted: Portable CXR Xray Comments: Pulm edema, poss atelectasis EKG Interpretation Time of EKG #1: 16:50 Rate: Normal Rhythm: Other (atrial fib) Ectopy: None Interpretation: atrial fib, lbbb Physician Notification Case Discussed Physician Notified: Dr Scott-discussed admisson -agreed Time of Notification: 16:45 Critical Care Note Critical Care Note Total Time (mins): 60 Comments: Authorized and Performed by:Balwinder Izaguirre DO Total critical care time: Approximately 30 minutes Due to a high probability of clinically significant, life threatening deterioration, the patient required my highest level of preparedness to intervene emergently and I personally spent this critical care time directly and personally managing the patient. This critical care time included obtaining a history; examining the patient; pulse oximetry; ordering and review of studies; arranging urgent treatment with development of a management plan; evaluation of patient's response to treatment; frequent reassessment; and, discussions with other providers. This critical care time was performed to assess and manage the high probability of imminent, life-threatening deterioration that could result in multi-organ failure. It was exclusive of separately billable procedures and treating other patients and teaching time. Please see MDM section and the rest of the note for further information on patient assessment and treatment. Course Course Hematology/Chemistry: 08/22/19 04:45 08/22/19 04:45 Orders, Labs, Meds: Lab Review 08/19/19 08/19/19 08/19/19 14:30 14:54 14:54 WBC 5.12 RBC 5.26 Hgb 10.6 L Hct 38.5 L MCV 73.2 L MCH 20.2 L MCHC 27.5 L RDW Coeff of Lynda 22.4 H Plt Count 169 Immature Gran % (Auto) 0.2 Neut % (Auto) 74.5 Lymph % (Auto) 12.9 Crisp % (Auto) 10.0 Eos % (Auto) 1.6 Baso % (Auto) 0.8 Immature Gran # (Auto) 0.0 Neut # (Auto) 3.8 Lymph # (Auto) 0.7 Crisp # (Auto) 0.5 Eos # (Auto) 0.1 Baso # (Auto) 0.0 Plt Morphology Comment Large & small platle Hypochromasia 2+ Poikilocytosis 2+ Anisocytosis 2+ PT INR APTT D-Dimer (Manual) Puncture Site Rr O2 Saturation 88.0 L ABG pH 7.308 L ABG pCO2 54.2 H ABG pO2 61.0 L ABG HCO3 27.2 H ABG Total CO2 29 H ABG Base Excess 1 Kar Test + FiO2 % 21.0 Sodium 142.4 Potassium 5.49 H Chloride 105.3 Carbon Dioxide 29.7 Anion Gap 12.89 BUN 53.2 H Creatinine 2.73 H Estimated GFR (MDRD) 23.00 BUN/Creatinine Ratio 19.48 Glucose 113.1 H Lactic Acid Calcium 9.09 Magnesium 2.65 H Total Bilirubin 0.80 AST 22.6 ALT 12.1 Alkaline Phosphatase 41.1 L Troponin I < 0.012 Total Protein 6.63 Albumin 3.83 Globulin 2.80 Albumin/Globulin Ratio 1.36 Procalcitonin Digoxin Influ A Molecular Assay Influ B Molecular Assay 08/19/19 08/19/19 08/19/19 14:54 14:54 14:54 WBC RBC Hgb Hct MCV MCH MCHC RDW Coeff of Lynda Plt Count Immature Gran % (Auto) Neut % (Auto) Lymph % (Auto) Crisp % (Auto) Eos % (Auto) Baso % (Auto) Immature Gran # (Auto) Neut # (Auto) Lymph # (Auto) Crisp # (Auto) Eos # (Auto) Baso # (Auto) Plt Morphology Comment Hypochromasia Poikilocytosis Anisocytosis PT 140.9 H INR 16.87 H* APTT 73.8 H D-Dimer (Manual) 449.17 Puncture Site O2 Saturation ABG pH ABG pCO2 ABG pO2 ABG HCO3 ABG Total CO2 ABG Base Excess Kar Test FiO2 % Sodium Potassium Chloride Carbon Dioxide Anion Gap BUN Creatinine Estimated GFR (MDRD) BUN/Creatinine Ratio Glucose Lactic Acid Calcium Magnesium Total Bilirubin AST ALT Alkaline Phosphatase Troponin I Total Protein Albumin Globulin Albumin/Globulin Ratio Procalcitonin 0.09 Digoxin Influ A Molecular Assay Influ B Molecular Assay 08/19/19 08/19/19 08/19/19 14:54 14:54 14:55 WBC RBC Hgb Hct MCV MCH MCHC RDW Coeff of Lynda Plt Count Immature Gran % (Auto) Neut % (Auto) Lymph % (Auto) Crisp % (Auto) Eos % (Auto) Baso % (Auto) Immature Gran # (Auto) Neut # (Auto) Lymph # (Auto) Crisp # (Auto) Eos # (Auto) Baso # (Auto) Plt Morphology Comment Hypochromasia Poikilocytosis Anisocytosis PT INR APTT D-Dimer (Manual) Puncture Site O2 Saturation ABG pH ABG pCO2 ABG pO2 ABG HCO3 ABG Total CO2 ABG Base Excess Kar Test FiO2 % Sodium Potassium Chloride Carbon Dioxide Anion Gap BUN Creatinine Estimated GFR (MDRD) BUN/Creatinine Ratio Glucose Lactic Acid 1.11 Calcium Magnesium Total Bilirubin AST ALT Alkaline Phosphatase Troponin I Total Protein Albumin Globulin Albumin/Globulin Ratio Procalcitonin Digoxin 0.63 L Influ A Molecular Assay Negative by naat Influ B Molecular Assay Negative by naat Orders Category Date Time Status ADMIT PATIENT INPATIENT .TO [facility] (MONITORED BED) ADMISSION 08/19/19 13:49 Active ABG DRAW REQUEST Stat CARDIO 08/19/19 14:30 Completed EKG-(ED ONLY) Stat CARDIO 08/19/19 14:35 Completed NEBULIZER TREATMENT Stat CARDIO 08/19/19 15:20 Completed OXYGEN Routine CARDIO 08/19/19 14:35 Completed TELEMETRY MONITORING TELE CARE 08/19/19 17:03 Active ABG Stat LAB 08/19/19 14:30 Completed BLOOD CULTURE (ED ONLY) Stat LAB 08/19/19 15:05 Results CBC W/ AUTO DIFF Stat LAB 08/19/19 14:54 Completed CMP [COMPREHENSIVE METABOLIC PANEL] Stat LAB 08/19/19 14:54 Completed D-DIMER Stat LAB 08/19/19 14:54 Completed DIGOXIN Stat LAB 08/19/19 14:54 Completed FLU A & B MOLECULAR [FLU A/B MOLECULAR] Stat LAB 08/19/19 14:55 Completed LACTIC ACID Stat LAB 08/19/19 14:54 Completed MAGNESIUM Stat LAB 08/19/19 14:54 Completed PARTIAL THROMBOPLASTIN TIME Stat LAB 08/19/19 14:54 Completed PROCALCITONIN Stat LAB 08/19/19 14:54 Completed PT WITH INR Stat LAB 08/19/19 14:54 Completed RBC MORPHOLOGY Stat LAB 08/19/19 14:54 Completed TROPONIN I Stat LAB 08/19/19 14:54 Completed UA [URINALYSIS C & S IF INDICATED] Stat LAB 08/19/19 21:10 Completed Levalbuterol HCl [Xopenex 1.25 mg] MEDS 08/19/19 15:20 Discontinued 1.25 mg NEB ONCE STA Metolazone [Zaroxolyn] MEDS 08/19/19 15:47 Discontinued 2.5 mg PO ONCE STA Phytonadione [Mephyton] MEDS 08/19/19 16:40 Discontinued 10 mg PO ONCE STA CHEST, 1V AP ONLY Stat RADS 08/19/19 14:35 Completed Medications Generic Name Dose Route Start Last Admin Trade Name Freq PRN Reason Stop Dose Admin Acetaminophen 650 mg 08/19/19 18:11 Tylenol PO Q4H PRN Mild Pain Cephalexin 500 mg 08/22/19 21:00 Keflex PO 08/25/19 20:59 Q8HR JENNIFER Digoxin 125 mcg 08/20/19 11:00 08/22/19 09:59 Lanoxin PO 125 mcg [id number] JENNIFER Administration Diltiazem HCl 60 mg 08/22/19 09:00 08/22/19 09:49 Cardizem PO Not Given Q12HR JENNIFER Diltiazem HCl 30 mg 08/22/19 09:00 08/22/19 09:50 Cardizem PO Not Given Q12HR JENNIFER Sodium Chloride 1,000 mls @ 50 mls/hr 08/20/19 08:37 08/22/19 10:00 Sodium Chloride IV 50 mls/hr .Q20H JENNIFER Administration Lorazepam 0.5 mg 08/21/19 15:31 08/21/19 20:04 Ativan PO 0.5 mg TID PRN Administration Anxiety Methylprednisolone Sodium Succinate 80 mg 08/19/19 21:00 08/22/19 09:43 Solu-Medrol 125 Mg IVP 80 mg Q12HR JENNIFER Administration Sacubitril/Valsartan 1 each 08/21/19 09:00 08/22/19 09:48 Entresto 24 Mg-26 Mg Tablet PO 1 each BID JENNIFER Administration Warfarin Sodium 3 mg 08/21/19 17:00 08/22/19 17:32 Coumadin PO 3 mg QPM JENNIFER Administration Discontinued Medications Generic Name Dose Route Start Last Admin Trade Name Freq PRN Reason Stop Dose Admin Digoxin 125 mcg 08/21/19 16:18 08/21/19 16:58 Lanoxin PO 08/21/19 16:19 125 mcg ONCE STA Administration Digoxin 250 mcg 08/21/19 18:32 08/21/19 19:16 Lanoxin IVP 08/21/19 18:33 250 mcg ONCE STA Administration Diltiazem HCl 60 mg 08/21/19 19:00 08/21/19 20:04 Cardizem PO 60 mg Q12HR JENNIFER Administration Furosemide 20 mg 08/19/19 20:39 08/19/19 20:51 Lasix IVP 08/19/19 20:40 20 mg ONCE STA Administration Furosemide 20 mg 08/20/19 08:37 08/20/19 08:52 Lasix IVP 08/20/19 08:38 20 mg ONCE STA Administration Sodium Chloride 1,000 mls @ 75 mls/hr 08/19/19 18:30 08/21/19 19:12 Sodium Chloride IV Not Given .[id number] JENNIFER CEFTRIAXONE/D5W 1 GM PREMIX 1 gm in 50 mls @ 75 mls/hr 08/19/19 18:30 08/19/19 19:31 Rocephin 1 Gm/50 Ml D5w IV 08/22/19 18:29 75 mls/hr DAILY JENNIFER Administration CEFTRIAXONE/D5W 1 GM PREMIX 1 gm in 50 mls @ 75 mls/hr 08/20/19 21:00 08/21/19 20:04 Rocephin 1 Gm/50 Ml D5w IV 08/22/19 18:29 75 mls/hr BEDTIME JENNIFER Administration Levalbuterol HCl 1.25 mg 08/19/19 15:20 08/19/19 15:33 Xopenex 1.25 Mg NEB 08/19/19 15:21 1.25 mg ONCE STA Administration Lorazepam 1 mg 08/21/19 15:31 08/21/19 15:46 Ativan PO 08/21/19 15:32 1 mg ONCE STA Administration Metolazone 2.5 mg 08/19/19 15:47 08/19/19 18:35 Zaroxolyn PO 08/19/19 15:48 Not Given ONCE STA Phytonadione 10 mg 08/19/19 16:40 08/19/19 16:48 Mephyton PO 08/19/19 16:41 10 mg ONCE STA Administration Vital Signs: Temp Pulse Resp BP Pulse Ox 08/19/19 13:53 97.6 F 64 22 98/59 L 85 L SAMY Risk Score SAMY Risk Score: Risk Score Odds of by 30D 0 0.1 (0.1-0.2) 1 0.3 (0.2-0.3) 2 0.4 (0.3-0.5) 3 0.7 (0.6-0.9) 4 1.2 (1.0-1.5) 5 2.2 (1.9-2.6) 6 3.0 (2.5-3.6) 7 4.8 (3.8-6.1)
[2019-08-19 15:05] LABS: HEMATOCRIT 38.5 % (42.0-52.0)
[2019-08-19] MEDS ORDERED: XOPENEX 1.25 MG NEB STA (15:20)
[2019-08-19] MEDS ORDERED: ZAROXOLYN PO STA (15:47)
--- NOTE | 2019-08-19 16:05 | DI ---
EXAM: Frontal chest HISTORY: Dyspnea FINDINGS / IMPRESSION: Compared to 12/30/2018. Cardiomegaly is again noted. Patchy mild densities in the bases could represent atelectasis or pneum onia. Probable subtle central vascular congestion. Probable trace pleural effusions. No pneumothor ax.
[2019-08-19] MEDS ORDERED: MEPHYTON PO STA (16:40)
[2019-08-19] MEDS ORDERED: ROCEPHIN 1 GM/50 ML D5W 1 GM/50 ML BAG IV SCH (18:30)
[2019-08-19] MEDS ORDERED: SODIUM CHLORIDE 1,000 ML IV SCH (18:30)
[2019-08-19 18:31] VITALS: BMI 37.8
[2019-08-19] MEDS: SOLU-MEDROL 125 MG IVP SCH (20:09)
[2019-08-19] MEDS ORDERED: LASIX IVP STA (20:39)
[2019-08-20] MEDS ORDERED: LASIX IVP STA (08:37)
[2019-08-20] MEDS: SOLU-MEDROL 125 MG IVP SCH ×2 (08:51→21:04)
[2019-08-20] MEDS: SODIUM CHLORIDE 1,000 ML IV SCH (08:52)
--- NOTE | 2019-08-20 08:55 | PCM.PROG ---
Attending Provider: ATTENDING PROVIDER: Dr. LUCILA ZHAO DATE OF SERVICE: 08/20/19 SUBJECTIVE: This 83 year old /WHITE M was hospitalized 08/19/19 with acute respiratory failure, acute renal failure, hypotension, severe fluid retention and elevated INR with coagulopathy. He is a lot better. is in the room. No shortness of breath at rest. He is talking better. Appetite has improved. REVIEW OF SYSTEMS: CONSTITUTIONAL: No night sweats. No fatigue, malaise, lethargy. No fever or chills. HEENT: Eyes: No visual changes. No eye pain. No eye discharge. ENT: No runny nose. No epistaxis. No sinus pain. No odynophagia. No congestion. RESPIRATORY: No cough, no congestion. No hemoptysis. No shortness of breath. CARDIOVASCULAR: No angina symptoms. No CHF symptoms. No atypical chest pain for CAD. No palpitations. No orthopnea.. GASTROINTESTINAL: No abdominal pain. No nausea or vomiting. No diarrhea or constipation. No hematemesis. No hematochezia. GENITOURINARY: No urgency. No frequency. No dysuria. No hematuria. No obstructive symptoms. No discharge. No pain. No significant abnormal bleeding. MUSCULOSKELETAL: No musculoskeletal pain; no joint swelling. NEUROLOGICAL: Awake, alert, oriented to time, place and person. No headache. No neck pain. No syncope. No seizures. No dizziness. PSYCHIATRIC: Not anxious. No depression. No suicidal thoughts. No homicidal thoughts. SKIN: No rash. No lesions. No wounds. ENDOCRINE: No unexplained weight loss. No weight gain. HEMATOLOGIC/LYMPHATIC: No anemia. No purpura. No petechiae. No prolonged or excessive bleeding. No palpable lymph nodes. PHYSICAL EXAMINATION: GENERAL: The patient is awake, alert and oriented, lying in bed in no distress. VITAL SIGNS: Temperature 97.5 F, Pulse 76, Respiratory Rate 22, BP 129/69, Pulse Ox 96% HEENT: Head normocephalic, atraumatic. Eyes: Extraocular muscles are intact. Pupils are equal, round and reactive to light and accommodation. Ears: No lesions. Nose appeared normal. Throat: No exudate or erythema. NECK: Supple. No JVD, no carotid bruit. No lymphadenopathy or thyromegaly. LUNGS: Good air entry bilaterally with basilar crepitation. Clear to auscultation. Percussion note normal. Chest symmetrical. HEART: S1, S2, no S3. No murmurs. No cyanosis or clubbing. No ascites. Pulses: Dorsalis pedis and posterior tibial pulses +1 to +2 both sides. ABDOMEN: Soft. Non-tender. Bowel sounds active. No CVA tenderness. No mass felt. EXTREMITIES: +2-+3 pitting edema up to thigh has been reduced to +1 pitting edema. Full range of motion of all extremities, equal. NEUROLOGIC: No focal deficit. Cranial nerves II through XII are grossly intact. No headache, no double vision or headache. SKIN: Warm and dry. Intact. Turgor-normal. LYMPHATIC: No palpable lymph nodes/no lymphedema. MUSCULOSKELETAL: Normal joints with no swelling. Muscle tone is normal. LAB REVIEW: 08/20/19 04:30 08/20/19 04:30 08/20/19 06:50: Puncture Site R rad, O2 Saturation 97.0, ABG pH 7.361, ABG pCO2 43.2, ABG pO2 95.0, ABG HCO3 24.4, ABG Total CO2 26, ABG Base Excess -1, Kar Test +, O2 Delivery Device vapotherm, FiO2 % 40.0 08/20/19 04:37: Puncture Site Lb, O2 Saturation 88.0 L, ABG pH 7.274 L*, ABG pCO2 51.6 H, ABG pO2 63.0 L, ABG HCO3 23.9, ABG Total CO2 25, ABG Base Excess -3 L, Kar Test +, O2 Delivery Device Bnc, Oxygen Liter Flow 2.00, FiO2 % 28.0 08/20/19 04:30: Sodium 140.9, Potassium 5.53 H, Chloride 104.4, Carbon Dioxide 28.0, Anion Gap 14.03, BUN 50.7 H, Creatinine 2.38 H, Estimated GFR (MDRD) 26.00, BUN/Creatinine Ratio 21.30, Glucose 139.1 H, Calcium 9.00, TSH 0.941 08/20/19 04:30: PT 84.2 H D, INR 9.77 H* D 08/20/19 04:30: WBC 3.31 L, RBC 5.44, Hgb 10.8 L, Hct 40.0 L, MCV 73.5 L, MCH 19.9 L, MCHC 27.0 L, RDW Coeff of Lynda 22.5 H, Plt Count 165, Immature Gran % (Auto) 1.2, Neut % (Auto) 90.0 H, Lymph % (Auto) 7.3 L, Mcnairy % (Auto) 1.2, Eos % (Auto) 0.0, Baso % (Auto) 0.3, Immature Gran # (Auto) 0.0, Neut # (Auto) 3.0, Lymph # (Auto) 0.2 L, Mcnairy # (Auto) 0.0 L, Eos # (Auto) 0.0, Baso # (Auto) 0.0, Hypochromasia 2+, Anisocytosis 1+, Ovalocytes 1+ 08/19/19 21:10: Urine Color Yellow, Urine Clarity Clear, Urine pH 5.0, Ur Specific [place] 1.025, Urine Protein 1+, Urine Glucose (UA) Negative, Urine Ketones Negative, Urine Blood Negative, Urine Nitrite Negative, Urine Bilirubin Negative, Urine Urobilinogen 0.2, Ur Leukocyte Esterase Negative, Urine Microscopic WBC 0-2, Ur Squamous Epith Cells Not present, Hyaline Casts 2-5 08/19/19 18:27: Puncture Site Rr, O2 Saturation 94.0 L, ABG pH 7.295 L*, ABG pCO2 54.5 H, ABG pO2 78.0 L, ABG HCO3 26.5 H, ABG Total CO2 28, ABG Base Excess 0, Kar Test +, O2 Delivery Device Nc, Oxygen Liter Flow 2.00 08/19/19 14:55: Influ A Molecular Assay Negative by naat, Influ B Molecular Assay Negative by naat 08/19/19 14:54: Digoxin 0.63 L 08/19/19 14:54: Lactic Acid 1.11 08/19/19 14:54: Procalcitonin 0.09 08/19/19 14:54: PT 140.9 H, INR 16.87 H*, APTT 73.8 H 08/19/19 14:54: D-Dimer (Manual) 449.17 08/19/19 14:54: Sodium 142.4, Potassium 5.49 H, Chloride 105.3, Carbon Dioxide 29.7, Anion Gap 12.89, BUN 53.2 H, Creatinine 2.73 H, Estimated GFR (MDRD) 23.00, BUN/Creatinine Ratio 19.48, Glucose 113.1 H, Calcium 9.09, Magnesium 2.65 H, Total Bilirubin 0.80, AST 22.6, ALT 12.1, Alkaline Phosphatase 41.1 L, Troponin I < 0.012, Total Protein 6.63, Albumin 3.83, Globulin 2.80, Albumin/Globulin Ratio 1.36 08/19/19 14:54: WBC 5.12, RBC 5.26, Hgb 10.6 L, Hct 38.5 L, MCV 73.2 L, MCH 20.2 L, MCHC 27.5 L, RDW Coeff of Lynda 22.4 H, Plt Count 169, Immature Gran % (Auto) 0.2, Neut % (Auto) 74.5, Lymph % (Auto) 12.9, Mcnairy % (Auto) 10.0, Eos % (Auto) 1.6, Baso % (Auto) 0.8, Immature Gran # (Auto) 0.0, Neut # (Auto) 3.8, Lymph # (Auto) 0.7, Mcnairy # (Auto) 0.5, Eos # (Auto) 0.1, Baso # (Auto) 0.0, Plt Morphology Comment Large & small platle, Hypochromasia 2+, Poikilocytosis 2+, Anisocytosis 2+ 08/19/19 14:30: Puncture Site Rr, O2 Saturation 88.0 L, ABG pH 7.308 L, ABG pCO2 54.2 H, ABG pO2 61.0 L, ABG HCO3 27.2 H, ABG Total CO2 29 H, ABG Base Excess 1, Kar Test +, FiO2 % 21.0 ASSESSMENT: Please see below. 1. Respiratory failure resolved with high flow oxygen 2. Co2 retention resolved 3. Renal failure with improved kidney function creatinine 2.3 and BUN 50 in spite of IV Lasix 4. Hyperkalemia is from renal failure will monitor that 5. Coagulopathy with INR of 9.77 improved with Vitamin K PO will monitor INR 6. Hypotension has resolved. Systolic blood pressure 129. PLAN: 1. 20mg Lasix IV this morning 2. Slow IV hydration 3. Hold all medications except for what we are giving 4. ABG, Telemetry and electrolyte will be monitored 5. The patient had urine output of more than 5,000 cc so far. 6. The is present in the room and is updated on his condition which is improving with improved respiratory status, kidney function and INR is better. No evidence of bleeding, hgb and hct are stable. Plan and coordination of the patient's care discussed in the presence of Data Entry Technician and nurse. CONDITION: Critical but stable. SCRIBED BY: FORREST CORNELIUS Deer Farmer scribed while in presence of service performed by Dr. LUCILA ZHAO on 08/20/19 ([id number])
[2019-08-20] MEDS: LANOXIN PO SCH (10:59)
--- NOTE | 2019-08-20 13:32 | PN ---
DATE OF SERVICE: 08/19/19 - ADMIT NOTE HISTORY OF PRESENT ILLNESS: The patient was seen and examined in the emergency room. The patient has been brought to the emergency room by his because the patient had blood pressure of 100. He hasn't been eating much at all. He was seen by Dr. Denise, the Application Technical Designer/Oncologist this morning. At that time, blood pressure was 100. He has been short of breath with mild cough and congestion. On further workup, the patient's chest x-ray showed pleural effusion with fluffy infiltrate, possibility of interstitial edema was entertained. The patient has renal failure with creatinine more than 2.5 with BUN of more than 40. The patient's arterial blood gases showed p02 of 55 with pc02 of 65, pH 7.30. The patient has respiratory acidosis with respiratory failure also. REVIEW OF SYSTEMS: CONSTITUTIONAL: No night sweats. No fatigue, malaise, lethargy. No fever or chills. HEENT: Eyes: No visual changes. No eye pain. No eye discharge. ENT: No runny nose. No epistaxis. No sinus pain. No sore throat. No odynophagia. No ear pain. No congestion. RESPIRATORY: No cough, no congestion. No hemoptysis. No shortness of breath. CARDIOVASCULAR: No angina symptoms. No CHF symptoms. No atypical chest pain for CAD. No palpitations. No PND. No orthopnea. GASTROINTESTINAL: No abdominal pain. No nausea or vomiting. No diarrhea or constipation. No hematemesis. No hematochezia. GENITOURINARY: No urgency. No frequency. No dysuria. No hematuria. No obstructive symptoms. No discharge. No pain. No significant abnormal bleeding. MUSCULOSKELETAL: No musculoskeletal pain. No joint swelling. No arthritis. NEUROLOGICAL: No headache. No neck pain. No syncope. No seizures. No dizziness. PSYCHIATRIC: Not anxious. No depression. No suicidal thoughts. No homicidal thoughts. SKIN: No rash. No lesions. No wounds. ENDOCRINE: No unexplained weight loss. No weight gain. HEMATOLOGIC/LYMPHATIC: No anemia. No purpura. No petechiae. No prolonged or excessive bleeding. No palpable lymph nodes. PHYSICAL EXAMINATION: GENERAL: The patient is oriented to person and place. HEENT: Head normocephalic, atraumatic. Eyes: Extraocular muscles are intact. Pupils are equal, round and reactive to light and accommodation. Ears: No lesions. Nose appeared normal. Throat: No exudate or erythema. NECK: Supple. No JVD, no carotid bruit. No lymphadenopathy or thyromegaly. LUNGS: Decreased breath sounds bilaterally with crepitations at the bases. The patient's breath sounds are shallow. Percussion note normal. Chest symmetrical. HEART: S1, S2, questionable S3. No murmur. No cyanosis or clubbing. No ascites. Pulses: Dorsalis pedis and posterior tibial pulses +1 to +2 bilaterally. ABDOMEN: Protuberant. Soft. Nontender. Bowel sounds active. No CVA tenderness. No mass felt. EXTREMITIES: Pedal edema up to thighs +2 pitting, leg edema is +3 pitting, tight. Full range of motion of all extremities, equal. NEUROLOGIC: No focal deficit. Cranial nerves II through XII are grossly intact. No headache, no double vision or headache. SKIN: Not dry. Intact. Turgor - normal. LYMPHATIC: No palpable lymph nodes/no lymphedema. MUSCULOSKELETAL: Normal joints with no swelling. Muscle tone is normal. ASSESSMENT: 1. ACUTE RESPIRATORY FAILURE WITH HYPERCARBIA, COULD BE BECAUSE OF BRONCHITIS AND/OR PNEUMONITIS. 2. RENAL FAILURE LIKELY DEHYDRATION, WORSENING OF MEDICAL CONDITIONS INCLUDING HYPOTENSION. 3. HYPOTENSION LIKELY FROM DEHYDRATION AND DECREASE IN ORAL INTAKE. CONTINUATION OF PRACTICALLY ALL HIS MEDICATIONS. 4. COAGULOPATHY WITH INR OF 16 WITH PROTIME OF MORE THAN 140. THE PATIENT IS ALREADY GIVEN VITAMIN K AT 10 MG P.O. 5. 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 6. HISTORY OF CHF. 7. HISTORY STATUS POST CVA. 8. HISTORY OF HYPERTENSION. 9. DYSLIPIDEMIA. 10. OBESITY. PLAN: 1. Give IV steroids. 2. Nebs treatment. 3. High flow oxygen. 4. Monitor the ABGs. 5. Elevate the legs. 6. If blood pressure is more than 110 give 20 Lasix IV. 7. IV antibiotics. 8. Daily CBC, CMP. 9. Telemetry. 10. The patient is DNR. 11. The patient's case discussed with the family, especially and explained that his prognosis is poor. TOTAL TIME SPENT: 1.5 HOURS CRITICAL CARE. TIME SPENT: More than 70 minutes. LAKESHIA
[2019-08-20] MEDS: ROCEPHIN 1 GM/50 ML D5W 1 GM/50 ML BAG IV SCH (21:04)
[2019-08-21 05:32] LABS: HEMATOCRIT 40.3 % (42.0-52.0)
[2019-08-21] MEDS: SODIUM CHLORIDE 1,000 ML IV SCH (05:47)
[2019-08-21] MEDS: ENTRESTO 24 MG-26 MG TABLET PO SCH ×2 (09:07→20:04)
[2019-08-21] MEDS: SOLU-MEDROL 125 MG IVP SCH ×2 (14:41→20:05)
[2019-08-21] MEDS ORDERED: ATIVAN PO STA (15:31)
[2019-08-21] MEDS ORDERED: LANOXIN PO STA (16:18)
[2019-08-21] MEDS: COUMADIN PO SCH (16:58)
[2019-08-21] MEDS ORDERED: LANOXIN IVP STA (18:32)
[2019-08-21] MEDS: CARDIZEM PO SCH ×2 (19:18→20:04)
[2019-08-21] MEDS: ATIVAN PO PRN (20:04)
[2019-08-21] MEDS: ROCEPHIN 1 GM/50 ML D5W 1 GM/50 ML BAG IV SCH (20:04)
[2019-08-22 05:39] LABS: HEMATOCRIT 37.7 % (42.0-52.0)
[2019-08-22] MEDS ORDERED: CARDIZEM ONE ×2 (08:44)
[2019-08-22] MEDS ORDERED: CARDIZEM PO SCH (09:00)
[2019-08-22] MEDS: SOLU-MEDROL 125 MG IVP SCH ×2 (09:43→21:37)
[2019-08-22] MEDS: ENTRESTO 24 MG-26 MG TABLET PO SCH ×2 (09:48→21:36)
[2019-08-22] MEDS: CARDIZEM PO SCH ×4 (09:49→21:36)
[2019-08-22] MEDS: LANOXIN PO SCH (09:59)
[2019-08-22] MEDS: SODIUM CHLORIDE 1,000 ML IV SCH (10:00)
--- NOTE | 2019-08-22 10:48 | PN ---
DATE OF SERVICE: 08/21/19 SUBJECTIVE: 83-year-old white male seen today. The patient is a lot better. The patient's respiratory status has improved. His oxygen level is 95% saturation with 2L. Kidney functions have improved. His urine output is modest. Oral intake is still not acceptable but improving. is in the room. REVIEW OF SYSTEMS: CONSTITUTIONAL: No night sweats. No fatigue, malaise, lethargy. No fever or chills. HEENT: Eyes: No visual changes. No eye pain. No eye discharge. ENT: No runny nose. No epistaxis. No sinus pain. No sore throat. No odynophagia. No congestion. RESPIRATORY: No cough, no congestion. No hemoptysis. No shortness of breath. CARDIOVASCULAR: No angina symptoms. No CHF symptoms. No atypical chest pain for CAD. No palpitations. No PND. No orthopnea. GASTROINTESTINAL: No abdominal pain. No nausea or vomiting. No diarrhea or constipation. No hematemesis. No hematochezia. GENITOURINARY: No urgency. No frequency. No dysuria. No hematuria. No obstructive symptoms. No discharge. No pain. No significant abnormal bleeding. MUSCULOSKELETAL: No musculoskeletal pain; no joint swelling. NEUROLOGICAL: Oriented to place and person. His voice is like before, quite loud and he is clear about what he is talking about. No headache. No neck pain. No syncope. No seizures. No dizziness. PSYCHIATRIC: Not anxious. No depression. No suicidal thoughts. No homicidal thoughts. SKIN: No rash. No lesions. No wounds. ENDOCRINE: No unexplained weight loss. No weight gain. HEMATOLOGIC/LYMPHATIC: No anemia. No purpura. No petechiae. No prolonged or excessive bleeding. No palpable lymph nodes. PHYSICAL EXAMINATION: VITAL SIGNS: Temperature 98.8, pulse 105, respiratory rate 22, BP 150/90, pulse ox 94% on 2L. HEENT: Head normocephalic, atraumatic. Eyes: Extraocular muscles are intact. Pupils are equal, round and reactive to light and accommodation. Ears: No lesions. Nose appeared normal. Throat: No exudate or erythema. NECK: Supple. No JVD, no carotid bruit. No lymphadenopathy or thyromegaly. LUNGS: Good air entry with mild wheeze. Clear to auscultation. Percussion note normal. Chest symmetrical. HEART: S1, S2, no S3. No murmurs. No cyanosis or clubbing. No ascites. Pulses: Dorsalis pedis and posterior tibial pulses +1 to +2 bilaterally. ABDOMEN: Soft. Nontender. Bowel sounds active. No CVA tenderness. No mass felt. EXTREMITIES: The patient's edema is tremendously better with trace to +1 pitting on both lower legs. Full range of motion of all extremities, equal. NEUROLOGIC: No focal deficit. Cranial nerves II through XII are grossly intact. No headache, no double vision or headache. SKIN: Not dry. Intact. Turgor - better. LYMPHATIC: No palpable lymph nodes/no lymphedema. MUSCULOSKELETAL: Normal joints with no swelling. Muscle tone is normal. LABS: Hemoglobin 11.2, hematocrit 40, WBC 4,000, normal differential. Creatinine 2, BUN 54, potassium 5.1. The patient has improvement in potassium level. Creatinine is a lot better. His INR is 2.0 so we will restart the Coumadin. ASSESSMENT: 1. Respiratory failure under control. 2. Pneumonia under control. 3. INR practically normal. 4. Kidney failure improving. 5. Mental status has improved. 6. Hypotension has resolved. PLAN: 1. Start Entresto 24/26 b.i.d. 2. Continue Lasix 20 mg IV. 3. Continue to monitor ABG. 4. Continue to monitor telemetry. 5. Telemetry steps examined. CONDITION: Stable. TIME SPENT: More than 30 minutes. Plan and coordination of the patient's care discussed in the presence of nurse. LAKESHIA
--- NOTE | 2019-08-22 10:51 | DI ---
EXAM: Chest two views HISTORY: Shortness of breath FINDINGS: Compared to 08/19/2019. Cardiomegaly is stable. Probable subtle central vascular congest ion. No consolidated pneumonia is identified. Trace pleural effusions are likely. There is no pneu mothorax. IMPRESSION: 1. Cardiomegaly, subtle central vascular congestion and trace pleural effusions. The congestion is less than previously seen.
--- NOTE | 2019-08-22 10:53 | HP ---
DATE OF SERVICE: 08/19/2019 REASON FOR HOSPITALIZATION: Shortness of breath, respiratory failure, kidney failure and INR of more than 15 and hypotension HISTORY OF PRESENT ILLNESS: 83 year old white male presented to the emergency room brought by the because of the patient's shortness of breath and hypotension. The patient's blood pressure was noted to be less than [address] Denise's office, District Wire Chief. After further workup in the emergency room the patient was noted to be in acute respiratory failure with pO2 61, pCO2 54, pH 7.30 with 88% saturation on room air. Also has kidney failure with creatinine 2.7, BUN 53 with GFR 23 and INR was reported as 16 with PT of 140 seconds. PAST MEDICAL HISTORY/PAST SURGICAL HISTORY: Dementia Behavioral disorder with emotional instability Congestive heart failure Dilated cardiomyopathy Dyslipidemia History of stroke Atrial fibrillation Congestive heart failure REVIEW OF SYSTEMS: CONSTITUTIONAL: No night sweats. Fatigue and weakness. No fever or chills. HEENT: Eyes: No visual changes. No eye pain. No eye discharge. ENT: No runny nose. No epistaxis. No sinus pain. No sore throat. No odynophagia. No ear pain. No congestion. RESPIRATORY: Mild cough, no congestion. No hemoptysis. Shortness of breath. Pleuritic pain. CARDIOVASCULAR: No angina symptoms. No CHF symptoms. No atypical chest pain for CAD. No palpitations. Questionable PND. No orthopnea. GASTROINTESTINAL: No abdominal pain. No nausea or vomiting. No diarrhea or constipation. No hematemesis. No hematochezia. Poor appetite for the past several days with poor oral intake. GENITOURINARY: No urgency. No frequency. No dysuria. No hematuria. No obstructive symptoms. No discharge. No pain. No significant abnormal bleeding. MUSCULOSKELETAL: No musculoskeletal pain. No joint swelling. No arthritis. Moving all his extremities. NEUROLOGICAL: No headache. No neck pain. No syncope. No seizures. No dizziness. Confusion with emotional instability. PSYCHIATRIC: Not anxious. No depression. No suicidal thoughts. No homicidal thoughts. SKIN: No rash. No lesions. No wounds. ENDOCRINE: No unexplained weight loss. No weight gain. HEMATOLOGIC/LYMPHATIC: No anemia. No purpura. No petechiae. No prolonged or excessive bleeding. No palpable lymph nodes. PERSONAL/FAMILY/SOCIAL HISTORY: The patient is and lives with the who takes care of him. Does few activity of daily living but needs help in bathing, dressing. Gait is unsteady. Nonsmoker and no alcohol abuse. MEDICATIONS: Donepezil 10mg PO bedtime Fenofibrate 160mg at bedtime Namenda 10mg twice a day Entresto BID low dose Gabapentin 300mg PO TID Ativan 0.5mg TID Diltazem 90mg PO BID Crestor 20mg daily Coumadin 3mg daily Lasix 40mg PO daily Potassium 40meq daily Flomax 0.4mg PO daily Lanoxin 125mg three days a week Aspirin 81mg PO daily ALLERGIES: Shellfish PHYSICAL EXAMINATION: GENERAL: The patient is oriented to person, not place or time. VITAL SIGNS: Temperature 97.6, pulse 70 per minute, respiratory rate 22, blood pressure 198/59 and pulse ox 85% on room air in the emergency room. HEENT: Head normocephalic, atraumatic. Eyes: Extraocular muscles are intact. Pupils are equal, round and reactive to light and accommodation. The patient's face looks symmetrical. Ears: No lesions. Nose appeared normal. Throat: No exudate or erythema. NECK: Supple. No JVD, no carotid bruit. No lymphadenopathy or thyromegaly. LUNGS: Decreased breath sounds with shallow breathing with crepitation bilaterally. Clear to auscultation. Percussion note normal. Chest symmetrical. HEART: S1, S2, no S3. No murmur. No cyanosis or clubbing. No ascites. Pulses: Dorsalis pedis and posterior tibial pulses +1 to +2 bilaterally. PMI not palpable on auscultation. ABDOMEN: Mildly protuberant. Soft. Nontender. Bowel sounds active. No CVA tenderness. No mass felt. EXTREMITIES: +2-+3 pitting edema of the legs and thighs. Full range of motion of all extremities, equal. Moving both extremities. NEUROLOGIC: No focal deficit. Cranial nerves II through XII are grossly intact. No headache, no double vision or headache. SKIN: Dry. Intact. Turgor - normal. LYMPHATIC: No palpable lymph nodes/no lymphedema. MUSCULOSKELETAL: Normal joints with no swelling. Muscle tone is normal. LABS: Hgb 10.6, hct 38, WBC 5,000 normal differential, creatinine 2.7, BUN 53, potassium 5.4, Total CO2 29. ABG pO2 61, pCO2 54, pH 7.30 with 88% saturation on room air. Troponin low, Procalcitonin normal, D-dimer 449, INR 16 with PT of 140. Flu A and B negative. Digoxin level 0.63 normal. Lactic acid 1.1 normal. Procalcitonin negative. Chest x-ray atelectasis versus pneumonia at the bases could be subtle vascular congestion. Trace pleural effusion. ASSESSMENT: 1. Acute respiratory failure with CO2 retention with possibility of pneumonia/CHF 2. Acute renal failure with dehydration 3. Hypotension combination of dehydration and medication side effects after the patient being practically very little fluid intake and oral intake for past couple of days. 4. Coagulopathy with INR of more than 15 with Protime of 140 5. History of congestive heart failure 6. Hypertrophic cardiomyopathy 7. History of dyslipidemia 8. CHF with dementia with emotional instability 9. BPH 10.Atrial fibrillation PLAN: 1. IV steroids 125 2. Solu-Cortef Q 6 hours 3. IV Lasix 20mg 4. Elevate the legs 5. Monitor arterial blood gasses. The patient may need high flow oxygen. Case discussed with Cardiopulmonary Tech 6. Telemetry orders with serial cardiac markers and EKG 7. Hold all the medications, no home medications for now 8. Phytonadione 10mg PO given high INR 9. IV antibiotics Rocephin and Zithromax 10.NEBS treatment QID DUO NEBS as needed 11.The patient is DNR 12.The patient's is in the room discussed all the medical problems which are very critical. PROGNOSIS: Poor CONDITION: Critical. TIME SPENT: Face to face 2 hours. Critical Care. LAKESHIA
[2019-08-22] MEDS: COUMADIN PO SCH (17:32)
--- NOTE | 2019-08-22 18:44 | ED.PDOC ---
Procedures - IV/Art Line Insertion Location: lt wrist Type of Line: Peripheral IV Invasive Line/IV Catheter Gauge: 22 Number of Attempts: 1 Blood Return Positive: Yes Invasive Line/IV Flushes Without Difficulty: Yes Conscious Sedation - Pre-op Assessment Weight: 248 lb 3 oz Surgical History: APPENDECTOMY - Medical History Past Medical History: Hypertension, CVA, CHF Other History: NONE - Physical Exam Heart Rate/Rhythm: Bradycardia
[2019-08-22] MEDS: KEFLEX PO SCH (21:37)
[2019-08-23] MEDS: ATIVAN PO PRN (00:12)
[2019-08-23] MEDS: KEFLEX PO SCH ×3 (05:27→20:01)
[2019-08-23 07:44] LABS: HEMATOCRIT 38.9 % (42.0-52.0)
[2019-08-23] MEDS: SOLU-MEDROL 125 MG IVP SCH (09:50)
[2019-08-23] MEDS: ENTRESTO 24 MG-26 MG TABLET PO SCH ×2 (09:52→20:01)
[2019-08-23] MEDS: CARDIZEM PO SCH ×4 (09:52→20:02)
[2019-08-23] MEDS: SODIUM CHLORIDE 1,000 ML IV SCH ×3 (09:57→10:00)
[2019-08-23] MEDS: COUMADIN PO SCH (17:09)
[2019-08-24] MEDS: TYLENOL PO PRN ×3 (00:18→20:47)
[2019-08-24] MEDS: ATIVAN PO PRN ×3 (00:18→20:46)
[2019-08-24 04:34] LABS: HEMATOCRIT 37.5 % (42.0-52.0)
[2019-08-24] MEDS: KEFLEX PO SCH ×3 (05:27→20:46)
[2019-08-24] MEDS: ENTRESTO 24 MG-26 MG TABLET PO SCH ×2 (08:58→20:46)
[2019-08-24] MEDS: CARDIZEM PO SCH ×4 (08:58→20:47)
[2019-08-24] MEDS: PREDNISONE PO SCH (08:58)
[2019-08-25] MEDS: TYLENOL PO PRN ×3 (04:07→20:22)
[2019-08-25 05:02] LABS: HEMATOCRIT 39.8 % (42.0-52.0)
[2019-08-25] MEDS: KEFLEX PO SCH ×2 (06:02→12:09)
[2019-08-25] MEDS ORDERED: LASIX IVP STA (08:26)
[2019-08-25] MEDS: CARDIZEM PO SCH ×4 (08:57→20:22)
[2019-08-25] MEDS: PREDNISONE PO SCH (08:57)
[2019-08-25] MEDS: ENTRESTO 24 MG-26 MG TABLET PO SCH ×2 (08:57→20:22)
[2019-08-25] MEDS: LANOXIN PO SCH (08:58)
--- NOTE | 2019-08-25 09:32 | PN ---
DATE OF SERVICE: 08/22/19 SUBJECTIVE: The patient was seen and examined today. 83-year-old white male feeling a lot better. Voice is stronger, appetite seems to be improving according to the . REVIEW OF SYSTEMS: CONSTITUTIONAL: Still feeling weak and tired. No night sweats. No malaise, lethargy. No fever or chills. HEENT: Eyes: No visual changes. No eye pain. No eye discharge. ENT: No runny nose. No epistaxis. No sinus pain. No sore throat. No odynophagia. No congestion. RESPIRATORY: No cough, no congestion. No hemoptysis. No shortness of breath. CARDIOVASCULAR: No angina symptoms. No CHF symptoms. No atypical chest pain for CAD. No palpitations. No PND. No orthopnea. GASTROINTESTINAL: Appetite is better. No abdominal pain. No nausea or vomiting. No diarrhea or constipation. No hematemesis. No hematochezia. GENITOURINARY: No urgency. No frequency. No dysuria. No hematuria. No obstructive symptoms. No discharge. No pain. No significant abnormal bleeding. MUSCULOSKELETAL: No musculoskeletal pain; no joint swelling. NEUROLOGICAL: No headache. No neck pain. No syncope. No seizures. No dizziness. PSYCHIATRIC: Not anxious. No depression. No suicidal thoughts. No homicidal thoughts. SKIN: No rash. No lesions. No wounds. ENDOCRINE: No unexplained weight loss. No weight gain. HEMATOLOGIC/LYMPHATIC: No anemia. No purpura. No petechiae. No prolonged or excessive bleeding. No palpable lymph nodes. PHYSICAL EXAMINATION: VITAL SIGNS: Temperature 98.2, pulse 110, respiratory rate 20, BP 150/84, pulse ox 95%. HEENT: Head normocephalic, atraumatic. Eyes: Extraocular muscles are intact. Pupils are equal, round and reactive to light and accommodation. Ears: No lesions. Nose appeared normal. Throat: No exudate or erythema. NECK: Supple. No JVD, no carotid bruit. No lymphadenopathy or thyromegaly. LUNGS: Decreased breath sounds, good air entry. Clear to auscultation. Percussion note normal. Chest symmetrical. HEART: S1, S2, no S3. No murmurs. No cyanosis or clubbing. No ascites. Pulses: Dorsalis pedis and posterior tibial pulses +1 to +2 bilaterally. ABDOMEN: Soft. Nontender. Bowel sounds active. No CVA tenderness. No mass felt. EXTREMITIES: Trace to 1+ edema on the leg but +2 on the thigh. Full range of motion of all extremities, equal. NEUROLOGIC: No focal deficit. Cranial nerves II through XII are grossly intact. No headache, no double vision or headache. SKIN: Not dry. Intact. Turgor - normal. LYMPHATIC: No palpable lymph nodes/no lymphedema. MUSCULOSKELETAL: Normal joints with no swelling. Muscle tone is normal. The patient had lost one pound which is not true. The patient had a lot of urine output the past couple of days. He has lost half of the edema fluid than what he had and he started out with large volume of edema. Hemoglobin 10.8, hematocrit 37, WBC 6,000, normal differential. Creatinine 2, BUN 63, potassium 4.8. ASSESSMENT: 1. Respiratory failure seems to be under control with oxygen saturation 98% on 2 to 3L. ABG done this morning was excellent with p02 more than 80. 2. INR is 1.69, coagulopathy has resolved. 3. Renal failure seems to be improving but increase in the BUN, will hold IV Lasix now. 4. Dementia seems to be improving. The patient is oriented to time, place and person and his voice is a lot stronger and better. Appetite improving. PLAN: 1. Continue the same treatment. 2. Monitor the patient's CBC, CMP and ABG. 3. We have already started him on Entresto. 4. Ativan has been started again. 5. We will reintroduce his medications. TIME SPENT: More than 30 minutes. Plan and coordination of the patient's care discussed in the presence of nurse. LAKESHIA
--- NOTE | 2019-08-25 09:34 | PN ---
DATE OF SERVICE: 08/24/2019 SUBJECTIVE: 83 year old white male hospitalized with pneumonia, respiratory failure and kidney failure, coagulopathy with elevated INR. The patient's INR is now acceptable, almost normal. Pneumonia seems to be resolving. Oxygen saturation is 94% on 2-3 liters. He is feeling better. The voice is stronger. The appetite seems to be improving. His oral intake is more. He is able to walk to the bathroom almost without any help. His is happy with the progress but the problem is the patient's BUN and creatinine are 89 and 2.3 respectively are rising in spite of the fact the patient's Lasix as been on hold. Oral intake has increase. We are going to put Garica Catheter and see how much he has in the bladder. IV steroids have been discontinued and he is on oral Prednisone. Avoid fluid retention. REVIEW OF SYSTEMS: CONSTITUTIONAL: No night sweats. No fatigue, malaise, lethargy. No fever or chills. HEENT: Eyes: No visual changes. No eye pain. No eye discharge. ENT: No runny nose. No epistaxis. No sinus pain. No sore throat. No odynophagia. No congestion. RESPIRATORY: No cough, no congestion. No hemoptysis. No shortness of breath. CARDIOVASCULAR: No angina symptoms. No CHF symptoms. No atypical chest pain for CAD. No palpitations. No PND. No orthopnea. GASTROINTESTINAL: No abdominal pain. No nausea or vomiting. No diarrhea or constipation. No hematemesis. No hematochezia. Appetite appears to be improving. GENITOURINARY: No urgency. No frequency. No dysuria. No hematuria. No obstructive symptoms. No discharge. No pain. No significant abnormal bleeding. MUSCULOSKELETAL: No musculoskeletal pain; no joint swelling. NEUROLOGICAL: No headache. No neck pain. No syncope. No seizures. No dizziness. PSYCHIATRIC: Not anxious. No depression. No suicidal thoughts. No homicidal thoughts. SKIN: No rash. No lesions. No wounds. ENDOCRINE: No unexplained weight loss. No weight gain. HEMATOLOGIC/LYMPHATIC: No anemia. No purpura. No petechiae. No prolonged or excessive bleeding. No palpable lymph nodes. PHYSICAL EXAMINATION: VITAL SIGNS: temperature 97.4, pulse 100, respiratory rate 22, blood pressure 150/80 and pulse ox 93%. HEENT: Head normocephalic, atraumatic. Eyes: Extraocular muscles are intact. Pupils are equal, round and reactive to light and accommodation. Ears: No lesions. Nose appeared normal. Throat: No exudate or erythema. NECK: Supple. No JVD, no carotid bruit. No lymphadenopathy or thyromegaly. LUNGS: Decreased breath sounds with mild wheeze. Percussion note normal. Chest symmetrical. HEART: S1, S2, no S3. No murmurs. No cyanosis or clubbing. No ascites. Pulses: Dorsalis pedis and posterior tibial pulses +1 to +2 bilaterally. ABDOMEN: Soft. Nontender. Bowel sounds active. No CVA tenderness. No mass felt. EXTREMITIES: +1 pitting edema. Full range of motion of all extremities, equal. NEUROLOGIC: No focal deficit. Cranial nerves II through XII are grossly intact. No headache, no double vision or headache. SKIN: Not dry. Intact. Turgor - normal. LYMPHATIC: No palpable lymph nodes/no lymphedema. MUSCULOSKELETAL: Normal joints with no swelling. Muscle tone is normal. LABS: Hgb 10.5, hct 37, WBC 4,800 normal differential, creatinine 2.3, BUN 89, potassium 4.9. ASSESSMENT: 1. Pneumonia/Bronchitis/Respiratory failure seems to be resolving 2. Elevated INR with coagulopathy has resolved 3. Renal failure seems to have improved some from the admission profile but still has a long way to go PLAN: 1. Hold Lasix 2. Increase oral fluid intake 3. Monitor CMP 4. Encourage the patient to eat more proteins 5. Up and about 6. Elevate the legs CONDITION: Stable. PROGNOSIS: Guarded TIME SPENT: More than 30 minutes. Plan and coordination of the patient's care discussed in the presence of nurse. LAKESHIA
--- NOTE | 2019-08-25 10:29 | PN ---
DATE OF SERVICE: 08/23/2019 SUBJECTIVE: 83 year old white male hospitalized with respiratory failure with pneumonia, coagulopathy with elevated INR and renal failure. The patient's condition has stabilized and his kidney functions seems to have deteriorated with increase in the BUN in spite of Lasix being held. The patient's shows somewhat more swelling of the legs because of holding Lasix. His appetite is somewhat better. He is more alert and able to walk with help to the bathroom. REVIEW OF SYSTEMS: CONSTITUTIONAL: No night sweats. No fatigue, malaise, lethargy. No fever or chills. HEENT: Eyes: No visual changes. No eye pain. No eye discharge. ENT: No runny nose. No epistaxis. No sinus pain. No sore throat. No odynophagia. No congestion. RESPIRATORY: No cough, no congestion. No hemoptysis. No shortness of breath. CARDIOVASCULAR: No angina symptoms. No CHF symptoms. No atypical chest pain for CAD. No palpitations. No PND. No orthopnea. GASTROINTESTINAL: No abdominal pain. No nausea or vomiting. No diarrhea or constipation. No hematemesis. No hematochezia. GENITOURINARY: No urgency. No frequency. No dysuria. No hematuria. No obstructive symptoms. No discharge. No pain. No significant abnormal bleeding. MUSCULOSKELETAL: No musculoskeletal pain; no joint swelling. NEUROLOGICAL: No headache. No neck pain. No syncope. No seizures. No dizziness. PSYCHIATRIC: Not anxious. No depression. No suicidal thoughts. No homicidal thoughts. SKIN: No rash. No lesions. No wounds. ENDOCRINE: No unexplained weight loss. No weight gain. HEMATOLOGIC/LYMPHATIC: No anemia. No purpura. No petechiae. No prolonged or excessive bleeding. No palpable lymph nodes. PHYSICAL EXAMINATION: GENERAL: The patient is oriented to time, place and person. VITAL SIGNS: Temperature 97.9, pulse 80, respiratory rate 20, blood pressure 135/86 and pulse ox 92%. HEENT: Head normocephalic, atraumatic. Eyes: Extraocular muscles are intact. Pupils are equal, round and reactive to light and accommodation. Ears: No lesions. Nose appeared normal. Throat: No exudate or erythema. NECK: Supple. No JVD, no carotid bruit. No lymphadenopathy or thyromegaly. LUNGS: Decreased breath sounds with mild wheeze. Percussion note normal. Chest symmetrical. HEART: S1, S2, no S3. No murmurs. No cyanosis or clubbing. No ascites. Pulses: Dorsalis pedis and posterior tibial pulses +1 to +2 bilaterally. ABDOMEN: Soft. Nontender. Bowel sounds active. No CVA tenderness. No mass felt. EXTREMITIES: Trace to 1+ pitting edema. Full range of motion of all extremities, equal. NEUROLOGIC: No focal deficit. Cranial nerves II through XII are grossly intact. No headache, no double vision or headache. SKIN: Not dry. Intact. Turgor - normal. LYMPHATIC: No palpable lymph nodes/no lymphedema. MUSCULOSKELETAL: Normal joints with no swelling. Muscle tone is normal. LABS: INR 2.1, Hgb 10.8, hct 38, WBC 4,000 normal differential, creatinine 2, BUN 80, potassium 5.1 ASSESSMENT: 1. Acute respiratory failure seems to be under control with 92% oxygen saturation on 2-3 liters. 2. Renal failure seems to have subsided with chronic insufficiency persists with renal azotemia type of picture PLAN: 1. The patient is getting slow IV fluids which when stopped the patient's oral intake acceptable. 2. Hold Lasix because of the rise of the BUN 3. The patient is advised to elevate his legs, nursing staff instructed about it. 4. Discontinue IV steroids 5. Prednisone 10mg PO daily 6. Continue monitor ABG and CMP CONDITION: Stable. PROGNOSIS: Guarded. TIME SPENT: More than 30 minutes. Plan and coordination of the patient's care discussed in the presence of nurse. LAKESHIA
[2019-08-25] MEDS: ATIVAN PO PRN ×2 (12:09→20:22)
--- NOTE | 2019-08-25 13:38 | PN ---
DATE OF SERVICE: 08/25/2019 SUBJECTIVE: 83 year old white male hospitalized with respiratory failure, renal failure and coagulopathy with INR of 14. The patient's condition seems to have improved. Bronchitis and pneumonia symptoms practically has resolved. The patient is afebrile. The patient has renal failure which seems to be steady increasing BUN and Creatinine which was 2.7 on admission is down to 2.2. The has good urine output. His oral intake has improved. REVIEW OF SYSTEMS: CONSTITUTIONAL: No night sweats. No fatigue, malaise, lethargy. No fever or chills. HEENT: Eyes: No visual changes. No eye pain. No eye discharge. ENT: No runny nose. No epistaxis. No sinus pain. No sore throat. No odynophagia. No congestion. RESPIRATORY: No cough, no congestion. No hemoptysis. No shortness of breath. CARDIOVASCULAR: No angina symptoms. No CHF symptoms. No atypical chest pain for CAD. No palpitations. No PND. No orthopnea. GASTROINTESTINAL: No abdominal pain. No nausea or vomiting. No diarrhea or constipation. No hematemesis. No hematochezia. GENITOURINARY: No urgency. No frequency. No dysuria. No hematuria. No obstructive symptoms. No discharge. No pain. No significant abnormal bleeding. MUSCULOSKELETAL: No musculoskeletal pain; no joint swelling. NEUROLOGICAL: No headache. No neck pain. No syncope. No seizures. No dizziness. PSYCHIATRIC: Not anxious. No depression. No suicidal thoughts. No homicidal thoughts. SKIN: No rash. No lesions. No wounds. ENDOCRINE: No unexplained weight loss. No weight gain. HEMATOLOGIC/LYMPHATIC: No anemia. No purpura. No petechiae. No prolonged or excessive bleeding. No palpable lymph nodes. PHYSICAL EXAMINATION: VITAL SIGNS: Temperature 97.5, pulse 120, respiratory rate 20, blood pressure 144/94 and pulse ox 96%. HEENT: Head normocephalic, atraumatic. Eyes: Extraocular muscles are intact. Pupils are equal, round and reactive to light and accommodation. Ears: No lesions. Nose appeared normal. Throat: No exudate or erythema. NECK: Supple. No JVD, no carotid bruit. No lymphadenopathy or thyromegaly. LUNGS: Decreased breath sounds with good air entry. Basal crepitations bilaterally. Percussion note normal. Chest symmetrical. HEART: S1, S2, no S3. No murmurs. No cyanosis or clubbing. No ascites. Pulses: Dorsalis pedis and posterior tibial pulses +1 to +2 bilaterally. ABDOMEN: Soft. Nontender. Bowel sounds active. No CVA tenderness. No mass felt. EXTREMITIES: +1 pitting edema thighs and lower extremities. Full range of motion of all extremities, equal. NEUROLOGIC: No focal deficit. Cranial nerves II through XII are grossly intact. No headache, no double vision or headache. SKIN: Not dry. Intact. Turgor - normal. LYMPHATIC: No palpable lymph nodes/no lymphedema. MUSCULOSKELETAL: Normal joints with no swelling. Muscle tone is normal. LABS: Hgb 11, hct 39, WBC 9,000 normal differential, creatinine 2.2, BUN 94, potassium 4.7 ASSESSMENT: 1. Respiratory failure seems to have resolved with pneumonia clinically a lot better. 2. INR now is 4.1 hold his Coumadin. We will try to keep INR between 2-3 3. Renal failure, will continue to push oral fluids PLAN: 1. Continue the rest of the medication as before 2. IV 10mg of Lasix 3. Even since he has been off Lasix there is no increased fluid retention. The patient had an echocardiogram down which showed markedly enlarged LV cavity more than before. It is now 6.5 used to be 5.4. Ejection fraction 35% the same as before with markedly dilated left atrial cavity, valves are the same as before 4. Continue Entresto and the rest of the medications 5. Continue to monitor CMP 6. Strongly advised to drink water and eat more proteins. is present in the room. The echo findings discussed that there is some deterioration in his LV function CONDITION: Stable for now PROGNOSIS: Poor. TIME SPENT: More than 30 minutes. Plan and coordination of the patient's care discussed in the presence of nurse. LAKSEHIA
[2019-08-26 05:53] LABS: HEMATOCRIT 40.6 % (42.0-52.0)
[2019-08-26] MEDS: PREDNISONE PO SCH (08:43)
[2019-08-26] MEDS: ENTRESTO 24 MG-26 MG TABLET PO SCH ×2 (08:43→20:19)
[2019-08-26] MEDS: CARDIZEM PO SCH ×4 (08:43→20:20)
--- NOTE | 2019-08-26 13:20 | RS.PTINEVL ---
Subjective - Patient information Date of Evaluation: 08/26/19 Date of Arrival on Unit: 08/19/19 Admitted From:: Home Usual Living Arrangement: With Spouse Home Environment: House, Stairs (few), Rail Medical History: CVA/TIA, Dementia, CHF Medical History Comments:: afib, dilated cardiomyopathy, behavioral disorder with emotional instability LATEX ALLERGY?: No Medications: see chart Subjective Information/ Patient Comments:: pt states he wants to get up. States that he feels his breathing is doing better. - Level of function Abilities prior to this admission: pt amb independently with rwx at home, assisted if needed with ADL's. Current Level of Function: Partially Dependent Current Equipment Used at Home: rolling walker, cane, neb machine, O2 @ 3L Interventions - Objective Patient Orientation: Person, Place Current Interventions: Telemetry, Garcia Catheter Observation: pt seen sitting up in bedside chair, and friend pulling on arms to try to stand him. Discussion with to allow staff to assist him to stand and to let him do as much as possible. Range of Motion - ROM Right Upper Extremity AROM: WFL's Left Upper Extremity AROM: WFL's Right Lower Extremity AROM: WFL's Left Lower Extremity AROM: WFL's Muscle Strength - Muscle Strength Right Upper Extremity Strength: Mild Weakness (grossly 4/5) Left Upper Extremity Strength: Mild Weakness (grossly 4/5) Right Lower Extremity Strength: Mild Weakness (hip flex 4-/5, knee flex/ext 4/5, ankle DF/PF 4/5) Left Lower Extremity Strength: Mild Weakness (hip flex 4-/5, knee flex/ext 4/5, ankle DF/PF 4/5) Sensation - Sensation Right Upper Extremity Sensation: Intact/Normal Left Upper Extremity Sensation: Intact/Normal Right Lower Extremity Sensation: Intact/Normal Left Lower Extremity Sensation: Intact/Normal Palpation Palpation Findings: None/Normal Balance - Sitting Balance and Reactions Static Sitting Balance: Fair Dynamic Sitting Balance: Poor Sitting Equilibrium Reactions: Delayed Left, Delayed Right Sitting Protective Reactions: Delayed Left, Delayed Right - Standing Balance and Reactions Static Standing Balance: Poor Dynamic Standing Balance: Poor Standing Equilibrium Reactions: Delayed Left, Delayed Right Standing Protective Reactions: Delayed Left, Delayed Right Functional Mobility - Transfers Sit to Stand: Mod Assist, 2 person assist Stand to Sit: Min Assist, Mod Assist, 2 person assist - Safety Awareness Safety Awareness: Poor JUDE INDEX SCORE: n/a Ambulation - Ambulation Assistive Device Used: Rolling Walker Orthotic/Prosthetic Device: No Distance: 50ft Assistance needed with Ambulation: CGA, Min Assist, 2 person assist Quality of Ambulation: O2 sat decreased to 85% during gait. Gait Deviations: Forward posture, Short stride, Deviates from path Ambulation Comments: pt requires repeated cues for posture, placement of rwx, and step length. pt amb with rwx almost at extended arms length Factors Affecting Ambulation: Breathing/O2 Saturation, Weakness, Decreased Saf ety, Cognitive Status, Limited Endurance Treatment time - Time with patient Length of Evaluation: 25 Total treatment time: 29 Patient Education - Education Patient Education: Activity Modification, Education of Plan of Care Teaching Recipient: Patient Teaching Methods: Discussion, Demonstration Assessment - Assessment Problem List:: Decreased level of function, Requires training/education, Decreased safety/Risk of falls, Weakness, Cognitive status limits abilities Rehab Potential: Fair Further Therapy Indicated?: Yes Candidate for Swing Bed for Therapy Services?: Feel pt may not be a candidate for swing bed due to cognitive deficits. Will reassess at a later date. Evaluation Complexity: HISTORY: Medium, EXAM OF BODY SYSTEMS: Medium, CLINICAL PRESENTATION: Medium, CLINICAL DECISION MAKING: Medium Patient's Goal(s): Be able to walk and get up and down on my own. Short Term Goals GOAL #1: pt demonstrate independence with rolling and bridging using bedrails Goal to be met by: 08/28/19 GOAL #2: Transfer sup to/from sit min x 1 Goal to be met by: 08/28/19 GOAL #3: Sit to/from stand min x 1 Goal to be met by: 08/28/19 GOAL #4: pt amb with rwx 100ft with min to CGA x 1 with O2 Goal to be met by: 08/28/19 Group Home Goals GOAL #1: pt transfer sup to/from sit to/from stand CGA Goal to be met by: 09/01/19 GOAL #2: pt amb with rwx 140ft with CGA with O2. Goal to be met by: 09/01/19 GOAL #3: pt demonstrate fair stand balance Goal to be met by: 09/01/19 Plan Plan of Care: Therapeutic EX, Therapeutic Activity Other:: gait training Frequency of Treatment: 1-2 X day, as tolerated Duration of Treatment: 5 days Anticipated Discharge Destination: Home Treatment Diagnosis (ICD 10 Codes): R 26.2 difficulty walking. R26.81 balance impaired. Z 91.81 risk of falls Has the Physician been added for Co-signature?: Yes
--- NOTE | 2019-08-26 13:32 | ECHO2D ---
Date of Exam: 08/25/19 Ordering Physician: DR. LUCILA ZHAO Room #: [id number] Reason for Echo: SOB, LVH M-Mode Normal Adult Results LV Dimensions Normal Adult Results AoV Opening excursions >1.6 >1.6 LVEDD-base- 3.5-5.8 6.5 Ao root dimensions 2.0-3.7 3.9 LVESD-base- 3.1-4.6 L. Atrium dimensions 1.9-3.8 6.0 Post. Wall thickness 0.8-1.1 1.3 IV septum (thickness) 0.7-1.2 1.3 Post. Wall excursion 0.72-1.3 0.6 Septal motion 0.4 Systolic motion R. Ventricular cavity 1.5-2.0 NORMAL LVEF 60% 35% Paradoxical septal wall motion NORMAL 2-D : DILATED LEFT VENTRICLE AND LEFT ATRIAL CAVITIES, HYPOKINETIC LEFT VENTRICLE. CALCIFIC AORTIC VALVES--ALL OTHER VALVES NORMAL--NO EFFUSION, NO THROMBUS M-MODE: MV: NORMAL AV: NORMAL TV: NORMAL PV: CHAMBER SIZE: ENLARGED LEFT ATRIAL AND LEFT VENTRICLE CAVITIES WALL MOTION: HYPOKINETIC LEFT VENTRICLE PERICARDIUM: NORMAL INTERPRETATION: 1. LEFT VENTRICULAR HYPERTROPHY WITH ENLARGED LEFT ATRIAL CAVITY 2. DILATED LEFT VENTRICLE CAVITY 3. HYPOKINETIC LEFT VENTRICLE WITH EJECTION FRACTION 35% 4. NORMAL VALVES MTDD
[2019-08-26] MEDS: TYLENOL PO PRN (20:19)
[2019-08-26] MEDS: ATIVAN PO PRN (20:19)
[2019-08-27 04:23] LABS: HEMATOCRIT 41.3 % (42.0-52.0)
[2019-08-27] MEDS ORDERED: LASIX IVP STA (08:07)
[2019-08-27] MEDS: ENTRESTO 24 MG-26 MG TABLET PO SCH ×2 (08:46→20:23)
[2019-08-27] MEDS: CARDIZEM PO SCH ×4 (08:46→20:23)
[2019-08-27] MEDS: PROTONIX PO SCH ×2 (08:46→17:06)
[2019-08-27] MEDS: PREDNISONE PO SCH (08:47)
[2019-08-27] MEDS: LANOXIN PO SCH (08:47)
--- NOTE | 2019-08-27 09:21 | PCM.PROG ---
Attending Provider: ATTENDING PROVIDER: Dr. LUCILA ZHAO DATE OF SERVICE: 08/27/19 SUBJECTIVE: This 83 year old /WHITE M was hospitalized 08/19/19 with acute respiratory failure, acute renal failure, coagulopathy with high INR. Respiratory failure seems to have resolved. Oxygen saturation 92% on 2L. The patient is coughing up sputum, which is mildly yellow. Pneumonia is resolving. Kidney failure seems to have improved with creatinine of 1.3; on admission was 2.7. Hydration status improved. Mental status is a lot better. INR is back to normal so will restart Coumadin. REVIEW OF SYSTEMS: CONSTITUTIONAL: No night sweats. No fatigue, malaise, lethargy. No fever or chills. HEENT: Eyes: No visual changes. No eye pain. No eye discharge. ENT: No runny nose. No epistaxis. No sinus pain. No odynophagia. No congestion. RESPIRATORY: Mild cough with congestion, yellowish sputum. No hemoptysis. No shortness of breath. CARDIOVASCULAR: No angina symptoms. No CHF symptoms. No atypical chest pain for CAD. No palpitations. No orthopnea.. GASTROINTESTINAL: Appetite improved. No abdominal pain. No nausea or vomiting. No diarrhea or constipation. No hematemesis. No hematochezia. GENITOURINARY: No urgency. No frequency. No dysuria. No hematuria. No obstructive symptoms. No discharge. No pain. No significant abnormal bleeding. MUSCULOSKELETAL: No musculoskeletal pain; no joint swelling. NEUROLOGICAL: Awake, alert, oriented to time, place and person. No headache. No neck pain. No syncope. No seizures. No dizziness. PSYCHIATRIC: Not anxious. No depression. No suicidal thoughts. No homicidal thoughts. SKIN: No rash. No lesions. No wounds. ENDOCRINE: Two pound weight gain. HEMATOLOGIC/LYMPHATIC: No anemia. No purpura. No petechiae. No prolonged or excessive bleeding. No palpable lymph nodes. PHYSICAL EXAMINATION: GENERAL: The patient is awake, alert and oriented, sitting in chair in no distress. VITAL SIGNS: Temperature 98.2 F, Pulse 107, Respiratory Rate 20, BP 137/83, Pulse Ox 92% HEENT: Head normocephalic, atraumatic. Eyes: Extraocular muscles are intact. Pupils are equal, round and reactive to light and accommodation. Ears: No lesions. Nose appeared normal. Throat: No exudate or erythema. NECK: Supple. No JVD, no carotid bruit. No lymphadenopathy or thyromegaly. LUNGS: Decreased breath sounds. Mild expiratory wheeze, good air entry. Percussion note normal. Chest symmetrical. HEART: S1, S2, no S3. No murmurs. No cyanosis or clubbing. No ascites. Pulses: Dorsalis pedis and posterior tibial pulses +1 to +2 both sides. ABDOMEN: Soft. Non-tender. Bowel sounds active. No CVA tenderness. No mass f elt. EXTREMITIES: +1 pitting edema with 2 lb weight gain. Full range of motion of all extremities, equal. NEUROLOGIC: No focal deficit. Cranial nerves II through XII are grossly intact. No headache, no double vision or headache. SKIN: Warm and dry. Intact. Turgor-normal. LYMPHATIC: No palpable lymph nodes/no lymphedema. MUSCULOSKELETAL: Normal joints with no swelling. Muscle tone is normal. LAB REVIEW: 08/27/19 04:05 08/27/19 04:05 08/27/19 04:31: Puncture Site Rrad, O2 Saturation 86.0 L, ABG pH 7.363, ABG pCO2 46.3 H, ABG pO2 54.0 L*, ABG HCO3 26.3 H, ABG Total CO2 28, ABG Base Excess 1, Kar Test +, FiO2 % 21.0 08/27/19 04:05: PT 20.6 H D, INR 2.20 08/27/19 04:05: Sodium 141.8, Potassium 4.56, Chloride 110.7 H, Carbon Dioxide 25.8, Anion Gap 9.86, BUN 62.7 H*, Creatinine 1.37 H, Estimated GFR (MDRD) 50.00, BUN/Creatinine Ratio 45.76, Glucose 99.9, Calcium 8.31 L, Total Bilirubin 1.30, AST 35.2, ALT 28.9, Alkaline Phosphatase 44.3 L, Total Protein 5.79 L, Albumin 3.40 L, Globulin 2.39, Albumin/Globulin Ratio 1.42 08/27/19 04:05: WBC 10.16, RBC 5.63, Hgb 11.3 L, Hct 41.3 L, MCV 73.4 L, MCH 20.1 L, MCHC 27.4 L, RDW Coeff of Lynda 22.5 H, Plt Count 159, Immature Gran % (Auto) 1.1, Neut % (Auto) 80.8 H, Lymph % (Auto) 7.6 L, [place] % (Auto) 10.1 H, Eos % (Auto) 0.3, Baso % (Auto) 0.1, Immature Gran # (Auto) 0.1, Neut # (Auto) 8.2 H, Lymph # (Auto) 0.8, [place] # (Auto) 1.0, Eos # (Auto) 0.0, Baso # (Auto) 0.0, Plt Morphology Comment , Hypochromasia 1+, Anisocytosis 1+, Ovalocytes 1+ 08/26/19 08:25: Puncture Site Rbrach, O2 Saturation 93.0 L, ABG pH 7.318 L, ABG pCO2 48.9 H, ABG pO2 75.0 L, ABG HCO3 25.1, ABG Total CO2 27, ABG Base Excess - 1, O2 Delivery Device Nc, Oxygen Liter Flow 3.00 ASSESSMENT: Please see below. 1. Respiratory failure resolved. 2. Renal failure resolved. 3. The patient has chronic kidney disease. 4. Coagulation with normal INR now. 5. CHF under control. 6. The patient has dilated cardiomyopathy with ejection fraction of 35%. 7. He is noted to have black stools, will start on Protonix. PLAN: 1. Will start the patient on Protonix 40 mg b.i.d. 2. Lasix 20 mg IV due to fluid retention. 3. Monitor CBC and CMP. 4. Stool for occult blood. 5. The is present in the room. Condition seems to be improving. Appetite is improved, walking around with little help. Garcia catheter is still in place. Will d/c Garcia tomorrow. Plan and coordination of the patient's care discussed in the presence of Agency Service Coordinator and nurse. CONDITION: Stable SCRIBED BY: BEENA EDGE, Brick Cleaner scribed while in presence of service performed by Dr. LUCILA ZHAO on 08/27/19 ([id number])
--- NOTE | 2019-08-27 10:06 | RS.OTINEVL ---
Subjective - Patient information Date of Evaluation: 08/27/19 Date of Arrival on Unit: 08/19/19 Admitted From:: Home Diagnosis: Pneumonia PRECAUTIONS: Risk for falls, Alzheimer's disease Usual Living Arrangement: With Spouse Living Arrangement Comments: Pt lives at home with his . Home Environment: House, Stairs (few), Rail Medical History: CVA/TIA, Dementia, CHF Medical History Comments:: afib, dilated cardiomyopathy, behavioral disorder with emotional instability LATEX ALLERGY?: No Surgical History Comments:: Right RCT repair. Medications: see chart Subjective Information/ Patient Comments:: "Oh, I'm burning." "Oh I gotta go." - Level of function Prior to this admission, the patient could do the following:: Independent ADL's Abilities prior to this admission: Pt was able to con his shirt, and pants. helped with socks and shoes. Pt Independent with self feeding. Current Equipment Used at Home: rolling walker, cane, neb machine, O2 @ 3L Pain Assessment - Pain Pain Score: 6 Side: bilateral Pain Location Body Site: When urinating Pain Aggravating Factors: ADL's Interventions - Objective Patient Orientation: Person, Place Current Interventions: Oxygen Observation: Pt is weak and has weakness of BUE. Pt requires assistance for self cares. Pt's helps him with self cares. Interventions - ROM Right Upper Extremity AROM: Slight limitation Left Upper Extremity AROM: WFL's - Strength Right Upper Extremity Strength: Mild Weakness Left Upper Extremity Strength: Mild Weakness - Sensation Right Upper Extremity Sensation: Intact/Normal Left Upper Extremity Sensation: Intact/Normal Balance - Sitting Balance Static Sitting Balance: Poor Dynamic Sitting Balance: Poor - Standing Balance Static Standing Balance: Poor Dynamic Standing Balance: Poor ADL Skills - Self Feeding Self Feeding: Independent - Grooming Grooming: Min Assist - Dressing Dressing UE: Min Assist Dressing LE: Min Assist - Toilet Management Toileting Management: Min Assist Functional Mobility - Transfers Sit to Stand: Mod Assist, 2 person assist Stand to Sit: Mod Assist, 2 person assist Comments:: Pt did ambulate to the toilet with CGA with cues to stay with walker and in walker. JUDE INDEX SCORE: . Additional Treatment Performed - Time with patient Length of Evaluation: 18 Total treatment time: 18 Activities Do you enjoy playing games?: No Would you be interested in leaving your room for activities?: No Would you enjoy group activities?: No Do you have difficulty with your vision?: Yes What types of things do you enjoy doing? Any Hobbies?: TV Patient Interests:: Watching Television, Visiting/Socializing Patient Education Patient Education: Education of diagnosis, Home Safety, Education of Plan of Care Teaching Recipient: Patient, Significant Other Teaching Methods: Discussion Assessment Problem List:: Decreased level of function, Requires training/education, Decreased safety/Risk of falls, Weakness, Pain limits previous level of function Rehab Potential: Good Further Therapy Indicated?: Yes Evaluation Complexity: HISTORY: Medium, EXAM OF BODY SYSTEMS: Medium, CLINICAL DECISION MAKING: Medium Patient's Goal(s): To get better and return home. Short Term Goals - Goals GOAL 1: Pt to increase BUE strength to 4/5. Goal to be met by: 09/01/19 GOAL 2: Pt to increase dyn. standing balance to Fair+ Goal to be met by: 09/01/19 Progress towards goal: Met GOAL 3: Pt to increase activity tolerance to 10 minutes. Goal to be met by: 09/01/19 Prison Goals GOAL 1: Pt to be SUP for Sit to stand transfers. Goal to be met by: 09/03/19 GOAL 2: Pt to increase activity tolerance to 15 minutes with rests PRN. Goal to be met by: 09/03/19 GOAL 3: Pt to be SUP for Toilet transfers with RW. Goal to be met by: 09/03/19 Plan Plan of Care: Therapeutic EX, Therapeutic Activity, Self-Care/Home Management Frequency of Treatment: 1-2 X day, as tolerated Duration of Treatment: 1 Week Anticipated Discharge Destination: Home Treatment Diagnosis (ICD 10 Codes): Muscle weakness M62.81, Z74.1 Need for assistance with personal care. Has the Physician been added for Co-signature?: Yes
--- NOTE | 2019-08-27 11:56 | PN ---
DATE OF SERVICE: 08/26/2019 SUBJECTIVE: The patient was seen and examined this morning. The patient's condition has improved remarkably. His appetite has improved. His mental status is a lot better. He is emotionally stable. His is in the room. REVIEW OF SYSTEMS: CONSTITUTIONAL: No night sweats. No fatigue, malaise, lethargy. No fever or chills. HEENT: Eyes: No visual changes. No eye pain. No eye discharge. ENT: No runny nose. No epistaxis. No sinus pain. No sore throat. No odynophagia. No congestion. RESPIRATORY: No cough, no congestion. No hemoptysis. No shortness of breath. CARDIOVASCULAR: No angina symptoms. No CHF symptoms. No atypical chest pain for CAD. No palpitations. No PND. No orthopnea. GASTROINTESTINAL: No abdominal pain. No nausea or vomiting. No diarrhea or constipation. No hematemesis. No hematochezia. Appetite has improved. GENITOURINARY: No urgency. No frequency. No dysuria. No hematuria. No obstructive symptoms. No discharge. No pain. No significant abnormal bleeding. MUSCULOSKELETAL: No musculoskeletal pain; no joint swelling. NEUROLOGICAL: No headache. No neck pain. No syncope. No seizures. No dizziness. PSYCHIATRIC: Not anxious. No depression. No suicidal thoughts. No homicidal thoughts. SKIN: No rash. No lesions. No wounds. ENDOCRINE: No unexplained weight loss. No weight gain. HEMATOLOGIC/LYMPHATIC: No anemia. No purpura. No petechiae. No prolonged or excessive bleeding. No palpable lymph nodes. PHYSICAL EXAMINATION: VITAL SIGNS: Temperature 97.8, pulse 100 irregular, respiratory rate 17, blood pressure 138/70 and pulse ox 94% on 3 liters. HEENT: Head normocephalic, atraumatic. Eyes: Extraocular muscles are intact. Pupils are equal, round and reactive to light and accommodation. Ears: No lesions. Nose appeared normal. Throat: No exudate or erythema. NECK: Supple. No JVD, no carotid bruit. No lymphadenopathy or thyromegaly. LUNGS: Decreased breath sounds with good air entry. Percussion note normal. Chest symmetrical. HEART: S1, S2, no S3. No murmurs. No cyanosis or clubbing. No ascites. Pulses: Dorsalis pedis and posterior tibial pulses +1 to +2 bilaterally. ABDOMEN: Soft. Nontender. Bowel sounds active. No CVA tenderness. No mass felt. EXTREMITIES: Trace to +1 pitting edema. The patient overall edema and fluid is much less. 10mg of Lasix helped. Full range of motion of all extremities, equal. NEUROLOGIC: No focal deficit. Cranial nerves II through XII are grossly intact. No headache, no double vision or headache. SKIN: Not dry. Intact. Turgor - normal. LYMPHATIC: No palpable lymph nodes/no lymphedema. MUSCULOSKELETAL: Normal joints with no swelling. Muscle tone is normal. LABS: Creatinine 1.7 with BUN 81 both have improved remarkably. His potassium is normal. Echocardiogram revealed dilated left ventricle which is more than previous echo, ejection fraction is the same 35%. ASSESSMENT: 1. Acute respiratory failure, resolved. The patient's oxygen saturation on room is close to 84-87%. I have to decrease the oxygen flow to 2 liter because of mild compensated respiratory acidosis noted on ABG. The patient is going to need home oxygen which he has it. Advised to wear it. When he goes to sleep his saturation drops to 85-86%. 2. Renal failure seems to be resolving. The patient's kidney functions are a lot better. Creatinine 1.7 and BUN 80. Improvement noted from previous reading. Urine out is adequate. Appetite and oral intake has improved. Kidney functions will get better. 3. Generalized edema seems to be resolving with improving nutritional status. The patient is advised at home to keep the legs up. 4. INR is acceptable, a little on higher side we will hold Coumadin for today. Daily INR to be done PLAN: 1. Continue Entresto CONDITION: Stabilizing The has been happy with the progress. CONDITION: Stabilizing with normalization of kidney functions. TIME SPENT: More than 30 minutes. Plan and coordination of the patient's care discussed in the presence of nurse. LAKESHIA
[2019-08-27] MEDS: COUMADIN PO SCH (17:07)
[2019-08-27] MEDS: TYLENOL PO PRN (20:57)
[2019-08-27] MEDS: ATIVAN PO PRN (20:57)
[2019-08-28] MEDS: PROTONIX PO SCH ×2 (06:08→16:20)
[2019-08-28 06:54] LABS: HEMATOCRIT 41.3 % (42.0-52.0)
[2019-08-28] MEDS: PREDNISONE PO SCH (09:13)
[2019-08-28] MEDS: CARDIZEM PO SCH ×4 (09:14→20:28)
[2019-08-28] MEDS: ENTRESTO 24 MG-26 MG TABLET PO SCH ×2 (09:14→20:28)
[2019-08-28] MEDS: COUMADIN PO SCH (16:20)
[2019-08-28] MEDS: ATIVAN PO PRN (16:20)
[2019-08-28] MEDS: TYLENOL PO PRN (20:28)
[2019-08-29] MEDS: PROTONIX PO SCH ×2 (05:30→16:36)
[2019-08-29] MEDS ORDERED: LASIX IVP STA (08:31)
[2019-08-29] MEDS: ATIVAN PO PRN ×2 (09:31→20:36)
[2019-08-29] MEDS: PREDNISONE PO SCH (09:31)
[2019-08-29] MEDS: ENTRESTO 24 MG-26 MG TABLET PO SCH ×2 (09:31→20:09)
[2019-08-29] MEDS: CARDIZEM PO SCH ×4 (09:31→20:10)
[2019-08-29] MEDS: COREG PO SCH ×2 (09:32→16:36)
[2019-08-29] MEDS: NEURONTIN PO SCH ×2 (16:36→20:09)
[2019-08-29] MEDS: COUMADIN PO SCH (16:36)
[2019-08-29] MEDS: TYLENOL PO PRN (20:35)
[2019-08-30] MEDS: LASIX TAB PO SCH (05:41)
[2019-08-30] MEDS: PROTONIX PO SCH ×2 (05:41→16:56)
[2019-08-30] MEDS: NEURONTIN PO SCH ×3 (08:13→20:52)
[2019-08-30] MEDS: PREDNISONE PO SCH (08:13)
[2019-08-30] MEDS: COREG PO SCH ×2 (08:13→16:56)
[2019-08-30] MEDS: ENTRESTO 24 MG-26 MG TABLET PO SCH ×2 (08:14→20:52)
[2019-08-30] MEDS: ATIVAN PO PRN (08:14)
[2019-08-30] MEDS: CARDIZEM PO SCH ×4 (08:14→20:53)
[2019-08-30] MEDS: NAMENDA PO SCH ×2 (13:10→20:53)
[2019-08-30] MEDS: COUMADIN PO SCH (16:56)
[2019-08-31 05:25] LABS: HEMATOCRIT 43.1 % (42.0-52.0)
[2019-08-31] MEDS: LASIX TAB PO SCH ×2 (06:07→06:34)
[2019-08-31] MEDS: PROTONIX PO SCH ×3 (06:07→17:13)
[2019-08-31] MEDS ORDERED: LASIX IM STA (07:26)
[2019-08-31] MEDS ORDERED: ATIVAN IM PRN (11:54)
[2019-08-31] MEDS ORDERED: TORADOL IM PRN (11:54)
[2019-08-31] MEDS ORDERED: TRANSDERM-SCOP 1.5 MG PATCH TD SCH (12:00)
[2019-08-31] MEDS: COREG PO SCH ×2 (12:27→17:13)
[2019-08-31] MEDS: CARDIZEM PO SCH ×4 (12:27→21:01)
[2019-08-31] MEDS: ENTRESTO 24 MG-26 MG TABLET PO SCH ×2 (12:28→21:01)
[2019-08-31] MEDS: PREDNISONE PO SCH (12:28)
[2019-08-31] MEDS: MORPHINE 2 MG/ML SYRINGE IM PRN ×2 (12:29→18:05)
[2019-08-31] MEDS: NAMENDA PO SCH ×2 (13:07→21:01)
[2019-08-31] MEDS: COUMADIN PO SCH (17:13)
[2019-08-31] MEDS ORDERED: SOLU-CORTEF 250 MG IM STA (21:20)
[2019-09-01] MEDS: PROTONIX PO SCH ×2 (05:50→16:55)
[2019-09-01] MEDS: LASIX TAB PO SCH (05:51)
[2019-09-01 05:53] LABS: HEMATOCRIT 38.5 % (42.0-52.0)
[2019-09-01] MEDS ORDERED: LASIX IM STA (08:14)
[2019-09-01] MEDS ORDERED: SOLU-CORTEF 250 MG IM STA (08:14)
[2019-09-01] MEDS ORDERED: ATIVAN IM PRN (08:16)
[2019-09-01] MEDS: ENTRESTO 24 MG-26 MG TABLET PO SCH ×2 (08:46→20:59)
[2019-09-01] MEDS: COREG PO SCH ×2 (08:46→16:54)
[2019-09-01] MEDS: CARDIZEM PO SCH ×4 (08:46→21:00)
[2019-09-01] MEDS: NAMENDA PO SCH ×2 (08:47→20:57)
[2019-09-01] MEDS: PREDNISONE PO SCH (08:47)
--- NOTE | 2019-09-01 09:11 | ED.PDOC ---
Procedures - IV/Art Line Insertion Location: rt wrist Invasive Line/IV Catheter Gauge: 22 Number of Attempts: 1 Blood Return Positive: Yes Invasive Line/IV Flushes Without Difficulty: Yes Conscious Sedation - Pre-op Assessment Weight: 248 lb Surgical History: APPENDECTOMY - Medical History Past Medical History: Hypertension, CVA, CHF Other History: NONE - Physical Exam Heart Rate/Rhythm: Bradycardia
--- NOTE | 2019-09-01 09:35 | PN ---
DATE OF SERVICE: 08/29/2019 SUBJECTIVE: The patient was seen and examined today. 83 year old white male hospitalized with pneumonia. The patient had respiratory failure, kidney failure and coagulopathy all the medical problems are under control. Pneumonia seems to be clinically resolved. Kidney function are improved remarkably with creatinine of 1.1, initially it was 2.7. BUN is still mildly elevated. The patient's coagulopathy has resolved now. The INR is 1.69 and he is on usual dose of Coumadin. REVIEW OF SYSTEMS: CONSTITUTIONAL: No night sweats. No fatigue, malaise, lethargy. No fever or chills. HEENT: Eyes: No visual changes. No eye pain. No eye discharge. ENT: No runny nose. No epistaxis. No sinus pain. No sore throat. No odynophagia. No congestion. RESPIRATORY: No cough, no congestion. No hemoptysis. No shortness of breath. CARDIOVASCULAR: No angina symptoms. No CHF symptoms. No atypical chest pain for CAD. No palpitations. No PND. No orthopnea. GASTROINTESTINAL: No abdominal pain. No nausea or vomiting. No diarrhea or constipation. No hematemesis. No hematochezia. GENITOURINARY: No urgency. No frequency. No dysuria. No hematuria. No obstructive symptoms. No discharge. No pain. No significant abnormal bleeding. MUSCULOSKELETAL: No musculoskeletal pain; no joint swelling. NEUROLOGICAL: No headache. No neck pain. No syncope. No seizures. No dizziness. PSYCHIATRIC: Not anxious. No depression. No suicidal thoughts. No homicidal thoughts. SKIN: No rash. No lesions. No wounds. Still some edema present in the calf muscle +1 and +2 on the thigh area. ENDOCRINE: No unexplained weight loss. No weight gain. HEMATOLOGIC/LYMPHATIC: No anemia. No purpura. No petechiae. No prolonged or excessive bleeding. No palpable lymph nodes. PHYSICAL EXAMINATION: VITAL SIGNS: Temperature 98, pulse 100 per minute, respiratory rate 20, blood pressure 133/94 and pulse ox 97%. HEENT: Head normocephalic, atraumatic. Eyes: Extraocular muscles are intact. Pupils are equal, round and reactive to light and accommodation. Ears: No lesions. Nose appeared normal. Throat: No exudate or erythema. NECK: Supple. No JVD, no carotid bruit. No lymphadenopathy or thyromegaly. LUNGS: Decreased breath sounds with good entry. Clear to auscultation. Percussion note normal. Chest symmetrical. HEART: S1, S2, no S3. No murmurs. No cyanosis or clubbing. No ascites. Pulses: Dorsalis pedis and posterior tibial pulses +1 to +2 bilaterally. ABDOMEN: Soft. Nontender. Bowel sounds active. No CVA tenderness. No mass felt. EXTREMITIES: +1 to trace edema pitting thigh has more edema. Full range of motion of all extremities, equal. NEUROLOGIC: No focal deficit. Cranial nerves II through XII are grossly intact. No headache, no double vision or headache. SKIN: Not dry. Intact. Turgor - normal. LYMPHATIC: No palpable lymph nodes/no lymphedema. MUSCULOSKELETAL: Normal joints with no swelling. Muscle tone is normal. ASSESSMENT: 1. Renal failure seems to be resolving 2. Respiratory failure has resolved. The patient has chronic respirator insufficiency with hypoxemia 3. Coagulopathy has resolved. INR is acceptable. 4. Hypertension seems to be more or less well controlled 5. Atrial fibrillation with somewhat rapid ventricular response PLAN: 1. The patient is going to be on home oxygen 1-2 liters 2. Discontinue the patient's Rosuvastatin, Fenofibrate, aspirin and Namenda permanently 3. Going to be started on Coreg 3.125mg twice a day which should control the blood pressure and should control the heart rate. 4. IV Lasix to be given 20mg today and will start him on 20mg PO Lasix 5. Advised to keep legs up and watch salt. is in the room and she is very happy with the patient's progress. CONDITION: Stable. TIME SPENT: More than 30 minutes. Plan and coordination of the patient's care discussed in the presence of nurse. LAKESHIA
--- NOTE | 2019-09-01 11:19 | PN ---
DATE OF SERVICE: 08/28/2019 SUBJECTIVE: 83 year old white male hospitalized with respiratory failure, kidney failure and coagulopathy. The patient's INR is 1.69 acceptable. He is on Coumadin. Respiratory failure has resolved. His oxygen saturation is 93% with 2 liters. He has no distress. Renal failure has resolved. The patient has chronic renal insufficiency with now creatinine of 1.3 and BUN of 62 much better than what it was a couple of days ago. The is present in the room. REVIEW OF SYSTEMS: CONSTITUTIONAL: No night sweats. No fatigue, malaise, lethargy. No fever or chills. HEENT: Eyes: No visual changes. No eye pain. No eye discharge. ENT: No runny nose. No epistaxis. No sinus pain. No sore throat. No odynophagia. No congestion. RESPIRATORY: No cough, no congestion. No hemoptysis. No shortness of breath. CARDIOVASCULAR: No angina symptoms. No CHF symptoms. No atypical chest pain for CAD. No palpitations. No PND. No orthopnea. GASTROINTESTINAL: No abdominal pain. No nausea or vomiting. No diarrhea or constipation. No hematemesis. No hematochezia. Appetite has improved. GENITOURINARY: No urgency. No frequency. No dysuria. No hematuria. No obstructive symptoms. No discharge. No pain. No significant abnormal bleeding. MUSCULOSKELETAL: No musculoskeletal pain; no joint swelling. NEUROLOGICAL: No headache. No neck pain. No syncope. No seizures. No dizziness. PSYCHIATRIC: Not anxious. No depression. No suicidal thoughts. No homicidal thoughts. SKIN: No rash. No lesions. No wounds. ENDOCRINE: No unexplained weight loss. No weight gain. HEMATOLOGIC/LYMPHATIC: No anemia. No purpura. No petechiae. No prolonged or excessive bleeding. No palpable lymph nodes. PHYSICAL EXAMINATION: GENERAL: The patient is walking around and ready to go home. VITAL SIGNS: Temperature 97.6, pulse 110, respiratory rate 20, blood pressure 156/97 and pulse ox 93%. HEENT: Head normocephalic, atraumatic. Eyes: Extraocular muscles are intact. Pupils are equal, round and reactive to light and accommodation. Ears: No lesions. Nose appeared normal. Throat: No exudate or erythema. NECK: Supple. No JVD, no carotid bruit. No lymphadenopathy or thyromegaly. LUNGS: Decreased breath sounds but clear to auscultation. Percussion note normal. Chest symmetrical. HEART: S1, S2, no S3. No murmurs. No cyanosis or clubbing. No ascites. Pulses: Dorsalis pedis and posterior tibial pulses +1 to +2 bilaterally. ABDOMEN: Soft. Nontender. Bowel sounds active. No CVA tenderness. No mass felt. EXTREMITIES: No edema. Full range of motion of all extremities, equal. NEUROLOGIC: No focal deficit. Cranial nerves II through XII are grossly intact. No headache, no double vision or headache. SKIN: Not dry. Intact. Turgor - normal. LYMPHATIC: No palpable lymph nodes/no lymphedema. MUSCULOSKELETAL: Normal joints with no swelling. Muscle tone is normal. LABS: Hgb 11.3, hct 41, WBC 10,000 normal differential, creatinine 1.3, BUN 62, potassium 4.5. ASSESSMENT: 1. Acute respiratory failure, resolved 2. Pneumonia, resolved clinically 3. Coagulopathy, resolved 4. Renal failure resolved now 5. Chronic kidney insufficiency like what patient had with creatinine 1.3 PLAN: 1. Continue to encourage to the patient to eat 2. Continue antibiotics, steroids and NEBS treatment 3. Up and about 4. Monitor INR CONDITION: Stable. TIME SPENT: More than 30 minutes. Plan and coordination of the patient's care discussed in the presence of nurse. LAKESHIA
[2019-09-01 12:56] VITALS: TEMP 97.5
--- NOTE | 2019-09-01 13:11 | PN ---
DATE OF SERVICE: 08/30/2019 SUBJECTIVE: The patient's condition seems to be improving. Appetite has improved. He was confused this morning according to the . Edema is much less. REVIEW OF SYSTEMS: CONSTITUTIONAL: No night sweats. No fatigue, malaise, lethargy. No fever or chills. HEENT: Eyes: No visual changes. No eye pain. No eye discharge. ENT: No runny nose. No epistaxis. No sinus pain. No sore throat. No odynophagia. No congestion. RESPIRATORY: No cough, no congestion. No hemoptysis. No shortness of breath. CARDIOVASCULAR: No angina symptoms. No CHF symptoms. No atypical chest pain for CAD. No palpitations. No PND. No orthopnea. GASTROINTESTINAL: No abdominal pain. No nausea or vomiting. No diarrhea or constipation. No hematemesis. No hematochezia. GENITOURINARY: No urgency. No frequency. No dysuria. No hematuria. No obstructive symptoms. No discharge. No pain. No significant abnormal bleeding. MUSCULOSKELETAL: No musculoskeletal pain; no joint swelling. NEUROLOGICAL: No headache. No neck pain. No syncope. No seizures. No dizziness. PSYCHIATRIC: Not anxious. No depression. No suicidal thoughts. No homicidal thoughts. Confusion this morning. SKIN: No rash. No lesions. No wounds. ENDOCRINE: No unexplained weight loss. No weight gain. HEMATOLOGIC/LYMPHATIC: No anemia. No purpura. No petechiae. No prolonged or excessive bleeding. No palpable lymph nodes. PHYSICAL EXAMINATION: VITAL SIGNS: Temperature 97.6, pulse 90, respiratory rate 20, blood pressure 124/72 and pulse ox 93% on 2 liters. HEENT: Head normocephalic, atraumatic. Eyes: Extraocular muscles are intact. Pupils are equal, round and reactive to light and accommodation. Ears: No lesions. Nose appeared normal. Throat: No exudate or erythema. NECK: Supple. No JVD, no carotid bruit. No lymphadenopathy or thyromegaly. LUNGS: Decreased breath sounds but clear to auscultation. Percussion note normal. Chest symmetrical. HEART: S1, S2, no S3. No murmurs. No cyanosis or clubbing. No ascites. Pulses: Dorsalis pedis and posterior tibial pulses +1 to +2 bilaterally. ABDOMEN: Soft. Nontender. Bowel sounds active. No CVA tenderness. No mass felt. EXTREMITIES: Trace to 1+ pitting edema. There is still +1 pitting edema on the thigh. Full range of motion of all extremities, equal. NEUROLOGIC: No focal deficit. Cranial nerves II through XII are grossly intact. No headache, no double vision or headache. SKIN: Not dry. Intact. Turgor - normal. LYMPHATIC: No palpable lymph nodes/no lymphedema. MUSCULOSKELETAL: Normal joints with no swelling. Muscle tone is normal. LABS: hgb 11.1, hct 42, WBC 7,700 normal differential, creatinine 1.3, BUN 44, potassium 4.3 ASSESSMENT: 1. Acute respiratory failure has resolved 2. Pneumonia seems to have resolved 3. Acute renal failure has resolved 4. Coagulopathy has resolved now, INR is 1.7 PLAN: 1. Encourage the patient to eat 2. Leg elevation 3. Continue PO Lasix 4. Start Namenda, Namenda could have caused mild confusion. 5. Increase the dose of Neurontin CONDITION: Stable, improving. Still has a little ways to go as far as the patient's kidney functions and respiratory functions are concerned. TIME SPENT: More than 30 minutes. Plan and coordination of the patient's care discussed in the presence of nurse. LAKESHIA
--- NOTE | 2019-09-01 13:32 | PN ---
DATE OF SERVICE: 09/01/2019 SUBJECTIVE: 83 year old white male hospitalized with acute respiratory failure, acute renal failure and coagulopathy. The patient's INR has been normal The patient's respiratory status deteriorated within past 24 hours. He is on BIPAP. This morning the blood gasses on BIPAP showed a lot improvement. pO2 73, pCO2 54, pH 7.33 with oxygen saturation of 93% with 45% FiO2. The patient's pH went down to 7.19 with pCO2 77 last night. The patient is going to be started on high flow oxygen to see whether he can tolerate or not. The patient is very restless with BIPAP. The patient has gone into congestive heart failure with generalized anasarca. It is a combination of a lot of factors of this sick patient. The patient doesn't seem to be in distress. He is awake, confused. REVIEW OF SYSTEMS: CONSTITUTIONAL: No night sweats. No fatigue, malaise, lethargy. No fever or chills. HEENT: Eyes: No visual changes. No eye pain. No eye discharge. ENT: No runny nose. No epistaxis. No sinus pain. No sore throat. No odynophagia. No congestion. RESPIRATORY: No cough, no congestion. No hemoptysis. No shortness of breath. CARDIOVASCULAR: No angina symptoms. No CHF symptoms. No atypical chest pain for CAD. No palpitations. No PND. No orthopnea. GASTROINTESTINAL: No abdominal pain. No nausea or vomiting. No diarrhea or constipation. No hematemesis. No hematochezia. GENITOURINARY: No urgency. No frequency. No dysuria. No hematuria. No obstructive symptoms. No discharge. No pain. No significant abnormal bleeding. MUSCULOSKELETAL: No musculoskeletal pain; no joint swelling. NEUROLOGICAL: No headache. No neck pain. No syncope. No seizures. No dizziness. PSYCHIATRIC: Not anxious. No depression. No suicidal thoughts. No homicidal thoughts. SKIN: No rash. No lesions. No wounds. ENDOCRINE: No unexplained weight loss. No weight gain. HEMATOLOGIC/LYMPHATIC: No anemia. No purpura. No petechiae. No prolonged or excessive bleeding. No palpable lymph nodes. PHYSICAL EXAMINATION: VITAL SIGNS: Temperature 97.5, pulse 80, respiratory rate 19, blood pressure 120/70 and pulse ox 93%. HEENT: Head normocephalic, atraumatic. Eyes: Extraocular muscles are intact. Pupils are equal, round and reactive to light and accommodation. Ears: No lesions. Nose appeared normal. Throat: No exudate or erythema. NECK: Supple. No JVD, no carotid bruit. No lymphadenopathy or thyromegaly. LUNGS: Decreased breath sounds with mild wheeze. Clear to auscultation. Percussion note normal. Chest symmetrical. HEART: S1, S2 muffled, no S3. No murmurs. No cyanosis or clubbing. No ascites. Pulses: Dorsalis pedis and posterior tibial pulses +1 to +2 bilaterally. ABDOMEN: Soft. Nontender. Bowel sounds active. No CVA tenderness. No mass felt. Garcia Catheter in. EXTREMITIES: Sacral edema of the thigh +2, pitting edema of the legs +1. Full range of motion of all extremities, equal. NEUROLOGIC: No focal deficit. Cranial nerves II through XII are grossly intact. No headache, no double vision or headache. SKIN: Not dry. Intact. Turgor - normal. LYMPHATIC: No palpable lymph nodes/no lymphedema. MUSCULOSKELETAL: Normal joints with no swelling. Muscle tone is normal. LABS: Hgb 10.5, hct 38, WBC 12,000 normal differential, creatinine 1.4, BUN 52, potassium 4.9, INR 2.1. ASSESSMENT: 1. Respiratory failure seems to be controlled with BIPAP and high flow oxygen 2. Congestive heart failure 3. Possible aspiration pneumonia seems to be have resolved 4. Renal failure seems to be improving and stable with creatinine 1.4 and BUN 52. The patient has improved from his admission but has deteriorated over past couple of days to some extent PLAN: 1. Continue to given IV Solu-Cortef dose per dose. We will given 125mg this morning IM. 2. We will try to get an IV going 3. IM Lasix 40mg 4. Continue to monitor ABG on CMP PROGNOSIS: Poor The is in the room and explained about the findings and has settled with the fact that anything could go wrong with the patient. TIME SPENT: More than 30 minutes. Plan and coordination of the patient's care discussed in the presence of nurse. LAKESHIA
[2019-09-01] MEDS: MORPHINE 2 MG/ML SYRINGE IM PRN (14:26)
[2019-09-01] MEDS ORDERED: LASIX IVP STA (14:57)
[2019-09-01] MEDS ORDERED: ATIVAN IVP PRN (15:00)
[2019-09-01] MEDS ORDERED: MORPHINE 2 MG/ML SYRINGE IVP PRN (15:00)
[2019-09-01] MEDS: COUMADIN PO SCH (16:53)
[2019-09-01] MEDS ORDERED: TRANSDERM-SCOP 1.5 MG PATCH TD SCH (17:30)
[2019-09-01 20:21] VITALS: BP 109/59
[2019-09-01] MEDS: MORPHINE 2 MG/ML SYRINGE IVP PRN (21:39)
[2019-09-01] MEDS: ATIVAN IVP PRN (21:40)
[2019-09-02] MEDS: MORPHINE 2 MG/ML SYRINGE IVP PRN (00:35)
[2019-09-02] MEDS: ATIVAN IVP PRN (02:02)
--- NOTE | 2019-09-02 03:03 | PCM.PROG ---
Time of : 02:55 Preliminary Cause of : per attending
--- NOTE | 2019-09-02 09:25 | PN ---
DATE OF SERVICE: 08/31/2019 SUBJECTIVE: 83 year old white male hospitalized with acute respiratory failure, acute renal failure and coagulopathy. The patient's condition has deteriorated. Last night the patient was somewhat drowsy and this morning when the blood gasses were done his pH was 7.10 with pCO2 more than 100. The patient had CO2 narcosis with obtundation. REVIEW OF SYSTEMS: CONSTITUTIONAL: No night sweats. No fatigue, malaise, lethargy. No fever or chills. HEENT: Eyes: No visual changes. No eye pain. No eye discharge. ENT: No runny nose. No epistaxis. No sinus pain. No sore throat. No odynophagia. No congestion. RESPIRATORY: No cough, no congestion. No hemoptysis. No shortness of breath. CARDIOVASCULAR: No angina symptoms. No CHF symptoms. No atypical chest pain for CAD. No palpitations. No PND. No orthopnea. GASTROINTESTINAL: No abdominal pain. No nausea or vomiting. No diarrhea or constipation. No hematemesis. No hematochezia. GENITOURINARY: No urgency. No frequency. No dysuria. No hematuria. No obstructive symptoms. No discharge. No pain. No significant abnormal bleeding. MUSCULOSKELETAL: No musculoskeletal pain; no joint swelling. NEUROLOGICAL: No headache. No neck pain. No syncope. No seizures. No dizziness. PSYCHIATRIC: Not anxious. No depression. No suicidal thoughts. No homicidal thoughts. SKIN: No rash. No lesions. No wounds. ENDOCRINE: No unexplained weight loss. No weight gain. HEMATOLOGIC/LYMPHATIC: No anemia. No purpura. No petechiae. No prolonged or excessive bleeding. No palpable lymph nodes. PHYSICAL EXAMINATION: GENERAL: The patient doesn't seem to be in distress but he has been complaining of pain generalized. VITAL SIGNS: Temperature 97.2, pulse 100 irregular, respiratory rate 18, blood pressure 110/60 and pulse ox 94% with 50% BIPAP. HEENT: Head normocephalic, atraumatic. Eyes: Extraocular muscles are intact. Pupils are equal, round and reactive to light and accommodation. Ears: No lesions. Nose appeared normal. Throat: No exudate or erythema. NECK: Supple. No JVP, no carotid bruit. No lymphadenopathy or thyromegaly. LUNGS: Clear to auscultation. Percussion note normal. Chest symmetrical. HEART: S1, S2, Questionable S3. No murmurs. No cyanosis or clubbing. No ascites. Pulses: Dorsalis pedis and posterior tibial pulses +1 to +2 bilaterally. ABDOMEN: Soft. Protuberant. Bowel sounds active. No CVA tenderness. No mass felt. EXTREMITIES: Generalized edema noted +1 to +2. Full range of motion of all extremities, equal. NEUROLOGIC: No focal deficit. Cranial nerves II through XII are grossly intact. No headache, no double vision or headache. SKIN: Not dry. Intact. Turgor - normal. LYMPHATIC: No palpable lymph nodes/no lymphedema. MUSCULOSKELETAL: Normal joints with no swelling. Muscle tone is normal. LABS: Hgb 11.3, hct 43, WBC 14,000 normal differential, creatinine 1.5, BUN 51, potassium 5. CO2 31. Glucose 120. ASSESSMENT: 1. Acute respiratory failure with hypercapnia 2. The patient's main problem that tipped the balance of respiratory failure with probably aspiration with congestive heart failure. The patient has dilated cardiomyopathy so IV 80mg Lasix IM was given because unable to access of IV site. The patient has good urine output. He already has a Garcia Catheter. 3. Renal failure. The patient's kidney functions are more or less stable considering his day to day change at least for now. 4. Dementia with obtundation is combination of CO2 narcosis along with deterioration of his mental condition from dementia and [facility] stay in the hospital. 5. Coagulopathy has resolved with INR of 2.0. PLAN: 1. Start BIPAP, seems to be working slowly. Now pH 7.2 and pCO2 is down to 80- 85. Will continue BIPAP 2. The patient's family is in the room, as usual is present in the room. Explained the findings that patient is in very critical condition with congestive heart failure and respiratory failure. I explained the whole plan how we are treating it. 3. The patient is DNR. 4. The patient is going to be given Toradol pain which the patient has been complaining, 30mg Q 6 hours 5. Morphine sulfate which may help the congestive heart failure and restlessness 2mg every 4 hourly. 6. Ativan 0.5mg 6 hourly PRN. 7. He is going to be on Scopolamine patch for secretions that he is unable to swallow especially saliva. Talked to the cardiopulmonary tech who is going to suction him every hourly PRN. 8. ABG monitoring is going to be done. The patient's family's inclination is to keep him comfortable. Explained to them that by given all this medication for the comfort measure may effect his respiratory status. We may have to balance it out. PROGNOSIS: Poor CONDITION: Critical TIME SPENT: More than 60 minutes. Plan and coordination of the patient's care discussed in the presence of nurse. LAKESHIA
--- NOTE | 2019-09-03 09:08 | DS ---
DATE OF SERVICE: 09/02/19 - FINAL DIAGNOSIS: 1. ACUTE RESPIRATORY FAILURE WITH CONGESTIVE HEART FAILURE/PNEUMONIA/CHRONIC LUNG DISEASE 2. RENAL FAILURE 3. ATRIAL FIBRILLATION 4. HISTORY OF MULTIPLE STROKES 5. DILATED CARDIOMYOPATHY 6. HYPERTENSION 7. DYSLIPIDEMIA 8. MORBID OBESITY 9. GENERALIZED OSTEOARTHRITIS 10. PERIPHERAL NEUROPATHY 11. HISTORY OF MULTIPLE STROKES HOSPITAL COURSE: 83-year-old white male was hospitalized on 08/19/19 with acute respiratory failure, acute renal failure, coagulopathy with INR of 15. The patient was treated in the hospital successfully with practically respiratory failure seemed to have resolved, resolution of pneumonia along with renal failure. Coagulopathy also improved with normalization of INR ratio. The patient was practically restarted on all medication except few. His condition as far as respiratory status started deteriorating three days ago with predominating factors this time seemed to be congestive heart failure. The patient was treated with IV Lasix was started. He was also given intermittent dose of steroids. The patient's arterial blood gases clearly indicated respiratory failure, c02 narcosis. The patient was treated with BIPAP to some extent with some improvement. Again, the patient's condition continued to deteriorate. He continued to fight his BIPAP. Ultimately the family decided not to have BIPAP and was put on high flow oxygen. Congestive heart failure and generalized anasarca continued to worsen in spite of IV Lasix. Deterioration of his condition with dementia and earlier stroke made it difficult for the patient to swallow his own saliva and needed to be constantly suctioned. I think part of saliva continued to aspirate and make his respiratory status even worsen. The patient because of acute respiratory failure that had improved remarkably but deteriorated. Congestive heart failure with underlying dilated cardiomyopathy with low ejection fraction being the culprit. The patient at 0245 hours this morning. The patient was DNR. TIME SPENT: More than 60 minutes. LAKESHIA
--- NOTE | 2019-09-03 09:11 | PN ---
BILLING 08/19/19 CRITICAL CARE MORE THAN TWO HOURS 08/20/19 INTERMEDIATE 08/21/19 INTERMEDIATE 08/22/19 INTERMEDIATE 08/23/19 INTERMEDIATE 08/24/19 INTERMEDIATE 08/25/19 INTERMEDIATE 08/26/19 INTERMEDIATE 08/27/19 INTERMEDIATE 08/28/19 INTERMEDIATE 08/29/19 INTERMEDIATE 08/30/19 INTERMEDIATE 08/31/19 EXTENSIVE 09/01/19 EXTENSIVE 09/02/19 DISCHARGE () MTDD
== END 2019-09-02 04:15 | disposition expired | DRG 204 ==
LOC: ED 13:51 → MEDSURG B 17:03 → SCU 17:26
PROVIDERS: ADMIT Internal Medicine; ATTEND Internal Medicine
DX: E87.5 Hyperkalemia; R06.89 Other abnormalities of breathing; D68.9 Coagulation defect, unspecified; J44.9 Chronic obstructive pulmonary disease, unspecified; I42.9 Cardiomyopathy, unspecified; R13.10 Dysphagia, unspecified; E86.0 Dehydration; Z79.01 Long term (current) use of anticoagulants; Z86.73 Personal history of transient ischemic attack (TIA), and cerebral infarction without residual deficits; G62.9 Polyneuropathy, unspecified; I42.2 Other hypertrophic cardiomyopathy; I48.91 Unspecified atrial fibrillation; I95.9 Hypotension, unspecified; R06.02 Shortness of breath; I49.9 Cardiac arrhythmia, unspecified; I50.9 Heart failure, unspecified; N40.0 Benign prostatic hyperplasia without lower urinary tract symptoms; F03.90 Unspecified dementia, unspecified severity, without behavioral disturbance, psychotic disturbance, mood disturbance, and anxiety; R60.1 Generalized edema; R42 Dizziness and giddiness; M15.9 Polyosteoarthritis, unspecified; J69.0 Pneumonitis due to inhalation of food and vomit; N17.9 Acute kidney failure, unspecified; R53.83 Other fatigue; M54.9 Dorsalgia, unspecified; E66.01 Morbid (severe) obesity due to excess calories; Z79.899 Other long term (current) drug therapy; R60.9 Edema, unspecified; R53.1 Weakness; E78.5 Hyperlipidemia, unspecified; I10 Essential (primary) hypertension